=== PATIENT | male | born 1960 | race African-American/Black ===

== ENCOUNTER 2018-08-03 21:09 | Inpatient (IN) | payer MEDICARE ==
--- NOTE | 2018-08-03 22:23 | RAD ---
RIGHT FEMUR TWO VIEWS: 08/03/18 HISTORY: Right leg pain. FINDINGS: Degenerative changes of the hip and knee. Femoral shaft is intact. Right hip not well evaluated, with multiple linear lucencies across the femoral neck on both views. IMPRESSION: Incomplete evaluation of the right hip. If symptoms are referable to the right hip, please consider d edicated hip radiograph exam. No acute osseous abnormalities are apparent. POS: ED
[2018-08-03] MEDS ORDERED: Fentanyl 100 MCG/2 ML VIAL ONE (22:26)
[2018-08-03 22:29] LABS: #Eosinphils 0.1 thou/uL (0.0-0.7); #Lymphocytes 1.5 thou/uL (1.20-3.40); #Neutrophils 8.1 thou/uL (1.40-6.50); %Basophils 0.4 % (0.0-1.0); %Eosinophils 0.7 % (0.0-10.0); %Lymphocytes 14.1 % (21.0-51.0); %Monocytes 9.3 % (0.0-10.0); %Neutrophils 75.4 % (42.0-75.0); Hemoglobin 10.4 g/dL (14.0-18.0); Mean Corpuscular HGB CONC 30.2 g/dL (32.0-36.0); Mean Corpuscular Hemoglobin 25.6 pg (27.0-31.0); Mean Corpuscular Volume 84.8 fL (78.0-98.0); Mean Platelet Volume 7.4 fL (7.4-10.4); Platelet Count 311 thou/uL (130-400); RBC Distribution Width 14.1 % (11.5-14.5); Red Blood Cell (RBC) Count 4.07 mill/uL (4.70-6.10); White Blood Cell (WBC) Count 10.7 thou/uL (4.8-10.8)
--- NOTE | 2018-08-03 22:49 | RAD ---
RIGHT HIP TWO VIEWS: 08/03/18 HISTORY: Right hip injury. FINDINGS: Minimally displaced fracture extends from the greater trochanter to the base of the lesser trochanter . Degenerative changes right hip. Osseous structures are demineralized. IMPRESSION: Intertrochanteric fracture right hip. POS: ED
[2018-08-03 22:52] LABS: ALT (SGPT) 15 U/L (8-55); AST (SGOT) 16 U/L (5-34); Albumin 4.1 g/dL (3.5-5.0); Alkaline Phosphatase 81 U/L (40-150); Anion Gap 15 mmol/L (10-20); BUN (Urea Nitrogen) 21 mg/dL (8.4-25.7); Bilirubin, Total 0.5 mg/dL (0.2-1.2); Calc. Creatinine Clearance 0 mL/min (70-130); Calcium 9.6 mg/dL (7.8-10.44); Carbon Dioxide 29 mmol/L (22-29); Chloride 98 mmol/L (98-107); Estimated GFR-MDRD 13; Globulin 3.7 g/dL (2.4-3.5); Glucose 249 mg/dL (70-105); Potassium 4.5 mmol/L (3.5-5.1); Protein, Total 7.8 g/dL (6.0-8.3); Sodium 137 mmol/L (136-145)
--- NOTE | 2018-08-03 23:23 | RAD ---
CHEST ONE VIEW: 08/03/18 HISTORY: Preop. COMPARISON: 09/29/16. FINDINGS: Cardiac silhouette is magnified by projection. Pulmonary vasculature are unremarkable. Mediastinum is midline. Chronic thickening of the pleura along the right lateral lower chest is stable. No lobar co nsolidation or evidence of pneumothorax. IMPRESSION: No active cardiopulmonary abnormalities are demonstrated. POS: [facility]
[2018-08-03] MEDS ORDERED: Dextrose 5% in Water 1,000 ML IV PRN ×2 (23:35→23:44)
[2018-08-03] MEDS ORDERED: HumaLOG 300 UNITS/3 ML VIAL SC PRN ×2 (23:35→23:44)
[2018-08-03] MEDS ORDERED: Promethazine HCl 25 MG/ML VIAL SLOW IVP PRN (23:35)
[2018-08-03] MEDS ORDERED: Dextrose 50% Abboject 50 ML SYRINGE SLOW IVP PRN ×2 (23:35→23:44)
[2018-08-03] MEDS ORDERED: HYDROcodone/Acetaminophen 10/325 mg Tablet PO PRN (23:35)
[2018-08-03] MEDS ORDERED: traMADol HCl 50 MG TAB PO PRN (23:40)
[2018-08-03] MEDS ORDERED: Acetaminophen 325 MG TAB PO SCH (23:59)
[2018-08-03] MEDS ORDERED: traMADol HCl 50 MG TAB PO SCH (23:59)
[2018-08-04] MEDS ORDERED: Promethazine HCl 25 MG/ML VIAL SLOW IVP PRN ×2 (02:35→16:52)
[2018-08-04] MEDS ORDERED: HYDROcodone/Acetaminophen 10/325 mg Tablet PO PRN (02:35)
[2018-08-04] MEDS ORDERED: Dextrose 5% in Water 1,000 ML IV PRN (02:38)
[2018-08-04] MEDS ORDERED: Dextrose 50% Abboject 50 ML SYRINGE SLOW IVP PRN (02:39)
--- NOTE | 2018-08-04 02:54 | HP ---
DATE OF SERVICE: 08/03/[address] Girish Holbrook from the emergency department. TRAUMA ATTENDING: Dr. Shelton. REASON FOR ADMISSION: Right intertrochanteric hip fracture. HISTORY OF PRESENT ILLNESS: Mr. Thapa is a 58-year-old male with a past medical history of diabetic nephropathy; leading to ERSD on hemodialysis Tuesday, , and Tuesday; CHF; hypertension, who presented to the emergency department today status post mechanical fall landing on his right side. X-rays demonstrate a right intertrochanteric hip fracture. The patient has been given pain control. His vital signs have remained stable. He received his dialysis today. He has no chest pain, no mele rtness of breath, no nausea, no vomiting, and no other distress. Trauma services were contacted for admission to the hospital. Dr. Zacarias with Orthopedics has been consulted and plan for operative repair in the morning. REVIEW OF SYSTEMS: Pertinent positive and negative per the HPI, otherwise regarded as negative. PAST MEDICAL HISTORY: 1. Diabetes. 2. ESRD. 3. Congestive heart failure. 4. Hypertension. PAST SURGICAL HISTORY: Left fistula placement. MEDICATIONS: Tramadol 50 mg 1-2 tabs p.o. 4 times daily as needed, hydralazine 25 mg p.o. 3 times da brandon, simvastatin 40 mg p.o.at night, Renvela 1600 mg p.o. t.i.d., lisinopril 10 mg p.o. daily, Humuli n 70/30, 17 units subcu daily, Lasix 80 mg b.i.d., carvedilol 12.5 mg b.i.d. ALLERGIES: No known drug allergies. FAMILY HISTORY: Mother with coronary artery disease and breast cancer. Father with diabetes. SOCIAL HISTORY: The patient is a former smoker, quitting over 25 years ago; former alcohol abuse, qu itting 2 years ago. Denies any illicit drug use. He currently lives in [place] and he is unable to work. He uses a cane to walk about. He has been . PHYSICAL EXAMINATION: VITAL SIGNS: Blood pressure 139/72, heart rate is 77. He is breathing 14 times a minute, satting 99 % on room air and temperature is 98.2. GENERAL: A 58-year-old male lying in bed, in no acute distress other than some mild pain to the righ t hip. HEENT: Normocephalic, atraumatic. Trachea is midline. Mucous membranes are moist. NECK: No JVD is appreciated. RESPIRATORY: Equal rise and fall. Bilateral breath sounds. Clear to auscultation upper and lower b ilaterally. No rubs or wheezes appreciated. CARDIOVASCULAR: Regular rate and rhythm. No murmurs are appreciated and really no edema in the extr emities with strong pulses. ABDOMEN: Soft and nontender. No grimace, no masses. PELVIS: Stable. MUSCULOSKELETAL: Pain to the right hip on palpation. He does have sensation distal to his right hip fracture. EXTREMITIES: He has got strong pedal pulses bilaterally. No edema. No open wounds and strong pulse s in the upper extremities. He does have a left upper extremity fistula with a good thrill noted. PSYCHIATRIC: Normal mood and affect. NEUROLOGIC: Alert and oriented to person, place, time, and event. DIAGNOSTIC AND LABORATORY DATA: Sodium is 137, potassium 4.5, chloride is 98, CO2 is 29, BUN is 21, creatinine is 5.48, glucose is 249, calcium 9.6, AST and ALT 16 and 15 respectively, alkaline phospha tase is 81. White blood cell of 10.7, platelets of 311, hemoglobin and hematocrit 10.4 and 34.5 resp ectively. He has an EKG that shows a sinus rhythm with rate of 79 with no ectopy. QTC is slightly p rolonged at 460 milliseconds. He has no STEMI, no ischemia is appreciated in all other intervals. T here are within normal axis. Femur x-ray shows a right intertrochanteric hip fracture. A hip x-ray shows a right intertrochanteric hip fracture. ASSESSMENT AND PLAN: 1. Right intertrochanteric hip fracture. 2. Hyperglycemia in the setting of diabetes without evidence of diabetic ketoacidosis. 3. History of end-stage renal disease. 4. Acute traumatic pain. PLAN: 1. Admit the patient to the surgery contre[facility]. 2. Orthopedic Surgery, Dr. Zacarias has been consulted, appreciate recommendations. 3. Pain control as needed tonight. We will try to use oral agents and schedule Tylenol and tramadol , morphine, and [place] as needed. 4. Phenergan for nausea as needed. Hold Zofran secondary to prolonged QTC. 5. Type and screen. 6. Repeat CBC and BMP in the morning to confirm no anemia or active bleeding secondary to his fractu re and stable for surgery. 7. Continue home medications to control blood pressure. 8. Moderate sliding scale insulin q.4 hours. 9. Point of care glucose q.4 hours. 10. N.p.o. now for possible surgery in the morning. We will withhold fluids, given patient has ESRD status, producing some but little urine. Diet will be n.p.o. until after surgery. 11. Activity: Bed rest. 12. FULL CODE. 13. Prophylaxis. We will be renally dosed famotidine, SCDs and withhold chemical deep venous thromb osis prophylaxis until after operative correction. 14. Consults will be PT, OT, and case management. 15. Access: Peripheral IVs. DISPOSITION: Surgery contre[facility]. I have coordinated care with the emergency department physician, the ER staff who has already talked to Dr. Zacarias. I have updated the patient at the bedside and answered all questions.
[2018-08-04 02:56] VITALS: BMI 27.5
[2018-08-04] MEDS: traMADol HCl 50 MG TAB PO SCH ×4 (06:00→23:31)
[2018-08-04] MEDS: Acetaminophen 325 MG TAB PO SCH ×4 (06:00→23:30)
[2018-08-04] MEDS ORDERED: CEFAZOLIN/Water 2 GM/20 ML SYRINGE SLOW IVP SCH (07:30)
[2018-08-04] MEDS: Sevelamer Carbonate 800 MG TAB PO SCH ×3 (07:41→18:14)
[2018-08-04] MEDS: Famotidine 20 MG TAB PO SCH (07:41)
[2018-08-04] MEDS: NIFEdipine XL 30 MG TAB PO SCH ×2 (07:42→08:25)
--- NOTE | 2018-08-04 07:48 | CON ---
DATE OF CONSULTATION: 08/04/2018 CHIEF COMPLAINT: Right hip pain. HISTORY OF PRESENT ILLNESS: Mr. Thapa is a 58-year-old male who was out in front of his house yeste rday. He lost his balance. He fell. He struck his hip on the curb. He was unable to ambulate. He was helped up with his family. He was taken to the emergency department. Of note, he is on dialysi s for end-stage renal disease. He did receive dialysis yesterday morning. His pain is under control . He has been stable overnight. PAST MEDICAL HISTORY: Diabetes, end-stage renal disease, congestive heart failure, and hypertension. PAST SURGICAL HISTORY: Fistula placement left arm. ALLERGIES: No known drug allergies. FAMILY MEDICAL HISTORY: Noncontributory. REVIEW OF SYSTEMS: Positive for right hip pain. SOCIAL HISTORY: The patient denies tobacco, alcohol, or drug use. PHYSICAL EXAMINATION: VITAL SIGNS: Temperature 98.8, pulse is 90, respiratory rate 18, oxygen saturation 97%, blood pressu re 135/78. GENERAL: He is alert and oriented, lying supine in no apparent distress. HEENT: Normocephalic, atraumatic. RESPIRATORY: The patient is breathing comfortably. MUSCULOSKELETAL: The right leg is atraumatic in appearance. There is no ecchymosis, no laceration. He does have some external rotation and slight shortening. He is able flex and extend the foot and ankle distally. Warm and well perfused leg. IMAGES: X-rays of the right hip demonstrate an intertrochanteric femur fracture with mild displaceme nt. IMPRESSION: A 58-year-old male on dialysis with a right intertrochanteric femur fracture. PLAN: At this point, the patient will need to go to surgery. I will plan for a dynamic hip screw fi xation to restore stability to the hip and allow him early mobilization. Goal of surgery is to preve nt complications of prolonged bed rest. Pain will be improved as well. He is aware of. surgical pl an and wants to proceed. He will have ongoing dialysis at his regular schedule an as needed, guided by the Renal Service as well as preoperative and perioperative medical optimization. He will have ap propriate DVT prophylaxis and antibiotic prophylaxis. He should be n.p.o.
[2018-08-04] MEDS ORDERED: Sevelamer Carbonate 800 MG TAB PO SCH (08:00)
[2018-08-04] MEDS: Carvedilol 25 MG TAB PO SCH ×2 (08:27→21:16)
[2018-08-04] MEDS ORDERED: Famotidine 20 MG TAB PO SCH (09:00)
[2018-08-04] MEDS ORDERED: Carvedilol 6.25 MG TAB PO SCH ×2 (09:00)
[2018-08-04] MEDS ORDERED: hydrALAZINE 25 MG TAB PO SCH ×2 (09:00)
--- NOTE | 2018-08-04 11:32 | CON ---
DATE OF CONSULTATION: 08/04/2018 CONSULTING PHYSICIAN: Dr. Vieira REASON FOR CONSULTATION: End-stage renal disease, evaluation and care. REASON FOR ADMISSION: Fall and right hip fracture. HISTORY OF PRESENT ILLNESS: This is a 58-year-old male with history of end-stage renal disease on hemodialysis Tuesday, , and Tuesday, diabetic nephropathy, hypertension, who came to the hospital with a fall and was found to have a fracture and is having surgical evaluation. Nephrology consulted for maintenance hemodialysis. The patient gets dialysis Tuesday, and Tuesday at [facility] and denies any nausea, vomiting, no chest pain, no shortness of breath. Complains of right leg pain. PAST MEDICAL HISTORY: Positive for end-stage renal disease, type 2 diabetes, congestive heart failure, hypertension. PAST SURGICAL HISTORY: Dialysis access placement. HOME MEDICATIONS: Tramadol, hydralazine, simvastatin, Renvela, ____ ____, Lasix , carvedilol, insulin. ALLERGIES: No known drug allergies. SOCIAL HISTORY: No smoking, alcohol or illicit drug abuse. History of smoking in the past. FAMILY HISTORY: Positive for breast cancer, CVA and coronary artery disease. REVIEW OF SYSTEMS: The following complete review of systems was negative, unless otherwise mentioned in the HPI or below: Constitutional: Weight loss or gain, ability to conduct usual activities. Skin: Rash, itching. Eyes: Double vision, pain. ENT/Mouth: Nose bleeding, neck stiffness, pain, tenderness. Cardiovascular: Palpitations, dyspnea on exertion, orthopnea. Respiratory: Shortness of breath, wheezing, cough, hemoptysis, fever or night sweats. Gastrointestinal: Poor appetite, abdominal pain, heartburn, nausea, vomiting, constipation, or diarrhea. Genitourinary: Urgency, frequency, dysuria, nocturia. Musculoskeletal: Pain, swelling. Neurologic/Psychiatric: Anxiety, depression. Allergy/Immunologic: Skin rash, bleeding tendency. PHYSICAL EXAMINATION: GENERAL: This is a well-built male in no apparent distress. VITAL SIGNS: Temperature 98, pulse 89, respiratory rate 18, blood pressure 148/ 83. Musculoskeletal : No tenderness, No edema HEENT: Atraumatic normocephalic Neck: Supple Cardiovascular: S1S2 heard, Rate and rhythm regular Respiratory: Clear to auscultation Gastrointestinal: Abdomen is soft Dermatologic : No skin rash Neurologic: Alert and awake and oriented X3 No focal neurologic deficits. Moving all the extremities. Psychiatric: Mood and affect normal LABS: Hemoglobin 10.4, potassium 4.5, BUN 21, creatinine is 5.4. ASSESSMENT AND PLAN: 1. End-stage renal disease. Continue dialysis Tuesday, and Tuesday. No acute need for dialysis. 2. Edema, controlled. 3. Hypertension, stable. 4. Anemia. Monitor. 5. Right hip fracture. Follow with Orthopedics. Plan is to continue dialysis Tuesday, and Tuesday. The patient is a moderate risk from a kidney standpoint or surgery and okay to have surgery. Continue dialysis Tuesday, and Tuesday. We will follow. Thank you for the consult. KATE
[2018-08-04] MEDS ORDERED: ePHEDrine/0.9% NaCl/PF SYRINGE 50 mg/10 ml ONE (14:21)
[2018-08-04] MEDS ORDERED: Lidocaine 1% PF 5 ML VIAL ONE (14:21)
[2018-08-04] MEDS ORDERED: PHENYLEPHRINE-NS 100 MCG/ML 10 ML SYRINGE ONE (14:21)
[2018-08-04] MEDS ORDERED: PROPOFOL 200 MG/20 ML VIAL ONE (14:21)
[2018-08-04] MEDS ORDERED: Ondansetron PF 4 MG/2 ML Vial ONE (14:21)
[2018-08-04] MEDS ORDERED: CEFAZOLIN/Water 2 GM/20 ML SYRINGE ONE (15:09)
[2018-08-04] MEDS ORDERED: Fentanyl 100 MCG/2 ML VIAL ONE ×2 (15:19→17:19)
--- NOTE | 2018-08-04 16:10 | PRG ---
DATE OF SERVICE: 08/04/2018 SUBJECTIVE: The patient is hospital day #2 status post ground level fall in which he sustained a rig ht hip fracture. The patient is currently on the surgical floor. He has been n.p.o. since midnight. He is scheduled to undergo his orthopedic procedure today. The patient's pain has been controlled overnight and currently has no complaints. The patient is awaiting to be evaluated by Nephrology. Lena danielson is a known patient of Dr. Alonso for his end-stage renal disease. We will let him discuss continuing his scheduled dialysis while he is here inpatient. PHYSICAL EXAMINATION: VITAL SIGNS: Temperature 98.8, heart rate 89, blood pressure 148/83, respirations 18, oxygen saturat ion 96% on room air. GENERAL: The patient is resting comfortably in bed. He is awake, alert, and oriented x3. [place] c kennedy scale 15. HEENT: Unremarkable. LUNGS: Clear to auscultation with good inspiratory and expiratory effort. HEART: Regular rate and rhythm. ABDOMEN: Soft, flat, nontender with hypoactive bowel sounds. Pelvis is stable. The patient is tend er to palpation to right hip consistent with his fracture. NEUROLOGIC: He is neurovascularly intact x4. LABORATORY DATA: There are no labs or radiographs to review this morning. ASSESSMENT AND PLAN: 1. Status post ground level fall. 2. Right hip fracture, awaiting surgical procedure by Orthopedics. 3. Known end-stage renal disease, awaiting evaluation and plans for dialysis. Plan will be to continue supportive care. Postoperatively, the patient will have physical and occupa tional therapy, pain control and we will assess for placement. The evaluation and examination were d iscussed with Dr. Donovan this morning.
[2018-08-04] MEDS ORDERED: Ondansetron HCl/PF 4 MG/2 ML Vial IVP PRN (16:52)
[2018-08-04] MEDS ORDERED: Promethazine HCl 25 MG/ML VIAL IM PRN (16:52)
--- NOTE | 2018-08-04 20:53 | RAD ---
TWO VIEWS RIGHT HIP 08/04/18 INDICATION: Right hip nail. COMPARISON: Prior exam dated 08/03/18. FINDINGS: Since the comparison examination there has been interval placement of the hip screw and side plate tr ansfixing the patient's right hip intertrochanteric fracture. Fracture alignment is near anatomic. Th e instrumentation projects in the expected position. Total fluoroscopic time was 50.7 seconds. Total exposure was 10.19 mGy. IMPRESSION: ORIF right hip. POS: ED
[2018-08-04] MEDS ORDERED: Simvastatin 20 MG TAB PO SCH (21:00)
--- NOTE | 2018-08-04 21:06 | OP ---
DATE OF PROCEDURE: 08/04/2018 PROCEDURE: Reduction and fixation of right intertrochanteric femur fracture using dynamic hip screw. PREOPERATIVE DIAGNOSIS: Right intertrochanteric femur fracture. POSTOPERATIVE DIAGNOSIS: Right intertrochanteric femur fracture. COMPLICATIONS: None. ESTIMATED BLOOD LOSS: 150 mL. SURGEON: Shoaib Zacarias M.D. MAIL AGENT: Douglas Varela. ESTIMATED BLOOD LOSS: 150 mL. IMPLANTS: Synthes dynamic hip screw 100 mm screw with 3-hole side plate. INDICATIONS: Mr. Thapa is a 58-year-old male who fell. He fractured the right proximal femur. He was found to have an intertrochanteric fracture that required surgery. Risks have been reviewed in d etail. He elected to proceed with the operation. DESCRIPTION OF PROCEDURE: Mr. Thapa was identified in the preoperative holding area. He was alena d to the operating room. His correct extremity was marked. He was positioned supine. He was placed in traction on the fracture table. The right lower extremity was prepped and draped in sterile fash ion. At this point, we used intraoperative x-ray to obtain an appropriate start point. We then made an incision along the lateral thigh. We dissected down to the fascia, it was incised. We then spli t the vastus lateralis. This brought us directly down to the femur. At this point, we applied our 1 35-degree angle guide. We inserted a guidewire into the center position of the femoral head. We debi cked this in orthogonal planes. At this point, we overdrilled the guidewire. We then placed our jaz tral screw. Next, we impacted a side plate. A 3-hole plate was used. We placed 3 distal screws thr ough the plate. This fixed the fracture rigidly and all hardware was in an acceptable position. At this point, we thoroughly irrigated and closed the deep fascia as well as superficial tissue layer s appropriately. A sterile dressing was applied. The patient was taken to the recovery room in good condition without complication.
[2018-08-04] MEDS: Simvastatin 20 MG TAB PO SCH (21:15)
[2018-08-04] MEDS: CEFAZOLIN/Water 2 GM/20 ML SYRINGE SLOW IVP SCH (23:34)
[2018-08-05 05:11] LABS: #Eosinphils 0.2 thou/uL (0.0-0.7); #Lymphocytes 1.2 thou/uL (1.20-3.40); #Monocytes 0.8 thou/uL (0.11-0.59); #Neutrophils 6.9 thou/uL (1.40-6.50); %Basophils 0.3 % (0.0-1.0); %Eosinophils 2.6 % (0.0-10.0); %Lymphocytes 12.5 % (21.0-51.0); %Monocytes 9.2 % (0.0-10.0); %Neutrophils 75.4 % (42.0-75.0); Mean Corpuscular HGB CONC 31.5 g/dL (32.0-36.0); Mean Corpuscular Volume 85.6 fL (78.0-98.0); Mean Platelet Volume 7.9 fL (7.4-10.4); Platelet Count 234 thou/uL (130-400); Red Blood Cell (RBC) Count 3.34 mill/uL (4.70-6.10); White Blood Cell (WBC) Count 9.2 thou/uL (4.8-10.8)
[2018-08-05 05:26] LABS: Anion Gap 14 mmol/L (10-20); BUN (Urea Nitrogen) 39 mg/dL (8.4-25.7); Calc. Creatinine Clearance 13 mL/min (70-130); Carbon Dioxide 30 mmol/L (22-29); Chloride 94 mmol/L (98-107); Estimated GFR-MDRD 8; Glucose 164 mg/dL (70-105); Magnesium 2.2 mg/dL (1.6-2.6); Phosphorus 7.6 mg/dL (2.3-4.7); Potassium 4.6 mmol/L (3.5-5.1); Sodium 133 mmol/L (136-145)
[2018-08-05] MEDS: traMADol HCl 50 MG TAB PO SCH ×4 (05:28→23:39)
[2018-08-05] MEDS: Acetaminophen 325 MG TAB PO SCH ×4 (05:28→23:39)
[2018-08-05] MEDS: CEFAZOLIN/Water 2 GM/20 ML SYRINGE SLOW IVP SCH (06:06)
[2018-08-05] MEDS: Sevelamer Carbonate 800 MG TAB PO SCH ×3 (08:09→18:26)
[2018-08-05] MEDS ORDERED: Epoetin (ESRD) 10,000 UNITS/ML VIAL IVP SCH (09:00)
--- NOTE | 2018-08-05 10:21 | PRG ---
DATE OF SERVICE: 08/05/2018 SUBJECTIVE: Patient was seen and examined at bedside and overnight events noted. Patient denies any shortness of breath or chest pain or palpitation. No history of nausea or vomiting or diarrhea or fever or chills or cramps. OBJECTIVE: GENERAL: This is a well-built male in no apparent distress. VITAL SIGNS: Temperature 99.4, pulse 92, respirations 18, blood pressure 108/ 64. HEENT: Atraumatic, normocephalic. Oral mucosa is moist. NECK: Supple. CARDIOVASCULAR: S1, S2 heard. Rate and rhythm regular. RESPIRATORY: Clear to auscultation. GASTROINTESTINAL: Abdomen is soft. MUSCULOSKELETAL: No tenderness. No edema. DERMATOLOGIC: No skin rash. NEUROLOGIC: Alert and awake and oriented x3. No focal neurologic deficits. Moving all the extremities. PSYCHIATRIC: Mood and affect normal. LABORATORY DATA: Potassium is 4.6, BUN 39, creatinine 3.4. ASSESSMENT AND PLAN: 1. End-stage renal disease. We will continue dialysis. 2. Edema, controlled. 3. Hypertension, stable. 4. Anemia, stable. We will add Epogen. Plan is to continue dialysis as tolerated. MTDD
[2018-08-05] MEDS: Famotidine 20 MG TAB PO SCH (14:56)
[2018-08-05] MEDS: NIFEdipine XL 30 MG TAB PO SCH (14:59)
[2018-08-05] MEDS: Carvedilol 25 MG TAB PO SCH ×2 (15:00→20:13)
--- NOTE | 2018-08-05 17:00 | PRG ---
DATE OF SERVICE: 08/05/2018 SUBJECTIVE: The patient is hospital day #3, postop day #1 status post right hip fracture. Yesterday , he underwent reduction and fixation of his right intertrochanteric femur fracture using a dynamic h ip screw by Dr. Zacarias. The patient tolerated this procedure well. He was also evaluated by Neph rology yesterday because he is a patient known to them with end-stage renal disease. The patient is due to have dialysis today. We are hoping that he will be able to participate with physical therapy prior to his dialysis session. Otherwise, the patient had no issues overnight. He is tolerating a d iet this morning and his pain is controlled. PHYSICAL EXAMINATION: VITAL SIGNS: Temperature is 99.4, heart rate 92, blood pressure 108/64, respirations 16, oxygen satu ration 98% on 2 liters via nasal cannula. GENERAL: The patient is resting comfortably in bed. He is awake, alert, oriented, his [place] coma scale is 15. HEENT: Unremarkable. LUNGS: Clear to auscultation with good inspiratory and expiratory effort. HEART: Regular rate and rhythm. ABDOMEN: Soft, flat, nontender with active bowel sounds. EXTREMITIES: Neurovascularly intact x4. Postop dressing is clean, dry, and intact. LABORATORY DATA AND IMAGING DATA: White blood cell count 9.2, hemoglobin 9.0, hematocrit 28.[address] atelets 234. Sodium 133, potassium 4.6, chloride 94, CO2 30, BUN 39, creatinine 8.40, glucose 164, m agnesium 2.2 and phosphorus 7.6. There are no radiographs to review this morning. ASSESSMENT AND PLAN: 1. Status post ground level fall. 2. Status post open reduction and internal fixation of right hip fracture. 3. End-stage renal disease, awaiting dialysis. Plan will be to continue supportive care, physical and occupational therapy, pain control and await f inal placement decision. The patient does have a rehab screen ordered. The evaluation and examinati on were discussed with Dr. Donovan this morning.
[2018-08-05] MEDS: Simvastatin 20 MG TAB PO SCH (20:15)
[2018-08-05] MEDS: HumaLOG 300 UNITS/3 ML VIAL SC PRN (21:51)
[2018-08-06 05:36] LABS: #Eosinphils 0.2 thou/uL (0.0-0.7); #Lymphocytes 1.2 thou/uL (1.20-3.40); #Monocytes 1.2 thou/uL (0.11-0.59); #Neutrophils 5.4 thou/uL (1.40-6.50); %Basophils 0.3 % (0.0-1.0); %Eosinophils 2.1 % (0.0-10.0); %Lymphocytes 14.7 % (21.0-51.0); %Monocytes 14.8 % (0.0-10.0); %Neutrophils 68.2 % (42.0-75.0); Hemoglobin 8.3 g/dL (14.0-18.0); Mean Corpuscular HGB CONC 30.7 g/dL (32.0-36.0); Mean Corpuscular Hemoglobin 26.3 pg (27.0-31.0); Mean Corpuscular Volume 85.5 fL (78.0-98.0); Platelet Count 212 thou/uL (130-400); RBC Distribution Width 13.6 % (11.5-14.5); Red Blood Cell (RBC) Count 3.14 mill/uL (4.70-6.10); White Blood Cell (WBC) Count 7.9 thou/uL (4.8-10.8)
[2018-08-06] MEDS: traMADol HCl 50 MG TAB PO SCH ×4 (05:51→23:14)
[2018-08-06] MEDS: Acetaminophen 325 MG TAB PO SCH ×4 (05:52→23:14)
[2018-08-06 05:58] LABS: Anion Gap 12 mmol/L (10-20); BUN (Urea Nitrogen) 26 mg/dL (8.4-25.7); Calc. Creatinine Clearance 17 mL/min (70-130); Carbon Dioxide 31 mmol/L (22-29); Chloride 95 mmol/L (98-107); Estimated GFR-MDRD 11; Glucose 164 mg/dL (70-105); Potassium 4.3 mmol/L (3.5-5.1); Sodium 134 mmol/L (136-145)
[2018-08-06] MEDS: HumaLOG 300 UNITS/3 ML VIAL SC PRN ×3 (06:30→17:38)
[2018-08-06] MEDS: Sevelamer Carbonate 800 MG TAB PO SCH ×3 (08:21→17:38)
[2018-08-06] MEDS: Carvedilol 25 MG TAB PO SCH ×2 (08:22→20:35)
[2018-08-06] MEDS: NIFEdipine XL 30 MG TAB PO SCH (08:23)
[2018-08-06] MEDS: Famotidine 20 MG TAB PO SCH (08:24)
[2018-08-06] MEDS: traMADol HCl 50 MG TAB PO PRN (09:38)
--- NOTE | 2018-08-06 14:36 | PRG ---
DATE OF SERVICE: 08/06/2018 SUBJECTIVE: Patient was seen and examined at bedside and overnight events noted. Patient denies any shortness of breath or chest pain or palpitation. No history of nausea or vomiting or diarrhea or f ever or chills or cramps. OBJECTIVE: GENERAL: This is a well-built male, in no apparent distress. VITAL SIGNS: Temperature 97.3, pulse 80, respiratory rate 18, blood pressure 120/70. HEENT: Atraumatic, normocephalic. Oral mucosa is moist. NECK: Supple. CARDIOVASCULAR: S1, S2 heard. Rate and rhythm regular. RESPIRATORY: Clear to auscultation. GASTROINTESTINAL: Abdomen is soft. MUSCULOSKELETAL: No tenderness. No edema. DERMATOLOGIC: No skin rash. NEUROLOGIC: Alert and awake and oriented x3. No focal neurologic deficits. Moving all the extremit ies. PSYCHIATRIC: Mood and affect normal. LABORATORY DATA: Potassium is 4.3, BUN is 26, creatinine is 6.3. ASSESSMENT AND PLAN: 1. End-stage renal disease. We will continue on dialysis as tolerated. 2. Hypertension. 3. Edema. 4. Anemia. Monitor hemoglobin. 5. started with dialysis. 6. We will continue on dialysis as tolerated.
--- NOTE | 2018-08-06 14:51 | PRG ---
DATE OF SERVICE: 08/06/2018 SUBJECTIVE: The patient is hospital day #4, postop day #2, status post right hip fracture for which underwent open reduction internal fixation. The patient tolerated the procedure well. Yesterday, he started working with physical therapy. The patient also underwent his scheduled dialysis which murali use of him being fatigued, he was not able to participate as well as possible with physical therapy. Overnight, he had no issues. This morning, he is tolerating his diet and is attempting again to wor k with physical therapy. PHYSICAL EXAMINATION: VITAL SIGNS: Temperature is 98.6, heart rate 96, blood pressure 118/62, respirations 18, oxygen satu ration 92% on 1 liter via nasal cannula. GENERAL: The patient is resting comfortably in bed. He is awake, alert, and oriented x3. [place] c kennedy scale is 15. HEENT: Unremarkable. LUNGS: Clear to auscultation with good inspiratory and expiratory effort. HEART: Regular rhythm. ABDOMEN: Soft, flat, nontender with active bowel sounds. Pelvis is stable. Postop dressing is delisa n, dry, and intact. EXTREMITIES: Neurovascularly intact. LABORATORY DATA: White blood cell count 7.9, hemoglobin 8.3, hematocrit 26.7, platelets 212. Sodium 134, potassium 4.3, chloride 95, CO2 of 31, BUN 26, creatinine is 6.31, glucose 164, magnesium 2.0, phosphorus 6.0. There are no radiographs to review this morning. ASSESSMENT AND PLAN: 1. Status post ground level fall. 2. Status post open reduction internal fixation of right hip fracture. 3. End-stage renal disease. Plan will be to continue supportive care, scheduled dialysis, and await placement decision. The eval uation and examination will be discussed with Dr. Donovan after this dictation.
[2018-08-06] MEDS: Simvastatin 20 MG TAB PO SCH (20:32)
[2018-08-07] MEDS: traMADol HCl 50 MG TAB PO SCH ×2 (05:16→11:15)
[2018-08-07] MEDS: Acetaminophen 325 MG TAB PO SCH ×2 (05:17→11:15)
[2018-08-07 05:49] LABS: Anion Gap 15 mmol/L (10-20); BUN (Urea Nitrogen) 42 mg/dL (8.4-25.7); Calc. Creatinine Clearance 12 mL/min (70-130); Calcium 9.2 mg/dL (7.8-10.44); Carbon Dioxide 28 mmol/L (22-29); Chloride 93 mmol/L (98-107); Estimated GFR-MDRD 8; Glucose 124 mg/dL (70-105); Magnesium 2.4 mg/dL (1.6-2.6); Phosphorus 7.2 mg/dL (2.3-4.7); Potassium 4.4 mmol/L (3.5-5.1); Sodium 132 mmol/L (136-145)
[2018-08-07 06:25] LABS: Band 2 % (5-11); Eosinophils 4 % (0-10); Hemoglobin 8.1 g/dL (14.0-18.0); Hypochromia SLIGHT = 6-15 cells (100X) (0-5/hpf); Lymphocytes 19 % (21-51); MDiff Complete? YES; Mean Corpuscular HGB CONC 30.9 g/dL (32.0-36.0); Mean Corpuscular Hemoglobin 26.4 pg (27.0-31.0); Mean Corpuscular Volume 85.3 fL (78.0-98.0); Mean Platelet Volume 7.8 fL (7.4-10.4); Monocytes 8 % (0-10); Neutrophil 67 % (42-75); PLT Morphology Comment Appears Adequate; Platelet Count 235 thou/uL (130-400); Polychromasia SLIGHT = 2-3 cells (100X) (0-2/hpf); RBC Distribution Width 13.5 % (11.5-14.5); Red Blood Cell (RBC) Count 3.07 mill/uL (4.70-6.10); White Blood Cell (WBC) Count 6.4 thou/uL (4.8-10.8)
[2018-08-07] MEDS: traMADol HCl 50 MG TAB PO PRN (08:55)
[2018-08-07] MEDS: Sevelamer Carbonate 800 MG TAB PO SCH ×2 (08:55→12:55)
[2018-08-07] MEDS: Famotidine 20 MG TAB PO SCH (08:56)
[2018-08-07] MEDS: NIFEdipine XL 30 MG TAB PO SCH (08:56)
[2018-08-07] MEDS: Carvedilol 25 MG TAB PO SCH (08:56)
--- NOTE | 2018-08-07 10:55 | PRG ---
DATE OF SERVICE: 08/07/2018 SUBJECTIVE: This is a 58-year-old gentleman being seen for end-stage renal disease. The patient den ied any nausea, vomiting or chest pain. PHYSICAL EXAMINATION: GENERAL: The patient is awake, alert. VITAL SIGNS: Pulse 75, breathing 16, blood pressure is 104/68. OBJECTIVE: See above. Awake, alert, in no acute distress. GENERAL APPEARANCE AND MENTAL STATUS: Fair. HEAD/NECK: Normocephalic. Atraumatic. EYES: EOMI. No deformity. EARS: Clear. No ulcers. NOSE: Intact. No lesions. MOUTH: Clear. No discharge. THROAT: Clear. No exudate. LUNGS: Clear. No crackles. CARDIAC: S1, S2. No rub. ABDOMEN: Benign. BS+. GENITALIA/RECTUM: Mckenzie absent. BACK/EXTREMITIES: Edema 0+ Ulcer- NEUROLOGICAL: Alert and motor intact. SKIN: Rash- Bruise- LYMPHATICS: Edema- Ulcer- LABORATORY DATA: Show hemoglobin 8.1. ASSESSMENT AND RECOMMENDATIONS: 1. Stage 6 chronic kidney disease, plan hemodialysis. 2. Hypertension, stable. 3. Anemia, stable. 4. Medication based on glomerular filtration rate are appropriate.
[2018-08-07 16:05] VITALS: BP 120/66; TEMP 98.3
--- NOTE | 2018-08-08 02:36 | DIS-2 ---
DATE OF ADMISSION: 08/04/2018 DATE OF DISCHARGE: 08/07/2018 RESIDENT: Monica Dykes MD SUPERVISING ATTENDING: Dr. Donovan. CONSULTS: Case management, Orthopedics, Nephrology, PT, OT. PROCEDURE: On 08/04/2018, reduction and fixation of right intertrochanteric femur fracture using dynamic hip screw. PRIMARY DIAGNOSIS: Right intertrochanteric hip fracture, status post fixation. SECONDARY DIAGNOSES: Diabetes, end-stage renal disease on dialysis, congestive heart failure, hypertension. DISCHARGE MEDICATIONS: 1. Acetaminophen (Tylenol extra strength) 1000 mg oral every 6 hours as needed. 2. Aspirin 81 mg oral twice daily. 3. Ibuprofen 800 mg oral every 8 hours as needed. 4. Tramadol (Ultram) 50 mg oral every 6 hours. 5. Simvastatin 40 mg oral at bedtime. 6. Humulin 70/30 20 units subcutaneously daily. 7. Lisinopril 20 mg oral daily. 8. Sevelamer carbonate (Renvela) 2400 mg oral 3 times daily with meals. 9. Carvedilol 37.5 mg oral twice daily. 10. Nifedipine (Procardia-XL) 30 mg oral daily. DISCONTINUED MEDICATIONS: None. HISTORY OF PRESENT ILLNESS AND HOSPITAL COURSE: This is a 58-year-old male who fell outside his home on 08/03/2018 after losing his balance. The patient has a significant past medical history of end-stage renal disease on dialysis, CHF, and hypertension. The patient was found to have a right intertrochanteric hip fracture. The patient was then admitted to the surgery [facility] and Orthopedic Surgery was consulted for fixation of the fracture. The patient underwent reduction and fixation of the fracture on 08/[address] Zacarias. He tolerated the surgery well and returned to his room in good condition without complication. The patient received physical and occupational therapy after surgery. The patient has remained vitally stable throughout his stay. The patient has been pain controlled with Tylenol and Ultram. Nephrology was also consulted during his stay as the patient is known to them with end-stage renal disease. The patient receives dialysis yesterday and will continue with dialysis as tolerated. The patient has been tolerating his diet well, has passed flatus and had a bowel movement. The patient is being discharged to [facility]. They will provide transportation for patient to attend dialysis Tuesday, , and Tuesday. The patient was seen and examined by Dr. Donovan on the day of discharge who is in agreement with the plan above. The patient's questions were answered and he acknowledged understanding of the plan. Dr. Donovan also called Dr. Bonds to inform him of the plan. DISPOSITION: Stable. DISCHARGE INSTRUCTIONS: 1. Location: [facility]. 2. Diet: Regular. 3. Activity: Weight bearing as tolerated. 4. Followup: Follow up with primary care physician, Dr. Bonds within 7 days. Follow up with Ortho in 7-10 days. MTDD
--- NOTE | 2018-08-12 13:23 | EKG ---
Test Reason : Blood Pressure : / mmHG Vent. Rate : 079 BPM Atrial Rate : 079 BPM P-R Int : 136 ms QRS Dur : 080 ms QT Int : 402 ms P-R-T Axes : 051 013 044 degrees QTc Int : 460 ms Normal sinus rhythm Nonspecific T wave abnormality Prolonged QT Abnormal ECG Confirmed by STEPH LOPEZ ([id number]), scientific editor WAGNER HEARD ([id number]) on 08/12/2018 1:22:55 PM Referred By: Confirmed By:STEPH LOPEZ
== END 2018-08-07 16:50 | DRG 480 ==
LOC: ERS 21:09 → SURG A 08-04 02:21
PROVIDERS: ADMIT Specialist; ATTEND Specialist
PROC: 0QS604Z Reposition Right Upper Femur with Internal Fixation Device, Open Approach (ICD-10-PCS; principal; 2018-08-04)
PROC: 5A1D70Z Performance of Urinary Filtration, Intermittent, Less than 6 Hours Per Day (ICD-10-PCS; 2018-08-05)
DX: S72.141A Displaced intertrochanteric fracture of right femur, initial encounter for closed fracture (principal); N18.6 End stage renal disease; I13.2 Hypertensive heart and chronic kidney disease with heart failure and with stage 5 chronic kidney disease, or end stage renal disease; W18.30XA Fall on same level, unspecified, initial encounter; E11.21 Type 2 diabetes mellitus with diabetic nephropathy; E11.22 Type 2 diabetes mellitus with diabetic chronic kidney disease; I50.9 Heart failure, unspecified; Z99.2 Dependence on renal dialysis; Z87.891 Personal history of nicotine dependence; E11.65 Type 2 diabetes mellitus with hyperglycemia; D64.9 Anemia, unspecified
CPT/HCPCS: 36415; 36416; 71045; 76001; 80048; 80053; 83735; 84100; 85025; 86850; 86900; 86901; 90935; 93005; 94760; 96374; C1713; C1769; G0257; G0390; G8978-GP-CM; G8979-GP-CK; G8987-GO-CM; G8988-GO-CK; J2001; J2270; J2405; J2704; J3010; Q4081

== ENCOUNTER 2020-04-08 18:40 | Inpatient (IN) | payer MEDICARE ==
[2020-04-08] MEDS ORDERED: Dextrose 5% in Water 1,000 ML IV PRN (21:10)
[2020-04-08] MEDS ORDERED: Ondansetron ODT 4 MG TAB PO PRN (21:10)
[2020-04-08] MEDS ORDERED: HumaLOG 300 UNITS/3 ML VIAL SC PRN (21:10)
[2020-04-08] MEDS ORDERED: Ondansetron PF 4 MG/2 ML Vial IVP PRN (21:10)
[2020-04-08] MEDS ORDERED: Dextrose 50% Abboject 50 ML SYRINGE SLOW IVP PRN (21:10)
[2020-04-08] MEDS ORDERED: Bisacodyl 5 MG TAB PO PRN (21:33)
--- NOTE | 2020-04-08 21:40 | PDOC.FPRHP ---
- History of Present Illness Chief Complaint: syncope, shortness of breath History of Present Illness: 59yo AAM with h/o ESRD on HD, CHF, IDDMII, HTN, legally blind, and CVA with residual L-sided deficits who presented via direct admit from [facility] ED for syncopal episodes and acute hypoxic respiratory failure 2/2 R pleural effusion. Patient himself poor historian, history obtained from patient , , and ED documentation. Patient was at routine HD today, was then notified that patient had syncopal episode and low blood pressure. He was given IVF and returned to baseline and was transported home. At home, patient had orthostatic syncopal episode while transferring off bus. EMS was then called and patient was transported to ED. states he had 1 additional syncopal episode, lasting a few seconds, on Tuesday but otherwise these are new events. No recent illness, no fevers, chills, n/v, constipation. Few loose stools. Patient unsure of any blood in stools 2/2 legal blindness. He also endorses intermittent, cramping, abdominal pain, unassociated with food, presents for at least 1 month. also states he has become progressively short of breath over past month, no acute events. Patient denies any SOB himself as well as no CP, SANTIZO, and does not endorse syncopal episodes. Further history obtained from , patient was admitted to [facility] in [place] for SOB and found to have "fluid on lungs" that required thoracentesis. This was about 6 months ago. unsure of any results and have not had follow up regarding this. ED Course: Given 500cc NS bolus. - Allergies/Adverse Reactions Allergies Allergy/AdvReac Type Severity Reaction Status Date / Time No Known Allergies Allergy Verified 01/05/20 08:28 - Home Medications Medication Instructions Recorded Confirmed Type Carvedilol 37.5 mg PO BID 08/04/18 04/08/20 History prednisoLONE Acetate [Prednisolone 1 drop EA EYE DAILY 08/13/18 04/08/20 History Acetate] Bisacodyl [Dulcolax] 10 mg PO DAILYPRN PRN tab 09/05/18 04/08/20 Rx Loperamide HCl [Imodium] 2 mg PO PRN PRN cap 09/05/18 04/08/20 Rx Simvastatin [Zocor] 40 mg PO HS tab 09/05/18 04/08/20 Rx Calcium Acetate [Phoslo] 1,334 mg PO ASDIR 04/08/20 04/08/20 History Calcium Acetate [Phoslo] 2,668 mg PO TID-WM 04/08/20 04/08/20 History Losartan [Cozaar] 50 mg PO DAILY 04/08/20 04/08/20 History NIFEdipine [Procardia XL] 60 mg PO DAILY 04/08/20 04/08/20 History HumuLIN 70/30 [HumuLIN 70/30 Vial] 20 units SC DAILY 04/09/20 04/09/20 History - History PMHx: CVA x2, most recent in 2018 with L-sided deficits CHF HTN IDDMII ESRD on HD T,,Sat Legally Blind PSHx: L AV graft for HD access FHx: Mom and aunt with unknown cancers Social: , lives in [place] with . 25+py smoking history, quit in 1994. No EtOH or illicit drug use. - Review of Systems General: reports: fatigue. denies: fever/chills, weight/appetite/sleep changes , night sweats Eyes: reports: vision changes (chronic legally blind) ENT: denies: nasal congestion, rhinorrhea Respiratory: reports: shortness of breath. denies: cough, congestion Cardiovascular: reports: paroxysmal nocturnal dyspnea, orthopnea (2 pillow). denies: chest pain, palpitation, edema Gastrointestinal: reports: diarrhea (x1 daily), abdominal pain. denies: nausea , vomiting, constipation Skin: denies: rashes Musculoskeletal: denies: pain Neurological: reports: syncope - Vital signs 83kg Selected Entries 04/08/20 20:09 Temperature 98.5 F Pulse Rate 76 Blood Pressure 124/74 [Semi-Fowlers] Respiratory 22 H Rate O2 Sat by Pulse 93 L Oximetry Oxygen Flow 2 Rate Oxygen Delivery Nasal Cannula Method - Physical Exam Constitutional: NAD, awake, alert and oriented, well developed HEENT: conjunctiva clear, no scleral icterus, other (completely blind, hard of hearing) Neck: supple, trachea midline, no JVD Heart: RRR, normal S1/S2, no murmurs/rubs/gallops, pulses present, no edema Lungs: no respiratory distress, no wheezing, no retractions, other (No breath sounds on R as compared to L. Decreased tactile fremitus on R. Asymmetric egophany. Dullness to percussion on entire R side of lung. Belly breathing.) Abdomen: soft, non-tender, bowel sounds present Musculoskeletal: normal structure, normal tone Neurological: other (generalized weakness) Skin: no rash/lesions, other Heme/Lymphatic: no unusual bruising or bleeding, no purpura, no petechia Psychiatric: normal mood and affect, good judgment and insight, intact recent and remote memory FMR H&P: Results - Labs Lab results: Hb 7.0. Plt 448. Wbc 4.5 - Radiology Interpretation Chest x-ray Status: image reviewed by me (R hemithorax opacification with L midline shift), report reviewed by me CT scan - head Status: report reviewed by me (no acute process) CT scan - chest Status: image reviewed by me (Complete opacification of R pleural cavity with L midline shift), report reviewed by me FMR H&P: A/P - Problem List (1) Pleural effusion Current Visit: Yes Status: Acute Code(s): J90 - PLEURAL EFFUSION, NOT ELSEWHERE CLASSIFIED (2) Acute respiratory failure with hypoxia Current Visit: Yes Status: Acute Code(s): J96.01 - ACUTE RESPIRATORY FAILURE WITH HYPOXIA (3) ESRD (end stage renal disease) on dialysis Current Visit: Yes Status: Chronic Code(s): N18.6 - END STAGE RENAL DISEASE ; Z99.2 - DEPENDENCE ON RENAL DIALYSIS (4) Hypertension Current Visit: Yes Status: Chronic Code(s): I10 - ESSENTIAL (PRIMARY) HYPERTENSION - Plan 59yo AAM with h/o ESRD on HD, CHF, IDDMII, HTN, legally blind, and CVA with residual L-sided deficits who presented via direct admit from [facility] ED for syncopal episodes and acute hypoxic respiratory failure 2/2 R pleural effusion. #Acute hypoxic respiratory failure 2/2 R pleural effusion - CXR and CTA with R massive pleural effusion with complete R lung collapse and L midline shift - Pulm, Dr. Ramirez, made aware of patient in case of decompensation - Will plan for diagnostic and therapeutic thoracentesis in AM, R/B/A discussed with patient and consent obtained - Will need LDH, protein, cytology, Gram stain and culture of thoracentesis fluid - Suspected malignant with h/o tob abuse vs CHF vs ESRD cause - will obtain records from [facility] as has had [place] approx 6 months ago #Syncope - suspect orthostatic hypotension vs sxs anemia - CT head with acute findings - will obtain 12-lead EKG and monitor on tele - Echo ordered #Symptomatic anemia - Hb 7.0 - Syncopal episode - type and cross with transfusion of 1u pRBC - no s/s of acute blood loss at this time, will monitor. Will obtain stool guiac #Elevated D-dimer - CTA negative for PE - likely from underlying condition conditions, including ESRD #ESRD on HD - T//Tue Dialysis - Will consult nephro in AM, known to Dr. Alonso #IDDMII - Hyperglycemic protocol, ACHS - Unsure of home insulin dose, will clarify with in AM and restart home insulin - Mild SS #HTN - orthostatic syncope at presentation - will hold home BP meds and monitor - orthostatic vitals #Possible history of CHF - documented history but patient unaware - possibly contributing to pleural effusion - BNP mildly elevated at 134 - Will obtain Echo, Strict I's and O's, cont to monitor PCP: [facility] [place] Code: Full Diet: Renal, NPO at [place] IVF: SL VTE: SCDs Disposition/LOS: Admit to tele inpt for acute hypoxic respiratory 2/2 pleural effusion and symptomatic anemia. Plan for thoracentesis in AM. Anticipapte LOS >48rs. FMR H&P: Upper Level - Plan Date/Time: 04/08/202137 ISarwat PGY2, have evaluated this patient and agree with findings/plan as outlined by internet network specialist resident. Pertinent changes/additions are listed here. 59yo M presenting after syncopal episodes. Exam and imaging concerning for significant pleural effusion. Admitted for hypoxic respiratory failure 2/2 this pleural effusion of which multiple etiologies are possible considering hx of ESRD, CHF, and smoking. Suspect malignancy. Pt is stable hemodynamically and can wait at this time for diagnostic and therapeutic thoracentesis. This will be accomplished in the AM or sooner if pt decompensates. Other medical problems will have plan as outlined by internet network specialist note. Addendum - Attending - Attending Attestation Date/Time: 04/08/202145 I personally evaluated the patient and discussed the management with Dr. Dennis and Dr. Fenton I agree with the History, Examination, Assessment and Plan documented above with any addition or exceptions noted below. 59 yo male with hx of ESRD on HD, CHF, IDDM, and cardiovascular dz with hx of CVA x2 presents for transfer of care from outside facility due to syncopal episodes and acute respiratory failure 2/2 right plueral effusion. Patient poor historian and denied any complaints other than a positive ROS of loose stools. Patient denied any recent syncopal episodes. contacted for HPI. noted several episodes of syncopal events recently with 2 occurring today. Initial event was after the complition of HD. Thought to be due to hypovolemia/ orthostasis. IVFs given and improved. Sent home with precautions. Upon arriving home, second syncopal event. EMS called. Transported to [facility]. Upon evaluation, patient noted to have mild hypoxia with room air sat of 92%. CXR with right-sided effusion. H&H noted to be below baseline. ED MD called for transfer for pulm evaluation and throcentesis. BP and other vitals stable and grossly normal range. Required 2 L O2 via NC. CT head and chest performed. reported a previous complication of pleural effusion requiring throcentesis. VS and labs reviewed. Awaiting imaging report. - syncope: Likely related to orthostasis and hypovolemia 2/2 HD and [address] spacing[address] on tele to monitor cardiac rhythm. Consult cards as indicated. Trend labs. Adjust medications as indicated. - acute hypoxic respiratory failure: Improved on 2 L O2 via NC. Patient denies symptoms. No acute distress on exam. reports recently MD trying to get home O2 approved. - right pleural effusion: Imaging pending. Previous need for tap. Pulm notified. [facility] med faculty to assist in tap in AM. Send for studies. Contact [facility] for records. - ESRD on HD: Consult nephro in AM. Correct electrolytes as needed. Trend. Blood as needed. HD per nephro. - Continue home meds and adjust as needed per other chronic conditions. Request medical records. - ppx: GI as needed. Hep if continues hospitalization after tap. SCDs at this time for VTE. Myles
[2020-04-08] MEDS ORDERED: Calcium Acetate 667 MG CAP PO SCH (21:45)
[2020-04-09 04:41] LABS: INR-International Normal Ratio 1.4; PTT 40.4 sec (22.9-36.1); Prothrombin Time 17.1 sec (12.0-14.7)
[2020-04-09 04:54] LABS: ALT (SGPT) 14 U/L (8-55); AST (SGOT) 16 U/L (5-34); Albumin 3.2 g/dL (3.5-5.0); Alkaline Phosphatase 142 U/L (40-110); Anion Gap 14 mmol/L (10-20); BUN (Urea Nitrogen) 29 mg/dL (8.4-25.7); Bilirubin, Total 0.4 mg/dL (0.2-1.2); Calc. Creatinine Clearance 16 mL/min (70-130); Calcium 8.9 mg/dL (7.8-10.44); Carbon Dioxide 33 mmol/L (22-29); Chloride 98 mmol/L (98-107); Estimated GFR-MDRD 12; Globulin 4.2 g/dL (2.4-3.5); Glucose 149 mg/dL (70-105); Potassium 3.9 mmol/L (3.5-5.1); Protein, Total 7.4 g/dL (6.0-8.3); Sodium 141 mmol/L (136-145)
[2020-04-09 06:03] LABS: Anisocytosis SLIGHT = 6-15 cells (100X) (0-5/hpf); Band 6 % (5-11); Hemoglobin 7.3 g/dL (14.0-18.0); Lymphocytes 21 % (21-51); MDiff Complete? YES; Mean Corpuscular HGB CONC 29.6 g/dL (32.0-36.0); Mean Corpuscular Hemoglobin 24.2 pg (27.0-31.0); Mean Corpuscular Volume 81.9 fL (78.0-98.0); Mean Platelet Volume 7.6 fL (7.4-10.4); Monocytes 7 % (0-10); Neutrophil 65 % (42-75); Ovalocytes SLIGHT = 2-5 cells (100X) (0-1/hpf); Platelet Count 413 thou/uL (130-400); RBC Distribution Width 14.6 % (11.5-14.5); Red Blood Cell (RBC) Count 3.01 mill/uL (4.70-6.10); White Blood Cell (WBC) Count 7.9 thou/uL (4.8-10.8)
--- NOTE | 2020-04-09 06:37 | PDOC.FM ---
- Subjective Subjective: Resting after procedure this morning. States he has no complaints and is not tired or short of breath, although he is visibly short of breath. When asked why he came to the hospital he was unsure and stated he did not know. - Objective MAR Reviewed: Yes Vital Signs & Weight: Vital Signs (12 hours) Temp Pulse Resp BP Pulse Ox 04/09/20 03:18 99.3 F 78 17 146/71 H 93 L 04/08/20 23:43 99.5 F 74 18 134/62 97 04/08/20 21:40 94 L 04/08/20 21:10 93 L 04/08/20 20:09 98.5 F 76 22 H 124/74 93 L Weight Weight 84.368 kg I&O: 04/07/20 04/08/20 04/09/20 06:59 06:59 06:59 Intake Total 250 Output Total 0 Balance 250 Result Diagrams: 04/09/20 04:09 04/09/20 04:09 Phys Exam - Physical Examination Constitutional: NAD Ill appearing HEENT: moist MMs Neck: supple, full ROM Respiratory: no wheezing, no rales CTA on L, no breath sounds audible on right. Cardiovascular: RRR, no significant murmur Gastrointestinal: soft, no distention Musculoskeletal: no edema Neurological: non-focal, moves all 4 limbs Psychiatric: A&O x 3 Skin: no rash Dx/Plan (1) Type II diabetes mellitus Status: Acute (2) Acute respiratory failure with hypoxia Code(s): J96.01 - ACUTE RESPIRATORY FAILURE WITH HYPOXIA Status: Acute (3) Pleural effusion Code(s): J90 - PLEURAL EFFUSION, NOT ELSEWHERE CLASSIFIED Status: Acute (4) ESRD (end stage renal disease) on dialysis Code(s): N18.6 - END STAGE RENAL DISEASE; Z99.2 - DEPENDENCE ON RENAL DIALYSIS Status: Chronic (5) Hypertension Code(s): I10 - ESSENTIAL (PRIMARY) HYPERTENSION Status: Chronic - Plan Plan: Acute hypoxic respiratory failure 2/2 R pleural effusion - CXR and CTA with R massive pleural effusion with complete R lung collapse and L midline shift - Diagnostic and therapeutic thoracentesis performed this morning. LDH, protein , cytology, Gram stain and culture of thoracentesis fluid - Dark, old bloody fluid was obtained and was difficult to aspirate. Patient may need chest tube. Will consult CV Surg. - will obtain records from [facility]. Patient states he does not know what the result of his last thoracentesis was. Syncope - suspect orthostatic hypotension vs symptomatic anemia - CT head negative - Echo ordered - Will monitor on telemetry Symptomatic anemia - type and cross with transfusion of 1u pRBC this morning. Elevated D-dimer - CTA negative for PE - likely from underlying condition conditions, including ESRD ESRD on HD - T//Tue Dialysis - Will consult nephro in AM, known to Dr. Gavin BLANCASDMII - Hyperglycemic protocol, ACHS - Unsure of home insulin dose, will clarify with and restart home insulin - Mild SS HTN - orthostatic syncope at presentation - will hold home BP meds and monitor - orthostatic vitals Possible history of CHF - documented history but patient unaware - possibly contributing to pleural effusion - BNP mildly elevated at 134 - Will obtain Echo, Strict I's and O's, cont to monitor PCP: [facility] [place] Code: Full Diet: Renal, NPO at [place] IVF: SL VTE: SCDs Disposition/LOS: Admit to tele inpt, anticipapte LOS >48rs. Addendum - Attending - Attending Attestation Date/Time: 04/09/20 1016 I personally evaluated the patient and discussed the management with Dr. Calderon. I agree with the History, Examination, Assessment and Plan documented above with any addition or exceptions noted below. Patient stable, still having some increased respiratory effort. Suspect that due to midline shift and the presence of such a large volume of pleural fluid that he will need tube thoracostomy with CV surgery and possible further procedures/exploration. Will consult them this morning. Transfusing 1 unit PRBC this morning for his anemia. Awaiting records from [facility] regarding previous fluid evaluation.
--- NOTE | 2020-04-09 07:51 | PDOC.BPN ---
- Brief Progress Note Brief thoracentesis note. I was called d/t massive effusion a/w syncope. Pulmonology recommended thoracentesis but were unable to proceed until . Upon review no evidence of overt coagulopathy and the patient was obviously mildly dyspneic and fatigued on exam. Decision was made to perform diag/ther thora. Consent obtained. Timeout performed. With usual sono-guided technique only 250 cc of dark, old thick appearing blood was noted. Despite repositioning of the catheter unable to withdraw additional fluid. On ultrasound there were thin septae and it appeared echogenic. Formal procedure note to follow. Would recommend repeat with IR after discussion with pulmonology. He may require tube thoracostomy. Fluid studies sent.
--- NOTE | 2020-04-09 07:59 | PDOC.THORA ---
Thoracentesis Procedure Note - Procedure Date: 04/09/20 Time: 07:40 - PreProcedure Diagnosis: Acute hypoxic respiratory failure 2/2 massive R-sided pleural effusion with Left midline shift. - PostProcedure Diagnosis: Same as above - Anesthesia Anesthesia: 1% Lidocaine without epinephrine (with epinephrine) - Description Patient tolerated procedure: no complications Procedure in Details: Diagnostic and Therapeutic Thoracentesis Procedure Note INDICATION: Acute hypoxic respiratory failure 2/2 massive Right-sided pleural effusion RESIDENT: Baljit/Eliceo/Rk ATTENDING PHYSICIAN: Dr. Agustin, present throughout entirety of procedure CONSENT: Consent was obtained from patient prior to the procedure. Indications, risks, and benefits were explained at length. PROCEDURE SUMMARY: A time out was performed and the chest x-ray and CTA chest were reviewed, the appropriate side was confirmed and marked. Hands were washed immediately prior to the procedure. Surgical cap, mask and sterile gloves were worn throughout the procedure. The patient was prepped and draped in a sterile manner using chlorhexidine scrub after the appropriate level was percussed and confirmed by ultrasound. Ultrasound revealed multiple areas of loculated fluid throughout the right hemithorax. 1% lidocaine with epinephrine was used to anesthesize the skin, subcutaneous tissue, superior aspect of the rib periosteum and parietal pleura. A finder needle was then introduced over the superior aspect of the rib to locate the pleural fluid; dark, red-colored fluid was aspirated at a depth of approximately 4 cm. A 11-blade scalpel was used to maryjo the skin at the insertion site. The [id number] needle was then introduced through the skin incision into the pleural space using negative aspiration pressure and the red colometric indicator to confirm appropriate positioning of the needle. The thoracentesis catheter was then threaded without difficulty. Approximately 250 ml of dark, red-colored, old blood appearing fluid was removed without difficulty using vacuum canister. No further fluid was removed with catheter repositioning. The catheter was then removed. No immediate complications were noted during the procedure. The fluid will be sent for studies. Estimated blood loss was minimal. Pending studies, patient may benefit from surgical intervention with chest tube vs IR repeat thoracentesis for further therapeutic benefit. Addendum - Attending - Attending Attestation Date/Time: 04/11/20 1432 I was present for the entire procedure.
[2020-04-09] MEDS: prednisoLONE 1% Ophth Susp 5 ml Bottle EA EYE SCH (08:35)
[2020-04-09] MEDS: Calcium Acetate 667 MG CAP PO SCH ×3 (08:37→18:42)
[2020-04-09] MEDS ORDERED: Prevnar 13-Val Conj/PF 0.5 ML SYRINGE IM ONE (09:00)
[2020-04-09 11:05] LABS: RBC Count-Automated (BF) 96833 /cu.mm; WBC/Nucleated-Auto (BF) 5922 uL
[2020-04-09 11:06] LABS: Body Fluid Source Pleural Fluid; Clarity Cloudy/Turbid (Clear); Tube # 3
[2020-04-09 11:07] LABS: BF Color Red
[2020-04-09 11:12] LABS: BF Segmented Neutrophils 94 %; Cell Count Non Hematic 5 %; Lymphocytes 1 %
--- NOTE | 2020-04-09 14:05 | RAD ---
EXAM: Single view of the chest HISTORY: Status post thoracocentesis COMPARISON: 04/08/2020 FINDINGS: Single view of the chest shows a normal sized cardiomediastinal silhouette. No pleural effu ling is seen on the left. There is still complete opacification of the right thorax. No pneumothorax is seen. The bones are unremarkable. IMPRESSION: Continued opacification of the right thorax.
[2020-04-09] MEDS ORDERED: Lidocaine 1% (PF) 30 ML VIAL ONE (17:37)
--- NOTE | 2020-04-09 18:39 | CON ---
DATE OF CONSULTATION: 04/09/2020 CONSULTING PHYSICIAN: Dr. Dennis. REASON FOR CONSULTATION: End-stage renal disease evaluation. REASON FOR ADMISSION: Syncope. HISTORY OF PRESENT ILLNESS: This is a 59-year-old male with history of end-stage renal disease, type 2 diabetes, CHF, hypertension, came to the hospital with syncopal episode and was found to have pleural effusion and status post tap. He gets dialysis on Tuesday, , and Tuesday. Nephrology consulted for arranging maintenance hemodialysis. No fever or chills. PAST MEDICAL HISTORY: Positive for CVA, CHF, hypertension, type 2 diabetes, end-stage renal disease. PAST SURGICAL HISTORY: AV graft placement. HOME MEDICATIONS: Reviewed. ALLERGIES: NO KNOWN DRUG ALLERGIES. SOCIAL HISTORY: No smoking, alcohol, or drugs. FAMILY HISTORY: No history of kidney disease. REVIEW OF SYSTEMS: The following complete review of systems was negative, unless otherwise mentioned in the HPI or below: Constitutional: Weight loss or gain, ability to conduct usual activities. Skin: Rash, itching. Eyes: Double vision, pain. ENT/Mouth: Nose bleeding, neck stiffness, pain, tenderness. Cardiovascular: Palpitations, dyspnea on exertion, orthopnea. Respiratory: Shortness of breath, wheezing, cough, hemoptysis, fever or night sweats. Gastrointestinal: Poor appetite, abdominal pain, heartburn, nausea, vomiting, constipation, or diarrhea. Genitourinary: Urgency, frequency, dysuria, nocturia. Musculoskeletal: Pain, swelling. Neurologic/Psychiatric: Anxiety, depression. Allergy/Immunologic: Skin rash, bleeding tendency. PHYSICAL EXAMINATION: GENERAL: This is a well-built male, in no apparent distress. VITAL SIGNS: Temperature 99.3, pulse 74, respiratory rate 20, blood pressure 142/79. HEENT: Atraumatic and normocephalic. Oral mucosa is moist. NECK: Supple. CV: S1 and S2 heard. Rate and rhythm regular. RESPIRATORY: Clear. GI: Abdomen is soft. MUSCULOSKELETAL: No tenderness Dermatologic: No skin rash. NEUROLOGIC: Alert and awake. PSYCHIATRIC: Normal mood and affect. LABORATORY DATA: Hemoglobin 7.3, potassium 3.9, BUN is 29, creatinine 6.08. ASSESSMENT AND PLAN: 1. End-stage renal disease, continue on hemodialysis as tolerated. 2. . 3. Hypertension. 4. Anemia of chronic disease. 5. Hypoalbuminemia. 6. Plan to continue dialysis TTS as tolerated. Dialysis nurses are aware and were notified. We will follow. Thank you for the consult. Job ID: [id number]
--- NOTE | 2020-04-09 18:56 | RAD ---
PORTABLE CHEST: 04/09/20 HISTORY: Chest tube insertion. COMPARISON: Earlier exam the same day. A right sided chest tube has been placed. The right lung still remains opa cified. The left lung is clear. IMPRESSION: Interval placement of right sided chest tube. POS: RENATE
[2020-04-09 19:00] LABS: RBC Count-Automated (BF) 150085 /cu.mm; WBC/Nucleated-Auto (BF) 9176 uL
[2020-04-09 19:17] LABS: BF Color Brown; Body Fluid Source Pleural Fluid; Clarity Cloudy/Turbid (Clear); Tube # EDTA
[2020-04-09 19:19] LABS: BF Segmented Neutrophils 75 %; Cell Count Non Hematic 22 %; Lymphocytes 3 %
[2020-04-09] MEDS: Simvastatin 40 MG TAB PO SCH (21:41)
--- NOTE | 2020-04-09 21:46 | OP ---
DATE OF PROCEDURE: 04/09/2020 PROCEDURE PERFORMED: 20-Tamazight right tube thoracostomy. PREOPERATIVE DIAGNOSIS: Right pleural effusion. POSTOPERATIVE DIAGNOSIS: Right pleural effusion. ANESTHESIA: 1% lidocaine, local anesthesia. INDICATIONS: The patient is a chronically ill 59-year-old man with months' worth of progressive shortness of breath. When he presented with syncopal episodes after dialysis, he was found to have an opacified right hemithorax with poor aeration of the atelectatic right lung. A chest tube is now being placed to facilitate drainage of the chest to allow for imaging that will be easier to interpret and perhaps re-expansion of the lung. FINDINGS: About 2-1/2 L of bloody fluid evacuated over the course of about an hour with scant change in the appearance of his hemithorax other than more typical configuration of the trachea and its bifurcation compared to preprocedure. NARRATIVE REPORT: After informed consent was obtained and the patient's x-rays were reviewed and chest was percussed, his right chest was prepped and draped in sterile fashion. 1% lidocaine was used to infiltrate the skin and subcutaneous tissues at the level of the xiphoid a little lateral to the nipple line. When adequate level of anesthesia had been achieved, a skin maryjo was made with a knife blade in the Thal-Quick kit. Bleeding was controlled with direct pressure, and then additional lidocaine was infiltrated along the superior rib margin, angled slightly posteriorly from the skin incision. The needle was advanced until pleural fluid was aspirated. It was then withdrawn slightly, and a bolus of lidocaine was infiltrated into the intercostal space. A large-bore needle was then used through that same incision to aspirate pleural fluid, and then by the Seldinger technique, a guidewire was placed through the needle. The needle was removed, tract serially dilated, and then a 20-Tamazight thoracostomy catheter was placed. The wire was removed, and connectors were affixed. About 100 mL or so of pleural fluid was collected in 3 sterile collection cups to be sent for laboratory, microbiologic, and cytologic studies. The tube was then connected to close suction drainage, secured to the skin with suture and dressed. The patient initially had about 1200 mL of bloody drainage, and then over the course of an hour, similar amount was drained. Postprocedure film done after about 2-1/2 L of fluid drain, showed a little bit of shift in the mediastinum with the right mainstem taking a more typical rightward but still no air seen in the bronchial tree beyond the mainstem, and the hemithorax was still significantly opacified, although the chest tube could be identified. Job ID: [id number]
--- NOTE | 2020-04-09 22:42 | CON ---
DATE OF CONSULTATION: HISTORY OF PRESENT ILLNESS: Sarthak Thapa is a 59-year-old gentleman, who is apparently legally . Apparently, he is a dialysis patient and presented to the hospital with a syncopal episode. X-ray shows massive pleural effusion. There is no fever or chills. Difficult to get additional information on the history, but past medical history includes previous CVA, left-sided weakness, CHF, thyroid mass, hypertension, diabetes, and dialysis. Previous surgeries, access AV graft. SOCIAL HISTORY: Smoking, quit 10 years ago, pack a day. Alcohol, none. CURRENT MEDICATIONS: From home; 1. Zocor 40. 2. Procardia 60. 3. Cozaar 50. 4. Insulin. 5. Coreg 37.5. ALLERGIES: NONE. REVIEW OF SYSTEMS: Ten-point negative. PHYSICAL EXAMINATION: VITAL SIGNS: Temperature 97, pulse 76, respirations 20, saturation 100% on 2 L, and blood pressure 158/69. CHEST: Revealed decreased breath sounds right lung. CARDIAC: Normal S1 and S2. No gallops. ABDOMEN: No masses. LABORATORY DATA: White count 7000, H and H 7 and 24, and platelet count 413. Lytes are normal. Creatinine 6 and BUN 28. X-ray shows massive pleural effusion post attempted thoracentesis on the right side. Thoracentesis was attempted. Apparently, he sounds like it was bloody. Protein was 6.7 is an exudate. IMPRESSION AND PLAN: Right bloody pleural effusion post thoracentesis by primary care physician. Still has significant pleural effusion, chronic renal failure encephalopathy, diabetes, and legally blind. He has a chest tube inserted. He still got a large amount of fluid. It is unclear why they are unable to get additional procedure or additional fluid. I discussed with CV Surgery regarding the need to put a chest tube, if the lung does not expand. This concern about an endobronchial disease at that time. We will consider doing a diagnostic bronchoscopy. Pulmonary will follow. Consultation note, 70 minutes, 50% direct patient care. Job ID: [id number]
[2020-04-09] MEDS ORDERED: Senokot S 8.6-50 MG TAB PO PRN (23:15)
[2020-04-09] MEDS ORDERED: traMADol HCl 50 MG TAB PO SCH (23:30)
--- NOTE | 2020-04-10 00:28 | CON ---
DATE OF CONSULTATION: 04/09/2020 REQUESTING PHYSICIAN: Dr. Calderon. CHIEF COMPLAINT: Syncope. HISTORY OF PRESENT ILLNESS: The patient is a 59-year-old man with diabetes and end-stage renal disease, who is legally blind and has some residual left-sided motor deficits from previous strokes. The patient apparently had syncope associated with hypotension while at dialysis. He was given IV fluid, and his blood pressures returned to baseline, and he was sent home. However, he had orthostatic symptoms and another syncopal episode while getting off the bus, and he was transported by EMS to the [place] and from there to here. Apparently, he had a similar brief episode a few days ago, but otherwise has not had any recent changes in his baseline chronic poor health. PAST MEDICAL HISTORY: As above. MEDICATIONS: 1. Aspirin. 2. Insulin. 3. Cozaar. 4. Coreg. 5. Procardia XL. 6. Zocor. 7. PhosLo. 8. P.r.n. Imodium. ALLERGIES: DENIES ANY MEDICAL ALLERGIES. SOCIAL HISTORY: The patient quit smoking about 25 years ago. REVIEW OF SYSTEMS: Positive for about a month's worth of progressive shortness of breath. PHYSICAL EXAMINATION: GENERAL: He is a chronically ill appearing black man. VITAL SIGNS: In the emergency room in [place], heart rate was 77, blood pressure 123/69, temperature 97.7, room air O2 saturations were 99%. Currently, his heart rate 76, blood pressure 158/69, temperature is 97.8. LUNGS: He has fairly clear breath sounds on the left. Absent breath sounds on the right. He has normal tympany to percussion on the left. He is dull to percussion throughout the chest on the right side. ABDOMEN: Moderately obese, soft, and nontender. DIAGNOSTIC AND LABORATORY DATA: His chest x-ray shows complete opacification of the right chest with a small amount of rightward shift of the mediastinum. The right mainstem bronchus is angling almost straight cannot see an aeration in the bronchi beyond the mainstem bronchus on the right side. RECOMMENDATIONS: I find this series of x-rays very worrisome for resorptive atelectasis with an effusion that has since developed. The large amount of fluid and the atelectatic lung on CT scan make it fairly difficult to appreciate the soft-tissue anatomy. Discussed with Dr. Torres that drainage of fluid from the chest may facilitate imaging that is easier to interpret to guide the next steps rather than going straight to bronchoscopy. I will place a chest tube at the bedside. Job ID: [id number]
--- NOTE | 2020-04-10 06:32 | PDOC.FM ---
- Subjective Subjective: Doing well this morning. Denies pain this morning. Had large bowel movement last night that required nursing assistance for disimpaction and is now having diarrhea. - Objective MAR Reviewed: Yes Vital Signs & Weight: Vital Signs (12 hours) Temp Pulse Resp BP Pulse Ox 04/10/20 03:33 97.5 F L 75 15 172/76 H 98 04/10/20 00:40 100 04/09/20 23:50 98.4 F 87 15 188/84 H 98 04/09/20 20:02 98.0 F 81 18 149/72 H 100 Weight Weight 84.368 kg I&O: 04/08/20 04/09/20 04/10/20 06:59 06:59 06:59 Intake Total 250 360 Output Total 0 200 Balance 250 160 Result Diagrams: 04/10/20 06:55 04/09/20 04:09 Phys Exam - Physical Examination Constitutional: NAD HEENT: moist MMs Neck: supple, full ROM Respiratory: no wheezing, no rales, no rhonchi Diminished breath sounds on the right. Cardiovascular: RRR, no significant murmur, no rub Gastrointestinal: soft, non-tender Musculoskeletal: no edema, pulses present Neurological: non-focal, moves all 4 limbs Psychiatric: normal affect Skin: no rash, normal turgor Dx/Plan (1) Type II diabetes mellitus Status: Acute (2) Acute respiratory failure with hypoxia Code(s): J96.01 - ACUTE RESPIRATORY FAILURE WITH HYPOXIA Status: Acute (3) Pleural effusion Code(s): J90 - PLEURAL EFFUSION, NOT ELSEWHERE CLASSIFIED Status: Acute (4) ESRD (end stage renal disease) on dialysis Code(s): N18.6 - END STAGE RENAL DISEASE; Z99.2 - DEPENDENCE ON RENAL DIALYSIS Status: Chronic (5) Hypertension Code(s): I10 - ESSENTIAL (PRIMARY) HYPERTENSION Status: Chronic - Plan Plan: Acute hypoxic respiratory failure 2/2 R pleural effusion - CXR and CTA with R massive pleural effusion with complete R lung collapse and L midline shift - s/p tube thoracostomy 04/09. -2.5L dark fluid without significant expansion of R lung. - Pulm consulted, appreciate recs. May undergo bronchoscopy. Symptomatic anemia - type and cross with transfusion of 1u pRBC 04/09 - H/H pending this morning. ESRD on HD - T//Sat Dialysis - Nephro consulted, appreciate recs. IDDMII - Hyperglycemic protocol, ACHS - Restarted home meds. HTN - initially orthostatic, however is now hypertensive. Will resume home medications. Possible history of CHF - Strict I's and O's, cont to monitor - ECHO showed EF 55-60% Syncope, resolved Elevated D-dimer - CTA negative for PE. likely from underlying condition conditions, including ESRD PCP: GIULIANA [place] Code: Full Diet: Renal, NPO at [place] IVF: SL VTE: SCDs Disposition/LOS: Admit to tele inpt, anticipapte LOS >48rs. Addendum - Attending - Attending Attestation Date/Time: 04/10/20 8582 I personally evaluated the patient and discussed the management with Dr. Calderon. I agree with the History, Examination, Assessment and Plan documented above with any addition or exceptions noted below. Patient continues to drain exudative material despite chest tube placement. CV surgery and Pulm on board. Awaiting their recs. Patient overall stable at current time from a respiratory standpoint.
[2020-04-10 07:37] LABS: #Eosinphils 0.2 thou/uL (0.0-0.7); #Lymphocytes 1.3 thou/uL (1.20-3.40); #Monocytes 1.2 thou/uL (0.11-0.59); #Neutrophils 6.9 thou/uL (1.40-6.50); %Basophils 0.1 % (0.0-1.0); %Eosinophils 1.9 % (0.0-10.0); %Lymphocytes 13.6 % (21.0-51.0); %Monocytes 12.5 % (0.0-10.0); Hemoglobin 8.5 g/dL (14.0-18.0); Mean Corpuscular HGB CONC 30.4 g/dL (32.0-36.0); Mean Corpuscular Hemoglobin 24.9 pg (27.0-31.0); Platelet Count 428 thou/uL (130-400); Red Blood Cell (RBC) Count 3.41 mill/uL (4.70-6.10); White Blood Cell (WBC) Count 9.5 thou/uL (4.8-10.8)
--- NOTE | 2020-04-10 07:43 | RAD ---
EXAM: Single view of the chest HISTORY: Right pleural effusion status post chest tube placement COMPARISON: 04/09/2020 FINDINGS: Single view of the chest shows a normal sized cardiomediastinal silhouette. There is near complete opacification of the right thorax. There is a right-sided chest tube. Minimal aeration of the right lung is seen along the hilar region. No left pleural effusion is seen. The bones are unrem arkable. IMPRESSION: Large right pleural effusion
[2020-04-10] MEDS: Calcium Acetate 667 MG CAP PO SCH ×3 (08:09→17:02)
[2020-04-10] MEDS: NIFEdipine XL 60 MG TAB PO SCH (08:09)
[2020-04-10] MEDS: Carvedilol 25 MG TAB PO SCH ×2 (08:09→20:29)
[2020-04-10] MEDS: HumuLIN 70/30 (300 UNITS/3 ML VIAL) SC SCH (08:10)
[2020-04-10] MEDS: Losartan 25 MG TAB PO SCH (08:10)
[2020-04-10] MEDS: prednisoLONE 1% Ophth Susp 5 ml Bottle EA EYE SCH (08:14)
[2020-04-10 08:52] LABS: Hypochromia MODERATE=16-30 cells (100X) (0-5/hpf); MDiff Complete? YES; Ovalocytes MODERATE= 6-15 cells (100X) (0-1/hpf); Platelet Morphology Comment Appears Increased; Polychromasia SLIGHT = 2-3 cells (100X) (0-2/hpf)
--- NOTE | 2020-04-10 10:13 | CT ---
CHEST CT WITH CONTRAST: HISTORY: Large right-sided pleural effusion noticed on previous CT. Interval placement of a large bore chest t ube. COMPARISON: 04/08/2020. FINDINGS: Mediastinum: No mass, lymphadenopathy or hematoma. Heart: Normal heart size. No significant pericardial fluid. Aorta: Atherosclerosis. No aneurysm, dissection or periaortic fat stranding. Trachea and central bronchi: Patent. Right hemithorax: Interval placement of a large bore right-sided chest tube. There is evidence of per ipherally enhancing fluid with probable areas of loculation. There appears to be air attenuation within the pleural space. The right lung appears to be severely atelectatic and predominantly noted i n the central portion of the right hemithorax. There appear to be nonspecific areas of linear density within the pleural space which may represent septae in the pleural effusion. Pleural effusion has an attenuation coefficient of 40 Hounsfield units suggesting complex fluid. Left hemithorax: Minimal atelectatic changes. No suspicious masses or consolidation. Pneumothorax: No left-sided pneumothorax. Air in the right pleural space is presumed to be iatrogenic . Incidentals: Small air-fluid level thoracic esophagus. Upper abdominal structures do not demonstrate any acute abnormality. Previous vertebroplasty change at the T12 level. IMPRESSION: 1. Interval placement of a large bore right-sided chest tube. There is persistent complex fluid in th e right pleural space. There is peripheral enhancement of the pleural margin. Complex nature of the fluid does raise the possibility of an infected pleural effusion/empyema. 2. Marked atelectasis of the right lung with medial collapse of the right upper lobe, middle lobe and right lower lobe. Transcribed Date/Time: 04/10/2020 1:10 PM
--- NOTE | 2020-04-10 10:24 | PRG ---
DATE OF SERVICE: 04/10/2020 SUBJECTIVE: Sarthak Thapa is status post chest tube insertion. 2.5 L of bloody effusion was removed as noted. OBJECTIVE: VITAL SIGNS: His temperature 98, pulse 79, saturations are 98% on 3 L, respirations 18, and blood pressure . CHEST: Decreased breath sounds, right lung. CARDIAC: Normal S1, S2. No gallops. ABDOMEN: No masses. IMAGING: His x-ray still shows a very impressive effusion, some of it appears maybe loculated. LABORATORY DATA: White count 9000, H and H are 8 and 25. ASSESSMENT: Bloody effusion, etiology unclear, status post chest tube insertion what appears to be a loculated effusion. PLAN: The patient is going to require thoracoscopy and appropriate intervention. Meantime, I have started neb treatments and empiric antibiotics. Pulmonary will follow. Job ID: [id number]
[2020-04-10] MEDS ORDERED: cefTRIAXone\\ROCEPHIN 1 GM in Sodium Chloride 0.9% 100 ML IVPB SCH (11:00)
--- NOTE | 2020-04-10 12:33 | PRG ---
DATE OF SERVICE: 04/10/2020 SUBJECTIVE: Patient was seen and examined at bedside and overnight events noted. Patient denies any shortness of breath or chest pain or palpitation. No history of nausea or vomiting or diarrhea or fever or chills or cramps. OBJECTIVE: GENERAL: This is well-built male, in no apparent distress. VITAL SIGNS: Temperature 98.1, heart rate 70, respiratory rate 18, and blood pressure 153/74. HEENT: Atraumatic, normocephalic. Oral mucosa is moist. NECK: Supple. CARDIOVASCULAR: S1, S2 heard. Rate and rhythm regular. RESPIRATORY: Clear to auscultation. GASTROINTESTINAL: Abdomen is soft. MUSCULOSKELETAL: No tenderness. No edema. DERMATOLOGIC: No skin rash. NEUROLOGIC: Alert and awake and oriented x3. No focal neurologic deficits. Moving all the extremities. PSYCHIATRIC: Mood and affect normal. LABORATORY DATA: Not done today. ASSESSMENT AND PLAN: 1. End-stage renal disease, continue dialysis TTS, seen during dialysis. 2. Hypertension. 3. Anemia. 4. Hypoalbuminemia. 5. Continue dialysis as tolerated, Tuesday, , and Tuesday. Job ID: [id number]
[2020-04-10] MEDS ORDERED: Iopamidol-370 76% 500 ML 1 ML ONE (14:23)
[2020-04-10] MEDS: cefTRIAXone\\ROCEPHIN 1 GM in Sodium Chloride 0.9% 100 ML IVPB SCH (17:02)
[2020-04-10] MEDS: Simvastatin 40 MG TAB PO SCH (20:29)
[2020-04-11] MEDS: Carvedilol 25 MG TAB PO SCH ×2 (05:40→21:05)
[2020-04-11] MEDS ORDERED: Fentanyl 250 MCG/5 ML VIAL ONE (06:31)
[2020-04-11] MEDS ORDERED: Phenylephrine 10 MG/ML VIAL ONE (06:32)
--- NOTE | 2020-04-11 07:11 | PDOC.FM ---
- Subjective Subjective: Post-procedure. Intubated and sedated. - Objective MAR Reviewed: Yes Vital Signs & Weight: Vital Signs (12 hours) Temp Pulse Resp BP Pulse Ox 04/11/20 04:00 98.7 F 83 20 152/75 H 96 04/11/20 00:19 85 16 99 04/11/20 00:16 98 04/10/20 19:50 98 F 95 16 131/60 93 L Weight Weight 84.368 kg I&O: 04/10/20 04/11/20 04/12/20 06:59 06:59 06:59 Intake Total 360 Output Total 200 100 Balance 160 -100 Result Diagrams: 04/10/20 06:55 04/09/20 04:09 Phys Exam - Physical Examination Constitutional: NAD HEENT: moist MMs Neck: supple, full ROM Respiratory: no wheezing, no rales, no rhonchi Diminished breath sounds on right Cardiovascular: RRR, no significant murmur Gastrointestinal: soft Musculoskeletal: no edema, pulses present Neurological: non-focal Deviation from normal: Intubated and sedated Skin: no rash Dx/Plan (1) Type II diabetes mellitus Status: Acute (2) Acute respiratory failure with hypoxia Code(s): J96.01 - ACUTE RESPIRATORY FAILURE WITH HYPOXIA Status: Acute (3) Pleural effusion Code(s): J90 - PLEURAL EFFUSION, NOT ELSEWHERE CLASSIFIED Status: Acute (4) ESRD (end stage renal disease) on dialysis Code(s): N18.6 - END STAGE RENAL DISEASE; Z99.2 - DEPENDENCE ON RENAL DIALYSIS Status: Chronic (5) Hypertension Code(s): I10 - ESSENTIAL (PRIMARY) HYPERTENSION Status: Chronic - Plan Plan: Acute hypoxic respiratory failure 2/2 R pleural effusion - CXR and CTA with R massive pleural effusion with complete R lung collapse and L midline shift - s/p tube thoracostomy 04/09. -2.5L dark fluid - Pulm consulted, appreciate recs. Bronch performed 04/11/20. - During bronchoscopy patient had complications and required intubation (04/11) and he was transferred to the CCU. Will await Dr. Torres's recommendations. Symptomatic anemia - type and cross with transfusion of 1u pRBC 24 - H/H improved. ESRD on HD - T//Tue Dialysis - Nephro consulted, appreciate recs. IDDMII - Hyperglycemic protocol, ACHS - Restarted home meds. HTN - Resume home medications. Possible history of CHF - Strict I's and O's, cont to monitor - ECHO showed EF 55-60% Syncope, resolved Elevated D-dimer - CTA negative for PE. likely from underlying condition conditions, including ESRD PCP: GIULIANA [place] Code: Full Diet: Renal, NPO at [place] IVF: SL VTE: SCDs Intubated 04/11/20 Chest tube placement 04/09 Arterial line to right wrist 04/11 Disposition/LOS: Inpatient, critical care. Addendum - Attending - Attending Attestation Date/Time: 04/11/20 1016 I personally evaluated the patient and discussed the management with Dr. Calderon. I agree with the History, Examination, Assessment and Plan documented above with any addition or exceptions noted below.
--- NOTE | 2020-04-11 07:47 | RAD ---
EXAM: Single view of the chest HISTORY: Chest tube placement for pleural effusion COMPARISON: 04/10/2020 FINDINGS: Single view of the chest shows an enlarged but stable cardiomediastinal silhouette. Near c omplete opacification of the right thorax is again seen. A right-sided chest tube is again seen. There is air in the right thorax but this appears air within the pleural space rather than expanded l nisa. The bones are unremarkable. IMPRESSION: Large right pleural effusion.
[2020-04-11] MEDS ORDERED: Lidocaine 2% Jelly 5 ML TUBE ONE (07:50)
[2020-04-11] MEDS ORDERED: Bacitracin Zinc Ointment 30 gm TUBE ONE (07:52)
[2020-04-11] MEDS ORDERED: Albuterol Sulfate HFA (OR ONLY) ONE (08:28)
[2020-04-11] MEDS ORDERED: Promethazine HCl 25 MG/ML VIAL IM PRN (08:57)
[2020-04-11] MEDS ORDERED: HYDROcodone/Acetaminophen 5/325 mg Tablet PO PRN ×2 (08:57)
--- NOTE | 2020-04-11 09:37 | RAD ---
Exam: Chest one view HISTORY:Status post thoracotomy Comparison: 04/11/2020 FINDINGS: Lines and tubes: Stable endotracheal tube and right-sided chest tube. Cardiac silhouette:Stable enlarged cardiac silhouette. Aorta: Unremarkable Pulmonary vessels: Normal Costophrenic angles: Stable loculated fluid in the right hemithorax. LUNGS: Stable lucencies in the right lung compatible with cavitary lesions/air in the pleural space. Stable parenchymal consolidation. Pneumothorax: Stable right-sided pneumothorax. Osseous abnormalities: None IMPRESSION: No significant interval change.
[2020-04-11 09:40] LABS: CO2 Tension 53.9 mmHg (35.0-45.0); Calcium, Ionized (arterial) 1.11 mmol/L (1.12-1.30); Carboxyhemoglobin (COHb) 0.6 gm% (0.0-3.0); Hemoglobin (Hb) 8.6 g/dL (14.0-18.0); O2 Tension (PaO2), arterial 75.2 mmHg (80.0-100.0); Potassium - ABG Lab 4.76 mmol/L (3.70-5.30); pH, Arterial 7.36 (7.35-7.45)
[2020-04-11 09:44] LABS: ALV-art Gradient 142.625 (0-20); Puncture Site ALINE
[2020-04-11] MEDS ORDERED: Propofol 1,000 MG/100 ML VIAL IV ONE (09:56)
[2020-04-11] MEDS: methylPREDNISolone Sod Succ 40 MG VIAL IVP SCH ×2 (10:06→21:06)
[2020-04-11] MEDS ORDERED: fentaNYL Citrate/PF 2,000 MCG in Sodium Chloride 0.9% 60 ML IV SCH (10:11)
[2020-04-11] MEDS ORDERED: Propofol BOLUS 1,000 MG/100 ML VIAL IV PRN (10:11)
[2020-04-11] MEDS ORDERED: Lorazepam 2 MG/ML VIAL SLOW IVP PRN (10:11)
[2020-04-11] MEDS ORDERED: DISCONTINUE PREVIOUS NARCOTIC PAIN MEDICATIONS AND BENZODIAZEPINES FS SCH (10:11)
[2020-04-11] MEDS ORDERED: Fentanyl BOLUS 250 ML IVPB PRN (10:11)
[2020-04-11] MEDS ORDERED: Rocuronium Bromide 10 MG/ML (10ML VIAL) ONE (10:32)
[2020-04-11] MEDS ORDERED: Lidocaine 1% PF 5 ML VIAL ONE (10:32)
[2020-04-11] MEDS ORDERED: Glycopyrrolate 0.2 MG/ML 5 ML SYRINGE ONE (10:32)
[2020-04-11] MEDS ORDERED: EPINEPHrine 1 MG/10 ML Abboject SYRINGE ONE (10:32)
[2020-04-11] MEDS ORDERED: PROPOFOL 200 MG/20 ML VIAL ONE (10:32)
[2020-04-11] MEDS ORDERED: Dexamethasone 20 MG/5 ML VIAL ONE (10:32)
[2020-04-11] MEDS: NIFEdipine XL 60 MG TAB PO SCH (10:50)
[2020-04-11] MEDS: Losartan 25 MG TAB PO SCH (10:50)
[2020-04-11] MEDS: Calcium Acetate 667 MG CAP PO SCH ×3 (10:50→17:34)
[2020-04-11] MEDS: HumuLIN 70/30 (300 UNITS/3 ML VIAL) SC SCH (10:50)
--- NOTE | 2020-04-11 11:00 | RAD ---
PORTABLE CHEST: DATE: 04/11/2020. PROVIDED CLINICAL HISTORY: Pneumothorax. FINDINGS: Comparison is made with the study dated 04/11/2020, time 4:50 a.m. Endotracheal tube is now present, the tip of which projects in the region of the thoracic inlet. There is a persistent right-sided debi st tube and opacification of the majority of the right hemithorax with associated central lucency, pr esumably parenchymal, though not further localized. There is new left infrahilar airspace disease. The supine nature of the examination is not sensitive for detection of pneumothorax or pleural fluid, without evidence for such on the left. IMPRESSION: 1. Interval placement of endotracheal tube. 2. Similar appearance of the right hemithorax. 3. New left infrahilar airspace disease, aspiration, or pneumonia suspected. Followup is recommende d. POS: AMALIA
--- NOTE | 2020-04-11 11:55 | PRG ---
DATE OF SERVICE: 04/11/2020 SUBJECTIVE: The patient is seen and examined in ICU, remains intubated. OBJECTIVE: VITAL SIGNS: Temperature 98.7, pulse 68, respiratory rate 22, blood pressure 120/58. HEENT: Intubated. CV: S1 and S2 heard. RESPIRATORY: Clear. GI: Abdomen is soft. MUSCULOSKELETAL: 1+ edema. NEUROLOGIC: Intubated. LABORATORY DATA: Not done today. ASSESSMENT AND PLAN: 1. End-stage renal disease. Continue dialysis Tuesday, , and Tuesday as tolerated. 2. Hypertension. 3. Anemia. 4. Hypoalbuminemia. 5. Acute hypoxic respiratory failure. 6. Pleural effusion. Continue dialysis as tolerated Tuesday, , and Tuesday. Job ID: [id number]
[2020-04-11] MEDS: prednisoLONE 1% Ophth Susp 5 ml Bottle EA EYE SCH (13:18)
[2020-04-11] MEDS: Morphine 2 MG/ML SYRINGE SLOW IVP PRN (13:45)
[2020-04-11] MEDS: Propofol 1,000 MG/100 ML VIAL IV PRN ×2 (13:48→21:05)
--- NOTE | 2020-04-11 14:16 | PRG ---
DATE OF SERVICE: 04/11/2020 SUBJECTIVE: Sarthak Thapa is legally blind. Events as outlined. He went to the operating room today to have a thoracoscopy and associated procedure when apparently he had an episode of what sounds like hypertension, though I was told that he did not actually have asystole, but CPR was performed. His thoracoscopy was withheld. Dr. Meza did a bronchoscopy. Please read his note. He found there was some evidence of extensive compression. There was some concern about a mid lobe lesion, which he did some brushings and biopsy. He is now back in the ICU on the vent without any sedation, appears to be encephalopathic. PHYSICAL EXAMINATION: GENERAL: His sats are 98%, his pulse rate 80, respiratory rate 18. NEUROLOGIC: He is moving bilaterally all 4 extremities. CHEST: Bilateral rhonchi and crackles. CARDIAC: Sinus tach. ABDOMEN: Distended, soft. DIAGNOSTIC STUDIES: X-ray shows right chest tube in place, extensive pleural disease on the right side, left unremarkable. Blood sugar is 113. His blood gas, PO2 of 75, pCO2 of 53, pH 7.36. ASSESSMENT: 1. Status post intraoperative cardiac event hypertension, possibly asystolic. Cardiopulmonary resuscitation performed. 2. Chronic renal failure, on dialysis. 3. Legally blind. PLAN: I am concerned in my system anoxic injury. We will await biopsy of his bronchoscopy as well as pleural fluid cytology. He is not weanable at this stage. Continue supportive care. Dialysis per Nephrology. Neb treatments. Brief course of steroids. Prognosis is guarded. CRITICAL CARE TIME: One-half hour. Job ID: [id number]
--- NOTE | 2020-04-11 16:32 | OP ---
DATE OF PROCEDURE: 04/11/2020 PROCEDURES PERFORMED: Fiberoptic bronchoscopy with right middle lobe biopsy and right middle and upper lobe brushings; right femoral central line placement. PREOPERATIVE DIAGNOSIS: Opacified right hemithorax. POSTOPERATIVE DIAGNOSIS: Opacified right hemithorax. ANESTHESIA: General endotracheal anesthesia. INDICATION FOR PROCEDURE: The patient is a 59-year-old dialysis patient, who apparently about 6 months ago had a pleural effusion tapped. After a syncopal episode recently, he was noted to have an opacified right hemithorax with an inability to follow the air column much beyond the right mainstem bronchus. Placement of chest tube resulted in minimal changes in the chest x-ray appearance and no re-expansion of the lung and more clearly defined cutoff of air in the airway. He is now taken to the operating room for invasive evaluation. FINDINGS: Unable to intubate any of the segmental bronchi, the upper lobe with bulging consistent with extrinsic compression in the bronchus intermedius and beyond, there was cobblestoning of the bronchi, there was an area of prominence that cobblestoning in the middle lobe bronchus that was biopsied, and it is not feasible to pass the scope much beyond that level, although the orifices of the medial and lateral segments could be seen. They appeared to be obstructed. Similarly, it was not possible to pass the scope beyond the origin of the superior segment in the lower lobe. COMPLICATIONS: During the exchange of the single-lumen tube for double-lumen tube, the patient went intense bronchospasm that was difficult to break. It was associated with profound hypoxia and bradycardia, although successfully resuscitated. The planned thoracoscopy was abandoned. NARRATIVE REPORT: After informed consent was obtained, the patient was taken to the operating room, placed in supine position on the operating table. After the induction of general anesthesia, a fiberoptic bronchoscope was lubricated and inserted through a swivel device on #8 single-lumen endotracheal tube. There was anthracotic staining of the mucosa in the major airways, but no endobronchial masses seen at the level of the trachea or the main jonas. There was no obvious splaying of the main jonas. The right mainstem bronchus was intubated that staining and bit of friability were encountered, and upon intubation of the upper lobe, it was immediately obvious that there was extrinsic compression obscuring the segmental bronchi. With some manipulation, it was possible to see the opening of the anterior segment, but the apical and posterior segments were slit-like openings. Upon intubation of a bronchus intermedius, the friability became more apparent and there was cobblestoning of the mucosa. There was 1 excrescence protruding into the lumen of the middle lobe bronchus that almost resembled mucus adherent to the mucosa. Biopsy forceps ultimately were used to biopsy that, followed by cytology, brushings in the middle lobe and then with a separate brush, the upper lobe. While those brushes were brought to the room, the left-sided endobronchial tree was examined to at least the segmental bronchial level and there were no obvious endobronchial abnormalities on the left side. When the biopsies and brushings on the right side had been completed, the scope was withdrawn and his single-lumen endotracheal tube was removed and exchanged for a double-lumen tube. There was only a minimal amount of difficulty in that exchange, but when the tube within position, it was extremely difficult to bag the patient and his O2 sats began to drop. The tube was removed. He was difficult to bag. A #7.5 single-lumen tube was used to reintubate the patient using a GlideScope. Pharmacologic manipulations to break bronchospasm were used down the endotracheal tube, and he required pharmacologic support as he became hypotensive as well as profoundly hypoxic, although he never became bradycardic or lost rhythm. CPR was performed to help circulate the drugs, and in light of his marginal IV access, it was opted to place a femoral venous line. His right groin was prepped and draped in sterile fashion. With circulation of pressor agents, he had much more readily palpable femoral pulse. Just medial to that, the femoral vein was easily cannulated by the Seldinger technique. Line was placed. All 3 ports aspirated and flushed and the line was secured and dressed. Even after the initial breaking of his bronchospasm, he had recurrence of it associated with hypoxia, although his blood pressure remained much more stable, that was broken and when he stabilized, he was transported to the intensive care unit, intubated in stable but guarded condition. Job ID: [id number]
[2020-04-11] MEDS: cefTRIAXone\\ROCEPHIN 1 GM in Sodium Chloride 0.9% 100 ML IVPB SCH (17:54)
[2020-04-11] MEDS: Atorvastatin Calcium 20 MG TAB PO SCH (21:05)
[2020-04-12] MEDS: Propofol 1,000 MG/100 ML VIAL IV PRN ×4 (02:16→22:29)
[2020-04-12 04:42] LABS: #Monocytes 0.4 thou/uL (0.11-0.59); %Basophils 0.3 % (0.0-1.0); %Eosinophils 0.2 % (0.0-10.0); %Lymphocytes 9.8 % (21.0-51.0); %Monocytes 3.8 % (0.0-10.0); %Neutrophils 85.9 % (42.0-75.0); Hemoglobin 8.7 g/dL (14.0-18.0); Mean Corpuscular HGB CONC 30.4 g/dL (32.0-36.0); Mean Corpuscular Hemoglobin 24.4 pg (27.0-31.0); Mean Corpuscular Volume 80.1 fL (78.0-98.0); Mean Platelet Volume 7.9 fL (7.4-10.4); Platelet Count 425 thou/uL (130-400); RBC Distribution Width 15.6 % (11.5-14.5); Red Blood Cell (RBC) Count 3.56 mill/uL (4.70-6.10); White Blood Cell (WBC) Count 10.5 thou/uL (4.8-10.8)
[2020-04-12 05:05] LABS: Anion Gap 14 mmol/L (10-20); BUN (Urea Nitrogen) 34 mg/dL (8.4-25.7); Calc. Creatinine Clearance 15 mL/min (70-130); Calcium 8.8 mg/dL (7.8-10.44); Carbon Dioxide 26 mmol/L (22-29); Chloride 101 mmol/L (98-107); Estimated GFR-MDRD 11; Glucose 137 mg/dL (70-105); Potassium 6.2 mmol/L (3.5-5.1); Sodium 135 mmol/L (136-145)
[2020-04-12 05:45] LABS: Actual Bicarbonate (HCO3a) 26.9 mEq/L (22-28); Base Excess (BEa) 3.4 mEq/L (-2.0 to +3.0); CO2 Tension 36.3 mmHg (35.0-45.0); Calcium, Ionized (arterial) 1.08 mmol/L (1.12-1.30); Carboxyhemoglobin (COHb) 0.8 gm% (0.0-3.0); Hemoglobin (Hb) 9.5 g/dL (14.0-18.0); Potassium - ABG Lab 6.13 mmol/L (3.70-5.30); pH, Arterial 7.49 (7.35-7.45)
[2020-04-12 05:46] LABS: ALV-art Gradient 138.825 (0-20); Puncture Site RRA
--- NOTE | 2020-04-12 06:37 | PDOC.FM ---
- Subjective Subjective: Intubated and sedated. No overnight events reported by RN. - Objective MAR Reviewed: Yes Vital Signs & Weight: Vital Signs (12 hours) Temp Pulse Resp Pulse Ox 04/12/20 06:00 12 04/12/20 04:00 97.2 F L 12 04/12/20 02:54 56 L 04/12/20 02:00 12 04/12/20 01:32 56 L 12 100 04/12/20 01:30 56 L 04/12/20 00:00 96.8 F L 12 04/11/20 22:00 12 04/11/20 21:38 61 04/11/20 20:00 99.0 F 18 04/11/20 18:48 63 12 98 04/11/20 18:46 63 Weight Admit Weight 83.461 kg Weight 83.4 kg Most Recent Monitor Data Heart Rate from ECG 54 NIBP 171/85 NIBP BP-Mean 113 Respiration from ECG 12 SpO2 100 I&O: 04/10/20 04/11/20 04/12/20 06:59 06:59 06:59 Intake Total 360 1092 Output Total 200 250 250 Balance 160 -250 842 Result Diagrams: 04/12/20 04:25 04/12/20 04:25 Phys Exam - Physical Examination Constitutional: NAD HEENT: moist MMs Neck: no JVD, supple Respiratory: no wheezing, no rales, no rhonchi Reduced breath sounds on the R Cardiovascular: RRR, no significant murmur Gastrointestinal: soft, non-tender Musculoskeletal: no edema, pulses present Skin: no rash Dx/Plan (1) Type II diabetes mellitus Status: Acute (2) Acute respiratory failure with hypoxia Code(s): J96.01 - ACUTE RESPIRATORY FAILURE WITH HYPOXIA Status: Acute (3) Pleural effusion Code(s): J90 - PLEURAL EFFUSION, NOT ELSEWHERE CLASSIFIED Status: Acute (4) ESRD (end stage renal disease) on dialysis Code(s): N18.6 - END STAGE RENAL DISEASE; Z99.2 - DEPENDENCE ON RENAL DIALYSIS Status: Chronic (5) Hypertension Code(s): I10 - ESSENTIAL (PRIMARY) HYPERTENSION Status: Chronic - Plan Plan: Acute hypoxic respiratory failure 2/2 R pleural effusion - CXR and CTA with R massive pleural effusion with complete R lung collapse and L midline shift - s/p tube thoracostomy 04/09. -2.5L dark fluid - Pulm and CV surg consulted, appreciate recs. Bronch performed 04/11/20. - During bronchoscopy patient experienced significant bronchospasm with subsequent hypoxia and bradycardia and required intubation (04/11). - Biopsies and brushings were taken from R lung mass. - Will await pathology and CCU recs for extubation. Hyperkalemia - K of 6.2 this morning. - Due for dialysis today. ESRD on HD - T//Tue Dialysis - Nephro consulted, appreciate recs. IDDMII - Hyperglycemic protocol, ACHS - Restarted home meds. HTN - Resumed home medications. Possible history of CHF - Strict I's and O's, cont to monitor - ECHO showed EF 55-60% Syncope, resolved Elevated D-dimer - CTA negative for PE. likely from underlying condition conditions, including ESRD Symptomatic anemia - H/H improved. PCP: GIULIANA [place] Code: Full Diet: Renal, NPO at [place] IVF: SL VTE: SCDs Lines/Tubes: Intubated 04/11/20 Chest tube placement 04/09 Arterial line to right wrist 04/11 Central line R femoral 04/11 Disposition/LOS: Inpatient, critical care.
[2020-04-12] MEDS: Morphine 2 MG/ML SYRINGE SLOW IVP PRN ×2 (06:46→22:11)
[2020-04-12] MEDS: Losartan 25 MG TAB PO SCH (08:03)
[2020-04-12] MEDS: NIFEdipine XL 60 MG TAB PO SCH (08:03)
[2020-04-12] MEDS: Carvedilol 25 MG TAB PO SCH ×2 (08:04→20:12)
[2020-04-12] MEDS: Calcium Acetate 667 MG CAP PO SCH ×3 (08:05→16:34)
--- NOTE | 2020-04-12 08:30 | RAD ---
PORTABLE CHEST: INDICATION: Ventilator and CCU followup. COMPARISON: 04/11/2020. FINDINGS: Opacification of the right chest with a small amount of aerated lung centrally indicating a large rig ht effusion, some of which may be loculated, unchanged. The right chest tube is unchanged. Left remberto g is aerated. There is a new hazy infiltrate in the left lower lung field today. IMPRESSION: The right lung opacification is unchanged. Question new hazy infiltrate in the left lower lung today . POS: AGW
[2020-04-12] MEDS: HumuLIN 70/30 (300 UNITS/3 ML VIAL) SC SCH (09:07)
[2020-04-12] MEDS: prednisoLONE 1% Ophth Susp 5 ml Bottle EA EYE SCH (09:08)
[2020-04-12] MEDS: methylPREDNISolone Sod Succ 40 MG VIAL IVP SCH ×2 (09:31→21:04)
[2020-04-12] MEDS: HumaLOG 300 UNITS/3 ML VIAL SC PRN (10:45)
--- NOTE | 2020-04-12 13:04 | PRG ---
DATE OF SERVICE: 04/12/2020 SUBJECTIVE: The patient remains intubated. OBJECTIVE: VITAL SIGNS: Temperature 98.4, pulse 51, respiratory rate 20, and blood pressure 126/71. HEENT: Intubated. CARDIOVASCULAR: S1 and S2 heard. RESPIRATORY: Clear. GASTROINTESTINAL: Abdomen is soft. NEUROLOGICAL: Intubated. LABORATORY DATA: Potassium 6.2, BUN is 34, and creatinine is 6.3. ASSESSMENT AND PLAN: 1. End-stage renal disease. Dialysis today and then TTS as tolerated. 2. Hyperkalemia. Advised nurse to have dialysis today. 3. Hyponatremia. 4. Anemia of chronic disease. 5. Hypertension. 6. Acute hypoxic respiratory failure. 7. Pleural effusion. Continue dialysis as tolerated. Job ID: [id number]
--- NOTE | 2020-04-12 14:04 | PRG ---
DATE OF SERVICE: Please see the note from Dr. Barbara Calderon, for which, I agree. The patient was seen, evaluated, discussed, and examined with the residents by bedside. He is an unfortunate hemodialysis patient ended up having a huge right-sided pleural effusion that is bloody in nature and when getting bronchoscopied and ended up having to get intubated because of bronchospasm, is now in the ICU, intubated, although, stable currently. Has chest tube in, trying to figure out what is causing this if it is infectious in nature or possibly necrosis. He is getting dialysis today and otherwise, he is trying to supportive care otherwise. Job ID: [id number]
--- NOTE | 2020-04-12 14:52 | PRG ---
DATE OF SERVICE: 04/12/2020 SUBJECTIVE: The events leading to this point have been reviewed. The patient has end-stage renal disease and presented for thoracentesis several days ago. Unfortunately, fluid could not be aspirated, and chest tube was placed, again with incomplete evacuation. The patient was taken to the operating room yesterday and at bronchoscopy, was found to have extensive narrowing compression and obliteration of the airways throughout the right endobronchial tree. The underlying airways are described as "cobblestone." Biopsies, brushings, and washings were obtained. While converting from single-lumen to double-lumen tube, the patient became hypotensive and was described as extremely hard to ventilate. It sounds as though brief CPR was given, although there is no report that he was ever pulseless. The anticipated thoracoscopy and decortication were canceled, and the patient has been transferred to the intensive care unit. Overnight, the patient has been stable. With any reduction in sedation, the patient is extremely awake and sitting up in bed and trying to self extubate. Oxygen saturation has been adequate. There is a total of about a liter of old bloody fluid in the chest tube. The patient follows commands at this time. PHYSICAL EXAMINATION: VITAL SIGNS: Blood pressure 137/72, heart rate 54, and saturations 100%. GENERAL: He is intubated and has good spontaneous efforts. He will be placed onto dialysis at this time. He has no adenopathy. LUNGS: Showed decreased breath sounds in the right hemithorax. The chest tube has no leak. The chest tube output totals about a liter of dark bloody fluid. EXTREMITIES: He does not have significant edema. LABORATORY DATA: Chest x-ray shows endotracheal tube in good position. Chest tube is into the apex. There is central clearing suggesting that the patient has advanced volume loss in the airways with dense peripheral pleural rind and hydrofibrothorax. IMPRESSION: 1. Abnormal chest x-ray. The patient has a pleural effusion, which is bloody and loculated. With aspiration and chest tube drainage, the right lung remains densely atelectatic. At the time of bronchoscopy, there is airway obliteration and description of underlying cobblestoning. This would be quite suggestive of adenopathy due to sarcoidosis. I do not see that diagnosis has ever been made previously and biopsies are pending. I am not sure that even with aggressive decortication, we would ever get his right lung to be functional. He is ventilating adequately and ideally, I would pursue extubation; however, the patient is starting his dialysis treatment and we will observe overnight due to his tenuous nature. 2. End-stage renal disease, on maintenance hemodialysis. Etiology of his renal failure is not described. PLAN: We will continue him on his current ventilatory support including BiPAP trials and hopefully extubate tomorrow. I await his fluid cytology and biopsies. I am going to order serum angiotensin-converting enzyme level. As noted above, I do not think that even with aggressive decortication, we will ever be able to get his lung to fully expand, especially if there is evidence of mediastinal adenopathy and associated airway compression centrally. Critical care time, 35 minutes. Job ID: [id number]
[2020-04-12] MEDS: cefTRIAXone\\ROCEPHIN 1 GM in Sodium Chloride 0.9% 100 ML IVPB SCH (16:34)
[2020-04-12 18:57] LABS: HBSAg Index 0.17 S/CO (0-0.99); Hep B Surf Ag Non-Reactive S/CO (NonReactive)
[2020-04-12] MEDS: Atorvastatin Calcium 20 MG TAB PO SCH (20:11)
[2020-04-13] MEDS: hydrALAZINE 20 MG/ML VIAL SLOW IVP PRN (00:12)
[2020-04-13] MEDS: Propofol 1,000 MG/100 ML VIAL IV PRN ×2 (02:38→06:14)
[2020-04-13 05:14] LABS: Actual Bicarbonate (HCO3a) 31.5 mEq/L (22-28); Base Excess (BEa) 8.4 mEq/L (-2.0 to +3.0); CO2 Tension 37.7 mmHg (35.0-45.0); Calcium, Ionized (arterial) 1.09 mmol/L (1.12-1.30); Carboxyhemoglobin (COHb) 0.6 gm% (0.0-3.0); Hemoglobin (Hb) 10.7 g/dL (14.0-18.0); O2 Tension (PaO2), arterial 81.3 mmHg (80.0-100.0); Potassium - ABG Lab 4.68 mmol/L (3.70-5.30); pH, Arterial 7.54 (7.35-7.45)
--- NOTE | 2020-04-13 05:14 | PDOC.FM ---
- Subjective Subjective: Intubated and sedated. - Objective MAR Reviewed: Yes Vital Signs & Weight: Vital Signs (12 hours) Temp Pulse Resp BP Pulse Ox 04/13/20 04:00 14 04/13/20 03:00 98.4 F 04/13/20 02:49 66 04/13/20 02:00 12 04/13/20 00:31 63 12 100 04/13/20 00:28 64 04/13/20 00:12 64 162/88 H 04/13/20 00:00 12 04/12/20 23:00 98.9 F 04/12/20 22:00 12 04/12/20 21:53 68 04/12/20 20:00 19 04/12/20 19:26 99 04/12/20 19:00 98.1 F 04/12/20 18:54 68 12 100 04/12/20 18:52 68 04/12/20 18:00 12 Weight Admit Weight 83.461 kg Weight 80.2 kg Most Recent Monitor Data Heart Rate from ECG 68 NIBP 160/86 NIBP BP-Mean 110 Respiration from ECG 19 SpO2 100 I&O: 04/11/20 04/12/20 04/13/20 06:59 06:59 06:59 Intake Total 1092 702 Output Total 250 250 50 Balance -250 842 652 Result Diagrams: 04/13/20 05:19 04/13/20 05:19 Phys Exam - Physical Examination Constitutional: NAD HEENT: PERRLA, moist MMs Neck: supple, full ROM Respiratory: no wheezing, no rales, no rhonchi diminished breath sounds on the right Cardiovascular: RRR, no significant murmur Gastrointestinal: soft, no distention Musculoskeletal: no edema, pulses present Neurological: non-focal Skin: no rash, normal turgor Dx/Plan (1) Type II diabetes mellitus Status: Acute (2) Acute respiratory failure with hypoxia Code(s): J96.01 - ACUTE RESPIRATORY FAILURE WITH HYPOXIA Status: Acute (3) Pleural effusion Code(s): J90 - PLEURAL EFFUSION, NOT ELSEWHERE CLASSIFIED Status: Acute (4) ESRD (end stage renal disease) on dialysis Code(s): N18.6 - END STAGE RENAL DISEASE; Z99.2 - DEPENDENCE ON RENAL DIALYSIS Status: Chronic (5) Hypertension Code(s): I10 - ESSENTIAL (PRIMARY) HYPERTENSION Status: Chronic - Plan Plan: Acute hypoxic respiratory failure 2/2 R pleural effusion - CXR and CTA with R massive pleural effusion with complete R lung collapse and L midline shift - s/p tube thoracostomy 04/09. -2.5L dark fluid - Pulm and CV surg consulted, appreciate recs. Bronch performed 04/11/20. - During bronchoscopy patient experienced significant bronchospasm with subsequent hypoxia and bradycardia and required intubation (04/11). - Biopsies and brushings were taken from R lung mass. - Per pulm recs, will try to wean vent today for possible extubation. Hyperkalemia, resolved s/p HD - 6.2 > 4.8 ESRD on HD - T//Tue Dialysis - Nephro consulted, appreciate recs. IDDMII - Hyperglycemic protocol, ACHS - Restarted home meds. HTN - Resumed home medications. Possible history of CHF - Strict I's and O's, cont to monitor - ECHO showed EF 55-60% Syncope, resolved Elevated D-dimer - CTA negative for PE. likely from underlying condition conditions, including ESRD Symptomatic anemia - H/H improved. PCP: GIULIANA [place] Code: Full Diet: Renal IVF: SL VTE: SCDs Lines/Tubes: Intubated 04/11/20 Chest tube placement 04/09 Arterial line to right wrist 04/11 Central line R femoral 04/11 Disposition/LOS: Inpatient, critical care.
[2020-04-13 05:37] LABS: ALV-art Gradient 56.955 (0-20); Puncture Site LINE
[2020-04-13 05:40] LABS: #Monocytes 0.7 thou/uL (0.11-0.59); #Neutrophils 9.8 thou/uL (1.40-6.50); %Basophils 0.1 % (0.0-1.0); %Eosinophils 0.1 % (0.0-10.0); %Lymphocytes 8.6 % (21.0-51.0); %Monocytes 6.2 % (0.0-10.0); %Neutrophils 84.9 % (42.0-75.0); Hemoglobin 10.2 g/dL (14.0-18.0); Mean Corpuscular Hemoglobin 25.4 pg (27.0-31.0); Mean Corpuscular Volume 79.3 fL (78.0-98.0); Mean Platelet Volume 8.1 fL (7.4-10.4); Platelet Count 468 thou/uL (130-400); Red Blood Cell (RBC) Count 4.02 mill/uL (4.70-6.10); White Blood Cell (WBC) Count 11.6 thou/uL (4.8-10.8)
[2020-04-13 06:04] LABS: Anion Gap 16 mmol/L (10-20); BUN (Urea Nitrogen) 24 mg/dL (8.4-25.7); Calc. Creatinine Clearance 21 mL/min (70-130); Carbon Dioxide 29 mmol/L (22-29); Chloride 97 mmol/L (98-107); Estimated GFR-MDRD 17; Glucose 141 mg/dL (70-105); Magnesium 2.1 mg/dL (1.6-2.6); Phosphorus 5.2 mg/dL (2.3-4.7); Potassium 4.8 mmol/L (3.5-5.1); Sodium 137 mmol/L (136-145)
[2020-04-13] MEDS: Losartan 25 MG TAB PO SCH (07:43)
[2020-04-13] MEDS: Calcium Acetate 667 MG CAP PO SCH ×3 (07:43→16:32)
[2020-04-13] MEDS: NIFEdipine XL 60 MG TAB PO SCH (07:44)
[2020-04-13] MEDS: Carvedilol 25 MG TAB PO SCH ×2 (07:44→20:17)
[2020-04-13] MEDS: prednisoLONE 1% Ophth Susp 5 ml Bottle EA EYE SCH (08:22)
[2020-04-13] MEDS: HumuLIN 70/30 (300 UNITS/3 ML VIAL) SC SCH (08:22)
--- NOTE | 2020-04-13 08:25 | RAD ---
PORTABLE CHEST: HISTORY: Ventilator followup in ICU. COMPARISON: 04/12/20 FINDINGS: ET tube and NG tube remain in place. Opacification of the right hemithorax with a small focus of aera mayur lung in the mid right chest again noted, unchanged. Left lung remains aerated and clear. IMPRESSION: No interval change. POS: AGW
[2020-04-13] MEDS: Ondansetron PF 4 MG/2 ML Vial IVP PRN (09:44)
[2020-04-13] MEDS: methylPREDNISolone Sod Succ 40 MG VIAL IVP SCH ×2 (09:45→20:30)
--- NOTE | 2020-04-13 10:53 | PRG ---
DATE OF SERVICE: 04/13/2020 SUBJECTIVE: Mr. Thapa seems to be doing a little better. He is awake and making motions that he wants the endotracheal tube out. He has not had any complex problems in the past 24 hours and only minimal drainage from his chest tube. PHYSICAL EXAMINATION: VITAL SIGNS: Blood pressure 162/95, heart rate is 70, pulse ox 100%, respiratory rate is 24 with good spontaneous volumes of 400 to 500 mL. NECK: He has no JVD. LUNGS: Decreased breath sounds with rhonchi on the right. Chest tube shows no leak. There has been no significant chest tube drainage in the past 24 hours. HEART: Regular rate and rhythm with systolic murmur. ABDOMEN: Soft, distended, but bowel sounds are present. EXTREMITIES: He has 1+ edema. LABORATORY DATA: White count 11,600, hemoglobin is 10.2, platelet count 468, 000. Blood gas includes pH 7.54, pCO2 of 38, pO2 of 81, bicarbonate 31. This was obtained at a rate of 12, but good spontaneous efforts. Electrolytes include sodium 137, potassium 4.8, chloride 97, CO2 is 29, BUN 24, and creatinine 4.4. Chest x-ray shows no significant change with what appears to be a loculated fibrohydropneumothorax adequately drained with chest tube, but without lung expansion. Pathology is pending. IMPRESSION: 1. Right lung atelectasis with bronchoscopic evidence of cobblestone airways and central extrinsic compression of all airways. This would suggest underlying adenopathy as a cause and I suspect sarcoid may be the underlying pathologic diagnosis. I do not think that the lung is going to expand even with aggressive drainage and decortication. At this point, I think we should try to get him extubated, then reassess. 2. End-stage renal disease, on hemodialysis. PLAN: We will extubate him today. Pathology is still pending. Chest tube could be converted to water-seal drainage. Further evaluation will certainly be determined by his pathology reports. TIME SPENT: Critical care time, 30 minutes. Job ID: [id number] MTDD
--- NOTE | 2020-04-13 15:37 | PRG ---
DATE OF SERVICE: 04/13/2020 SUBJECTIVE: Patient was seen and examined at bedside and overnight events noted. Patient denies any shortness of breath or chest pain or palpitation. No history of nausea or vomiting or diarrhea or fever or chills or cramps. OBJECTIVE: General: This is well-built male, in no apparent distress. Vital Signs: Temperature 98. Heart Rate . Respiratory rate . Blood pressure 143/73. HEENT: Atraumatic, normocephalic. Oral mucosa is moist. Neck: Supple. Cardiovascular: S1, S2 heard. Rate and rhythm regular. Respiratory: Clear to auscultation. Gastrointestinal: Abdomen is soft. Musculoskeletal: No tenderness. No edema. Dermatologic: No skin rash. Neurologic: Alert and awake and oriented x3. No focal neurologic deficits. Moving all the extremities. Psychiatric: Mood and affect normal. LABORATORY DATA: Potassium 4.8, BUN is 24, creatinine is 4.3. ASSESSMENT AND PLAN: 1. End-stage renal disease. Continue hemodialysis on Tuesday, , and Tuesday. 2. Hyperkalemia, better. 3. Hyponatremia, limit fluid intake. 4. Hypertension. 5. Anemia of chronic disease. 6. Acute hypoxic respiratory failure. 7. Pleural effusion. 8. Continue dialysis as tolerated. Job ID: [id number]
--- NOTE | 2020-04-13 15:51 | PRG ---
DATE OF SERVICE: 04/13/2020 Please see the note from Dr. Barbara Calderon for which I agree. The patient was seen, evaluated, discussed, and examined with the residents at bedside. No major changes as he continues to be intubated and with the right-sided chest tube still putting out quite a bit of bloody dark fluid. Respiratory cotter, he is stable and oxygenating well on the ventilator. So at this point in time, I think, we just stay in the course until we get pathology and some of those results back. As of right now, we do not have those yet. It sounds like he also got dialysis yesterday which helped get some of the fluids off him. Job ID: [id number]
[2020-04-13] MEDS: cefTRIAXone\\ROCEPHIN 1 GM in Sodium Chloride 0.9% 100 ML IVPB SCH (16:32)
[2020-04-13] MEDS: Atorvastatin Calcium 20 MG TAB PO SCH (20:17)
--- NOTE | 2020-04-14 05:54 | PDOC.FM ---
- Subjective Subjective: Patient doing well this morning. Denies any complaints including chest pain, SOB , cough, congestion. Does state he has had some difficulty moving his hip, did have a hip replacement surgery at the site and has had difficulty since. Says he is hungry this morning and requesting a diet. - Objective MAR Reviewed: Yes Vital Signs & Weight: Vital Signs (12 hours) Temp Pulse Resp Pulse Ox 04/14/20 04:00 98.3 F 04/14/20 00:12 76 18 93 L 04/14/20 00:00 98.6 F 04/13/20 20:00 97.7 F 98 Weight Admit Weight 83.461 kg Weight 80.2 kg Most Recent Monitor Data Heart Rate from ECG 75 NIBP 153/80 NIBP BP-Mean 104 Respiration from ECG 20 SpO2 94 I&O: 04/12/20 04/13/20 04/14/20 06:59 06:59 06:59 Intake Total 1092 702 540 Output Total 250 70 230 Balance 842 632 310 Result Diagrams: 04/13/20 05:19 04/14/20 06:06 Phys Exam - Physical Examination Constitutional: NAD HEENT: moist MMs, sclera anicteric Neck: no JVD, supple, full ROM Respiratory: no wheezing, no rhonchi diminished breath sounds globally on right, clear on left Cardiovascular: RRR, no significant murmur Gastrointestinal: soft, positive bowel sounds Musculoskeletal: no edema, pulses present Neurological: normal sensation, moves all 4 limbs Psychiatric: normal affect, A&O x 3 Skin: no rash, normal turgor Dx/Plan (1) Acute respiratory failure with hypoxia Code(s): J96.01 - ACUTE RESPIRATORY FAILURE WITH HYPOXIA Status: Acute (2) Pleural effusion Code(s): J90 - PLEURAL EFFUSION, NOT ELSEWHERE CLASSIFIED Status: Acute (3) Type II diabetes mellitus Status: Acute Qualifiers: Diabetes mellitus jail insulin use: with jail use Diabetes mellitus complication status: with kidney complications Diabetes mellitus complication detail: with chronic kidney disease Chronic kidney disease stage : on chronic dialysis Qualified Code(s): E11.22 - Type 2 diabetes mellitus with diabetic chronic kidney disease; N18.6 - End stage renal disease; Z79.4 - terminal press operator (current) use of insulin; Z99.2 - Dependence on renal dialysis (4) ESRD (end stage renal disease) on dialysis Code(s): N18.6 - END STAGE RENAL DISEASE; Z99.2 - DEPENDENCE ON RENAL DIALYSIS Status: Chronic (5) Hypertension Code(s): I10 - ESSENTIAL (PRIMARY) HYPERTENSION Status: Chronic Qualifiers: Hypertension type: secondary to other renal disorders Qualified Code(s): I15.1 - Hypertension secondary to other renal disorders; N28.89 - Other specified disorders of kidney and ureter - Plan Plan: Patient is a 59 yo male who presents with SOB and syncopal episode is found to have a massive right pleural effusion and right lung collapse: #Acute hypoxic respiratory failure 2/2 R pleural effusion - CXR and CTA with R massive pleural effusion with complete R lung collapse and L midline shift - s/p tube thoracostomy 04/09. -2.5L dark fluid - Pulm and CV surg consulted, appreciate recs - Bronch performed 04/11/20. - During bronchoscopy patient experienced significant bronchospasm with subsequent hypoxia and bradycardia and required intubation (04/11). - Extubation performed at 11:00 on 04/13. Patient currently stable on room air with O2 sats in 90s - Biopsies and brushings were taken from R lung mass, results pending #Hyperkalemia, resolved s/p HD - 6.2 > 4.8 #ESRD on HD - T//Tue Dialysis - Nephro consulted, appreciate recs. #IDDMII - Hyperglycemic protocol, ACHS - Restarted home meds. #HTN - Resumed home medications. #Possible history of CHF - Strict I's and O's, cont to monitor - ECHO showed EF 55-60% #Syncope, resolved #Elevated D-dimer - CTA negative for PE. likely from underlying condition conditions, including ESRD #Symptomatic anemia - H/H improved. PCP: GIULIANA Creswell Code: Full Diet: Clear Liquid, adv ad tolerated IVF: SL VTE: SCDs Lines/Tubes: Intubated 04/11/20, Extubated 04/13 Chest tube placement 04/09 Arterial line to right wrist 04/11 Central line R femoral 04/11 Disposition/LOS: Stable, admitted to Inpatient in CCU. Continue to monitor respiratory status. Await results of lung biopsies. Continue to encourage working with PT/OT. Anticipate discharge in >48 hours. Addendum - Attending - Attending Attestation Date/Time: 04/14/202211 I personally evaluated the patient and discussed the management with Dr. Dupont I agree with the History, Examination, Assessment and Plan documented above with any addition or exceptions noted below - Patient without complaints. Denies SOB. Tolerating clears. Afebrile VSS. A/P: 1) Acute hypoxic resp failure - resolved. 2) Right lung atelectasis- awaiting pathology; continue chest tube. Plans as per pulmonary and CV surgery. 3) ESRD- continue HD. 4) DM - stable; continue to monitor accuchecks.
[2020-04-14 06:40] LABS: ALT (SGPT) 15 U/L (8-55); AST (SGOT) 15 U/L (5-34); Albumin 2.9 g/dL (3.5-5.0); Alkaline Phosphatase 115 U/L (40-110); Anion Gap 16 mmol/L (10-20); BUN (Urea Nitrogen) 47 mg/dL (8.4-25.7); Bilirubin, Total 0.3 mg/dL (0.2-1.2); Calc. Creatinine Clearance 15 mL/min (70-130); Calcium 8.8 mg/dL (7.8-10.44); Carbon Dioxide 28 mmol/L (22-29); Chloride 96 mmol/L (98-107); Estimated GFR-MDRD 11; Globulin 4.1 g/dL (2.4-3.5); Glucose 137 mg/dL (70-105); Potassium 5.3 mmol/L (3.5-5.1); Sodium 135 mmol/L (136-145)
--- NOTE | 2020-04-14 07:57 | RAD ---
EXAM: Single view of the chest HISTORY: Status post thoracotomy COMPARISON: 04/13/2020 FINDINGS: Single view of the chest shows an enlarged but stable cardiomediastinal silhouette. The en dotracheal tube and NG tube have been removed. The right chest tube is still present. There is stable minimal aeration of the right thorax. The bones are unremarkable. IMPRESSION: Stable exam status post extubation
[2020-04-14] MEDS: Carvedilol 25 MG TAB PO SCH ×2 (08:12→21:11)
[2020-04-14] MEDS: Calcium Acetate 667 MG CAP PO SCH ×3 (08:12→18:14)
[2020-04-14] MEDS: HumuLIN 70/30 (300 UNITS/3 ML VIAL) SC SCH (08:13)
[2020-04-14] MEDS: Losartan 25 MG TAB PO SCH (08:13)
[2020-04-14] MEDS: NIFEdipine XL 60 MG TAB PO SCH (08:13)
[2020-04-14] MEDS: prednisoLONE 1% Ophth Susp 5 ml Bottle EA EYE SCH (08:45)
[2020-04-14] MEDS: methylPREDNISolone Sod Succ 40 MG VIAL IVP SCH ×2 (10:16→21:12)
--- NOTE | 2020-04-14 10:17 | PRG ---
DATE OF SERVICE: 04/14/2020 SUBJECTIVE: Sarthak Thapa was extubated yesterday. He is doing well post-extubation. OBJECTIVE: VITAL SIGNS: Pulse 72, saturations blood pressure 163/84, respiratory rate 18. Afebrile. GENERAL: The patient is awake, alert, responsive. CHEST: Decreased breath sounds. No wheezing. CARDIAC: Normal S1, S2. No gallops. ABDOMEN: No masses. LABORATORY DATA: X-ray shows haziness in the left chest, pleural thickening. Pleural fluid cytology negative. IMPRESSION: 1. Right lung atelectasis, abnormal airway, extrinsic compression. 2. Renal failure. PLAN: Await results of the bronchoscopy. More than likely, if this is negative, I expect he is probably going to need decortication. Continue neb treatments, steroids, supportive care, empiric antibiotics. We will follow. Job ID: [id number]
[2020-04-14] MEDS: hydrALAZINE 20 MG/ML VIAL SLOW IVP PRN (13:51)
--- NOTE | 2020-04-14 14:15 | PRG ---
DATE OF SERVICE: 04/14/2020 SUBJECTIVE: A 59-year-old gentleman being seen for end-stage renal disease. The patient denied nausea, vomiting or chest pain. PHYSICAL EXAMINATION: GENERAL: The patient is awake and alert. VITAL SIGNS: Afebrile, pulse 75, breathing at 16, blood pressure 187/89. HEENT: Head normocephalic and atraumatic. Eyes intact, no ulcers. Nose intact, no ulcers. Ears intact, no ulcers. NECK: Supple. No JVD. CHEST: Symmetrical and clear. CARDIOVASCULAR: Shows S1 and S2, no rub, no murmur. GASTROINTESTINAL: Abdomen is soft, bowel sounds positive. EXTREMITIES: Show no edema or ulcers. SKIN: Shows no rash or petechiae. MUSCULOSKELETAL: Shows no joint swelling or stiffness. GENITOURINARY: Shows no Mckenzie or CVA tenderness. NEUROLOGIC: Motor intact. Cranial nerves intact. LABORATORY DATA: Reviewed. ASSESSMENT: 1. Stage 3 chronic renal disease, plan dialysis. 2. Hypertension, stable. 3. Anemia, stable. Medications based on GFR appropriate. Job ID: [id number]
[2020-04-14] MEDS: cefTRIAXone\\ROCEPHIN 1 GM in Sodium Chloride 0.9% 100 ML IVPB SCH (18:18)
[2020-04-14] MEDS: Atorvastatin Calcium 20 MG TAB PO SCH (21:12)
[2020-04-15] MEDS: Ondansetron PF 4 MG/2 ML Vial IVP PRN (04:46)
--- NOTE | 2020-04-15 05:51 | PDOC.FM ---
Addendum entered and electronically signed by Roxann Hayward MD 04/15/20 08: 15: Pt is scheduled to receive dialysis today but had not yet received it when I saw him this morning. Original Note: - Subjective Subjective: Pt says he is not feeling well this morning because of a burning sensation in his substernal area. This is not normal for him and he had just finished eating so I suspect it is reflux. He states he has been breathing fine and denies CP, denies significant cough. He is concerned about where to get dialysis because he used to go to [facility] but "they made my mad so I think she doesn't want me to go back there". He was wondering if we could help get him set up with dialysis somewhere else after discharge. Chest tube drained 240 mL on 04/14 and had drained 60mL by this morning (04/15). It is dark brown fluid, consistent with the description of the fluid sample sent to pathology. Lung biopsy results are negative for malignancy and fungal microorganisms (04/14) [place] sample resulted negative for malignancy (04/14) Fluid cultures resulted neg x5d (04/14) - Objective Vital Signs & Weight: Vital Signs (12 hours) Temp Pulse Resp BP BP Pulse Ox 04/15/20 04:32 98.2 F 78 20 156/81 H 95 04/15/20 01:09 138/70 04/15/20 00:31 93 L 04/15/20 00:28 81 16 93 L 04/15/20 00:00 98.1 F 81 20 93 L 04/14/20 20:29 97.6 F 74 20 168/80 H 94 L Weight Admit Weight 83.461 kg Weight 81 kg Most Recent Monitor Data Heart Rate from ECG 80 NIBP 148/83 NIBP BP-Mean 104 Respiration from ECG 27 SpO2 98 I&O: 04/13/20 04/14/20 04/15/20 06:59 06:59 06:59 Intake Total 702 650 737 Output Total 70 240 60 Balance 632 103 360 Result Diagrams: 04/15/20 10:09 04/15/20 10:09 Phys Exam - Physical Examination Constitutional: NAD Had blankets wrapped around him; had finished eating Strabismus Neck: supple Looks a little stiff Respiratory: no wheezing, no rales L clear to auscultation; absent sounds on R consistent with lung collapse Cardiovascular: RRR, no significant murmur Gastrointestinal: soft Musculoskeletal: no edema Neurological: moves all 4 limbs Psychiatric: normal affect, A&O x 3 Deviation from normal: Slow speech; appears slightly cognitively limited Skin: no rash Dx/Plan - Plan Plan: Dx/Plan (1) Acute respiratory failure with hypoxia Code(s): J96.01 - ACUTE RESPIRATORY FAILURE WITH HYPOXIA Status: Acute (2) Pleural effusion Code(s): J90 - PLEURAL EFFUSION, NOT ELSEWHERE CLASSIFIED Status: Acute (3) Type II diabetes mellitus Status: Acute Qualifiers: Diabetes mellitus care home insulin use: with care home use Diabetes mellitus complication status: with kidney complications Diabetes mellitus complication detail: with chronic kidney disease Chronic kidney disease stage : on chronic dialysis Qualified Code(s): E11.22 - Type 2 diabetes mellitus with diabetic chronic kidney disease; N18.6 - End stage renal disease; Z79.4 - half-way (current) use of insulin; Z99.2 - Dependence on renal dialysis (4) ESRD (end stage renal disease) on dialysis Code(s): N18.6 - END STAGE RENAL DISEASE; Z99.2 - DEPENDENCE ON RENAL DIALYSIS Status: Chronic (5) Hypertension Code(s): I10 - ESSENTIAL (PRIMARY) HYPERTENSION Status: Chronic Qualifiers: Hypertension type: secondary to other renal disorders Qualified Code(s): I15.1 - Hypertension secondary to other renal disorders; N28.89 - Other specified disorders of kidney and ureter - Plan Plan: Patient is a 59 yo male who presents with SOB and syncopal episode is found to have a massive right pleural effusion and right lung collapse: #Acute hypoxic respiratory failure 2/2 R pleural effusion - CXR and CTA with R massive pleural effusion with complete R lung collapse and L midline shift - s/p tube thoracostomy 04/09. - 2.5L dark fluid drained - Pulm consulted - suspect lung collapse may not improve and may require decortication. Suspect Sarcoid process - CV surg consulted, appreciate recs - Bronch performed 04/11/20. - During bronchoscopy patient experienced significant bronchospasm with subsequent hypoxia and bradycardia and required intubation (04/11). - Extubation performed at 11:00 on 04/13. Patient currently stable on room air with O2 sats in 90s - Effusion Cxs negative x5 days (04/14) - Biopsies and brushings were taken from R lung mass - both negative for malignancy and biopsy negative for fungal organisms as well (04/14) #Hyperkalemia, resolved s/p HD - 6.2 > 4.8 #ESRD on HD - T//Sat Dialysis - Nephro consulted and rec dialysis #IDDMII - Hyperglycemic protocol, ACHS - Restarted home meds. #HTN - Resumed home medications. #Possible history of CHF - Strict I's and O's, cont to monitor - ECHO showed EF 55-60% #Syncope, resolved #Elevated D-dimer - CTA negative for PE. likely from underlying condition conditions, including ESRD #Symptomatic anemia - H/H improved. PCP: GIULIANA Glens[place] Code: Full Diet: Clear Liquid, adv ad tolerated IVF: SL VTE: SCDs Lines/Tubes: Intubated 04/11/20, Extubated 04/13 Chest tube placement 04/09 Arterial line to right wrist 04/11 Central line R femoral 04/11 Disposition/LOS: Stable, admitted to Inpatient in CCU. Continue to monitor respiratory status. Await results of lung biopsies. Continue to encourage working with PT/OT. Anticipate discharge in >48 hours. Addendum - Attending - Attending Attestation Date/Time: 04/15/20 180 I personally evaluated the patient and discussed the management with Dr. Chery Dawson I agree with the History, Examination, Assessment and Plan documented above with any addition or exceptions noted below - Patient without complaints. Denies SOB. Afebrile VSS. A/P: 1) Acute hypoxic resp failure secondary to right lung collapse- chest tubes in place; cultures and pathology negative to date. Await further recommendations from CV surgery and pulmonary. 2) ESRD on HD- continue HD, 3) DM- stable.
--- NOTE | 2020-04-15 08:00 | RAD ---
EXAM: CHEST ONE VIEW HISTORY: Post right thoracotomy. COMPARISON: 04/14/2020 FINDINGS: Cardiac silhouette remains enlarged. Opacification of the majority of the right hemithorax is present again with loculated area of gas present in the right hemithorax similar to prior study probably secondary to postoperative change. Right thoracostomy tube remains in place. Shift of mediastinal str uctures to the right is again noted. The left lung remains clear. No other interval change. IMPRESSION: Stable chest.
[2020-04-15] MEDS: Calcium Acetate 667 MG CAP PO SCH ×3 (08:10→16:52)
[2020-04-15] MEDS: Losartan 25 MG TAB PO SCH (08:10)
[2020-04-15] MEDS: HumuLIN 70/30 (300 UNITS/3 ML VIAL) SC SCH (08:11)
[2020-04-15] MEDS: Carvedilol 25 MG TAB PO SCH ×2 (08:11→20:16)
[2020-04-15] MEDS: NIFEdipine XL 60 MG TAB PO SCH (08:11)
[2020-04-15] MEDS: prednisoLONE 1% Ophth Susp 5 ml Bottle EA EYE SCH (08:12)
[2020-04-15] MEDS ORDERED: Calcium Carbonate 500 MG ChewTAB PO PRN (10:27)
[2020-04-15] MEDS ORDERED: Senokot 8.6 MG TAB PO PRN (10:30)
[2020-04-15 10:32] LABS: #Lymphocytes 1.1 thou/uL (1.20-3.40); #Monocytes 1.2 thou/uL (0.11-0.59); #Neutrophils 9.1 thou/uL (1.40-6.50); %Eosinophils 0.3 % (0.0-10.0); %Lymphocytes 9.9 % (21.0-51.0); %Monocytes 10.4 % (0.0-10.0); %Neutrophils 79.4 % (42.0-75.0); Hemoglobin 9.4 g/dL (14.0-18.0); Mean Corpuscular HGB CONC 30.9 g/dL (32.0-36.0); Mean Corpuscular Hemoglobin 24.7 pg (27.0-31.0); Mean Corpuscular Volume 80.2 fL (78.0-98.0); Mean Platelet Volume 8.2 fL (7.4-10.4); Platelet Count 384 thou/uL (130-400); RBC Distribution Width 16.1 % (11.5-14.5); Red Blood Cell (RBC) Count 3.78 mill/uL (4.70-6.10); White Blood Cell (WBC) Count 11.5 thou/uL (4.8-10.8)
[2020-04-15 10:47] LABS: Anion Gap 17 mmol/L (10-20); BUN (Urea Nitrogen) 77 mg/dL (8.4-25.7); Calc. Creatinine Clearance 12 mL/min (70-130); Calcium 8.7 mg/dL (7.8-10.44); Carbon Dioxide 28 mmol/L (22-29); Chloride 96 mmol/L (98-107); Estimated GFR-MDRD 9; Glucose 164 mg/dL (70-105); Magnesium 2.5 mg/dL (1.6-2.6); Potassium 5.3 mmol/L (3.5-5.1); Sodium 136 mmol/L (136-145)
[2020-04-15] MEDS: methylPREDNISolone Sod Succ 40 MG VIAL IVP SCH (11:18)
--- NOTE | 2020-04-15 11:45 | PRG ---
DATE OF SERVICE: 04/15/2020 SUBJECTIVE: Sarthak Thapa is a 59-year-old gentleman, being dialyzed. OBJECTIVE: VITAL SIGNS: Pulse 70, saturations 97% on room air, blood pressure 130/84, respirations 18. GENERAL: Denies any difficulty breathing. CHEST: Decreased breath sounds of right lung. CARDIAC: Normal S1 and S2. No gallops. ABDOMEN: No masses. IMPRESSION: 1. Right hemothorax, etiology unclear. 2. Bronchoscopy and pleural fluid are negative for cytology. PLAN: He probably needs a decortication of his right chest whenever Plastic Surgery has time to do that. Otherwise, I agree. We will discontinue all antibiotics and steroids. Job ID: [id number]
--- NOTE | 2020-04-15 15:03 | PRG ---
DATE OF SERVICE: 04/15/2020 SUBJECTIVE: This is a 59-year-old gentleman being seen for end-stage renal disease. The patient denied nausea, vomiting, or chest pain. OBJECTIVE: GENERAL: On exam, the patient is awake and alert. VITAL SIGNS: Afebrile, pulse 75, breathing at 16, and blood pressure 133/84. HEENT: Head normocephalic and atraumatic. Eyes intact, no ulcers. Nose intact, no ulcers. Ears intact, no ulcers. NECK: Supple. No JVD. CHEST: Symmetrical and clear. CARDIOVASCULAR: Shows S1 and S2, no rub, no murmur. GASTROINTESTINAL: Abdomen is soft, bowel sounds positive. EXTREMITIES: Show no edema or ulcers. SKIN: Shows no rash or petechiae. MUSCULOSKELETAL: Shows no joint swelling or stiffness. GENITOURINARY: Shows no Mckenzie or CVA tenderness. NEUROLOGIC: Motor intact. Cranial nerves intact. LABORATORY DATA: Hemoglobin 8.4. Potassium 5.3. ASSESSMENT AND PLAN: 1. Stage 6 chronic kidney disease. Plan dialysis today. 2. Hypertension, stable. 3. Anemia, stable. 4. Medications based on GFR are appropriate. Job ID: [id number]
[2020-04-15] MEDS: Atorvastatin Calcium 20 MG TAB PO SCH (20:15)
[2020-04-16] MEDS: Carvedilol 25 MG TAB PO SCH ×2 (05:32→21:09)
--- NOTE | 2020-04-16 06:17 | PDOC.FM ---
- Subjective Subjective: Pt was taken for R lung thorocoscopy with Dr. Lopez so I was unable to see him until after his surgery. Pt was still drowsy but was responsive. He said he was feeling good, mentioned mild pain in his R side, and stated he was hungry. He had no other complaints. John ended up performing a R VAT, muscle-sparing thoracotomy, total lung decortication, and FOB. Mr. Thapa now has a BLAYNE drain and an additional 2 chest tubes. I could not visualize the area 2/2 extensive dressings. There was already fluid being collected and it appeared serosanguinous in nature. - Objective Vital Signs & Weight: Vital Signs (12 hours) Temp Pulse Resp BP Pulse Ox 04/16/20 05:11 98.0 F 73 16 147/71 H 94 L 04/16/20 00:34 74 14 100 04/16/20 00:32 98.8 F 77 16 128/72 100 04/15/20 20:00 95 04/15/20 19:44 97.2 F L 77 16 139/76 95 04/15/20 19:00 72 18 94 L Weight Admit Weight 83.461 kg Weight 79.3 kg Most Recent Monitor Data Heart Rate from ECG 80 NIBP 148/83 NIBP BP-Mean 104 Respiration from ECG 27 SpO2 98 I&O: 04/14/20 04/15/20 04/16/20 06:59 06:59 06:59 Intake Total 650 977 340 Output Total 240 60 60 Balance 410 917 280 Result Diagrams: 04/16/20 16:28 04/16/20 16:28 Phys Exam - Physical Examination Constitutional: NAD Neck: supple Cardiovascular: RRR, no significant murmur Gastrointestinal: soft Musculoskeletal: no edema Neurological: moves all 4 limbs Psychiatric: normal affect, A&O x 3 Skin: no rash Dx/Plan (1) Acute respiratory failure with hypoxia Code(s): J96.01 - ACUTE RESPIRATORY FAILURE WITH HYPOXIA Status: Acute (2) Pleural effusion Code(s): J90 - PLEURAL EFFUSION, NOT ELSEWHERE CLASSIFIED Status: Acute (3) Type II diabetes mellitus Status: Chronic Qualifiers: Diabetes mellitus intermediate insulin use: with intermediate use Diabetes mellitus complication status: with kidney complications Diabetes mellitus complication detail: with chronic kidney disease Chronic kidney disease stage : on chronic dialysis Qualified Code(s): E11.22 - Type 2 diabetes mellitus with diabetic chronic kidney disease; N18.6 - End stage renal disease; Z79.4 - USP (current) use of insulin; Z99.2 - Dependence on renal dialysis (4) ESRD (end stage renal disease) on dialysis Code(s): N18.6 - END STAGE RENAL DISEASE; Z99.2 - DEPENDENCE ON RENAL DIALYSIS Status: Chronic (5) Hypertension Code(s): I10 - ESSENTIAL (PRIMARY) HYPERTENSION Status: Chronic Qualifiers: Hypertension type: secondary to other renal disorders Qualified Code(s): I15.1 - Hypertension secondary to other renal disorders; N28.89 - Other specified disorders of kidney and ureter (6) Diabetes 1.5, managed as type 1 Code(s): E10.9 - TYPE 1 DIABETES MELLITUS WITHOUT COMPLICATIONS Status: Acute - Plan Plan: Patient is a 59 yo male who presents with SOB and syncopal episode is found to have a massive right pleural effusion and right lung collapse: #Acute hypoxic respiratory failure 2/2 R pleural effusion - CXR and CTA with R massive pleural effusion with complete R lung collapse and L midline shift - s/p tube thoracostomy 04/09. - 2.5L dark fluid drained - Pulm consulted - suspect lung collapse may not improve and may require decortication. Suspect Sarcoid process - CV surg consulted, appreciate recs - Bronch performed 04/11/20. - During bronchoscopy patient experienced significant bronchospasm with subsequent hypoxia and bradycardia and required intubation (04/11). - Extubation performed at 11:00 on 04/13. Patient currently stable on room air with O2 sats in 90s - Effusion Cxs negative x5 days (04/14) - Biopsies and brushings were taken during bronchoscopy - both negative for malignancy, and biopsy negative for fungal organisms as well (04/14) - Sigtenhorst performed R VAT, muscle-sparing thoracotomy, total lung decortication, FOB. 2 additional chest tubes were placed so he has a total of 3 and a BLAYNE drain was placed. (04/16) #Hyperkalemia, resolved s/p HD - 6.2 > 4.8 > 5.3 (04/16) #ESRD on HD - T//Sat Dialysis - Nephro consulted and rec dialysis #IDDMII - Hyperglycemic protocol, ACHS - Restarted home meds. #HTN - Resumed home medications. #Possible history of CHF - Strict I's and O's, cont to monitor - ECHO showed EF 55-60% #Syncope, resolved #Elevated D-dimer - CTA negative for PE. likely from underlying condition conditions, including ESRD #Symptomatic anemia - H/H improved. PCP: GIULIANA Purdin Code: Full Diet: Clear Liquid, adv ad tolerated IVF: SL VTE: SCDs Lines/Tubes: Intubated 04/11/20, Extubated 04/13 Chest tube placement 04/09 Arterial line to right wrist 04/11 Central line R femoral 04/11 Disposition/LOS: Stable s/p R VAT and total lung decortication, transferred to ICU. Continue to monitor respiratory status. Continue to encourage working with PT/OT. Anticipate discharge in >48 hours. Addendum - Attending - Attending Attestation Date/Time: 04/16/20 2553 I personally evaluated the patient and discussed the management with Dr. Chery Dawson I agree with the History, Examination, Assessment and Plan documented above with any addition or exceptions noted below - Patient denies any complaints. Pain well controlled. Afebrile VSS. A/P: 1) Right lung atelectasis/collapse- s/ p thoracostomy and decortication - continue chest tubes and plans as per CV surgery. Path from pleura pending. NEERAJ level pending. 2) ESRD- continue HD, 3) DM- stable
[2020-04-16] MEDS ORDERED: EPINEPHrine 1 MG/ML AMP ONE (06:37)
[2020-04-16] MEDS ORDERED: Bupivacaine PF 0.5% 30 ML VIAL ONE (06:37)
[2020-04-16] MEDS: Losartan 25 MG TAB PO SCH (07:39)
[2020-04-16] MEDS: HumuLIN 70/30 (300 UNITS/3 ML VIAL) SC SCH (07:39)
[2020-04-16] MEDS: Calcium Acetate 667 MG CAP PO SCH ×3 (07:39→17:23)
[2020-04-16] MEDS: NIFEdipine XL 60 MG TAB PO SCH (07:39)
[2020-04-16] MEDS: Polyethylene Glycol 3350 17 GM Packet PO SCH (07:40)
[2020-04-16] MEDS: prednisoLONE 1% Ophth Susp 5 ml Bottle EA EYE SCH (07:40)
[2020-04-16] MEDS ORDERED: Albuterol Sulfate 1.25 MG/3 ML NEB ONE ×2 (08:17→08:19)
[2020-04-16] MEDS ORDERED: Phenylephrine 10 MG/ML VIAL ONE (08:25)
[2020-04-16] MEDS ORDERED: Fentanyl 100 MCG/2 ML VIAL ONE ×2 (08:25→13:43)
[2020-04-16] MEDS ORDERED: Ketamine 50 MG/ML (10ML VIAL) ONE (08:25)
[2020-04-16] MEDS ORDERED: EPHEDRINE 25 MG/5 ML SYRINGE ONE (09:19)
[2020-04-16] MEDS ORDERED: Rocuronium Bromide 10 MG/ML (10ML VIAL) ONE (09:19)
[2020-04-16] MEDS ORDERED: PROPOFOL 200 MG/20 ML VIAL ONE (09:19)
[2020-04-16] MEDS ORDERED: Ondansetron PF 4 MG/2 ML Vial ONE (09:19)
[2020-04-16] MEDS ORDERED: Glycopyrrolate 0.2 MG/ML 5 ML SYRINGE ONE (09:19)
[2020-04-16] MEDS ORDERED: Lidocaine 1% PF 5 ML VIAL ONE (09:19)
[2020-04-16] MEDS ORDERED: Ropivacaine 0.2% HCl/PF 20 ML ONE (10:16)
[2020-04-16] MEDS ORDERED: Ropivacaine 0.5% HCl/PF (150 MG/30 ML VIAL) ONE (10:16)
[2020-04-16] MEDS ORDERED: ROPIVACAINE 0.2% NERVE BLCK SCH (10:30)
--- NOTE | 2020-04-16 10:35 | PRG ---
DATE OF SERVICE: 04/16/2020 SUBJECTIVE: A 59-year-old gentleman being seen for end-stage renal disease. The patient denied nausea, vomiting, or chest pain. OBJECTIVE: GENERAL: On exam, the patient is awake and alert. VITAL SIGNS: Afebrile, pulse 75, breathing at 16, and blood pressure 147/71. HEENT: Head normocephalic and atraumatic. Eyes intact, no ulcers. Nose intact, no ulcers. Ears intact, no ulcers. NECK: Supple. No JVD. CHEST: Symmetrical and clear. CARDIOVASCULAR: Shows S1 and S2, no rub, no murmur. GASTROINTESTINAL: Abdomen is soft, bowel sounds positive. EXTREMITIES: Show no edema or ulcers. SKIN: Shows no rash or petechiae. MUSCULOSKELETAL: Shows no joint swelling or stiffness. GENITOURINARY: Shows no Mckenzie or CVA tenderness. NEUROLOGIC: Motor intact. Cranial nerves intact. LABORATORY DATA: Reviewed. ASSESSMENT AND PLAN: 1. Stage 6 chronic kidney disease, stable. 2. Hypertension, stable. 3. Anemia, stable. 4. Medications based on GFR are appropriate. Job ID: [id number]
[2020-04-16] MEDS ORDERED: Bacitracin Zinc Ointment 30 gm TUBE ONE (12:30)
[2020-04-16] MEDS ORDERED: SUGAMMADEX SODIUM 500 MG/5 ML VIAL ONE (13:00)
[2020-04-16] MEDS ORDERED: HYDROmorphone 2 MG/ML VIAL SLOW IVP PRN (13:14)
[2020-04-16] MEDS ORDERED: PACU-Morphine 4MG/ML VIAL SLOW IVP PRN (13:14)
[2020-04-16] MEDS ORDERED: Promethazine HCl 25 MG/ML VIAL SLOW IVP PRN (13:14)
[2020-04-16] MEDS ORDERED: Promethazine HCl 25 MG/ML VIAL IM PRN (13:14)
[2020-04-16] MEDS ORDERED: Ondansetron HCl/PF 4 MG/2 ML Vial IVP PRN (13:14)
--- NOTE | 2020-04-16 13:50 | RAD ---
PORTABLE CHEST: 04/16/20 INDICATIONS: Post thoracotomy. COMPARISON: 04/15/20. FINDINGS/IMPRESSION: There are three right chest tubes in place. Increased aeration of the right chest. There continues to be right pleural thickening and/or loculated fluid. Left lung is well aerated. Streaky atelectasis or infiltrate in the left mid lung is noted. POS: AH
[2020-04-16 16:44] LABS: Mean Corpuscular Hemoglobin 24.5 pg (27.0-31.0); Mean Corpuscular Volume 81.8 fL (78.0-98.0); Mean Platelet Volume 8.5 fL (7.4-10.4); Platelet Count 381 thou/uL (130-400); RBC Distribution Width 16.5 % (11.5-14.5); Red Blood Cell (RBC) Count 4.08 mill/uL (4.70-6.10); White Blood Cell (WBC) Count 17.4 thou/uL (4.8-10.8)
[2020-04-16 16:56] LABS: Anion Gap 17 mmol/L (10-20); BUN (Urea Nitrogen) 57 mg/dL (8.4-25.7); Calc. Creatinine Clearance 15 mL/min (70-130); Calcium 8.2 mg/dL (7.8-10.44); Carbon Dioxide 23 mmol/L (22-29); Chloride 100 mmol/L (98-107); Estimated GFR-MDRD 11; Glucose 102 mg/dL (70-105); Potassium 6.4 mmol/L (3.5-5.1); Sodium 134 mmol/L (136-145)
[2020-04-16 16:57] LABS: Anisocytosis SLIGHT = 6-15 cells (100X) (0-5/hpf); Band 9 % (5-11); Hypochromia SLIGHT = 6-15 cells (100X) (0-5/hpf); Lymphocytes 7 % (21-51); MDiff Complete? YES; Monocytes 8 % (0-10); Neutrophil 76 % (42-75); Nucleated RBC 1 % (0); Ovalocytes SLIGHT = 2-5 cells (100X) (0-1/hpf); Platelet Morphology Comment Appears Adequate; Poikilocytosis SLIGHT = 6-15 cells (100X) (0-5/hpf); Polychromasia SLIGHT = 2-3 cells (100X) (0-2/hpf); Schistocytes SLIGHT = 2-5 cells (100X) (0-1/hpf); Target Cells SLIGHT = 2-5 cells (100X) (0-1/hpf); Tear Drops SLIGHT = 2-5 cells (100X) (0-1/hpf)
[2020-04-16 17:01] LABS: Actual Bicarbonate (HCO3a) 24.9 mEq/L (22-28); Base Excess (BEa) -0.8 mEq/L (-2.0 to +3.0); CO2 Tension 46.1 mmHg (35.0-45.0); Calcium, Ionized (arterial) 1.09 mmol/L (1.12-1.30); Carboxyhemoglobin (COHb) 0.8 gm% (0.0-3.0); Hemoglobin (Hb) 10.4 g/dL (14.0-18.0); O2 Tension (PaO2), arterial 127.3 mmHg (80.0-100.0); Potassium - ABG Lab 5.93 mmol/L (3.70-5.30); pH, Arterial 7.35 (7.35-7.45)
[2020-04-16 17:03] LABS: ALV-art Gradient 43.235 (0-20); Puncture Site LINE
[2020-04-16] MEDS ORDERED: Morphine 4 MG/ML VIAL SLOW IVP PRN (17:04)
[2020-04-16] MEDS ORDERED: Morphine Sulfate 100 MG in Dextrose 5% in Water 98 ML IV SCH (17:05)
[2020-04-16] MEDS ORDERED: Ropivacaine 0.2% 550 ML 550 ML NERVE BLCK SCH (17:06)
[2020-04-16] MEDS ORDERED: Ketorolac Tromethamine 30 MG/ML VIAL IVP SCH (18:00)
--- NOTE | 2020-04-16 18:03 | PRG ---
DATE OF SERVICE: 04/16/2020 SUBJECTIVE: Sarthak Thapa postop decortication for loculated hemothorax. He is doing well. OBJECTIVE: VITAL SIGNS: His sats are 95%, pulse 80, blood pressure and respirations 18. CHEST: Decreased breath sounds in right lung. Left, unremarkable. CARDIAC: Normal S1 and S2. No gallops. ABDOMEN: No masses. IMPRESSION: Right lung hemothorax decortication, renal failure, and legally blind. PLAN: He is going to the ICU. We will continue aggressive PT, neb treatments, supportive care, and empiric antibiotics. Job ID: [id number]
--- NOTE | 2020-04-16 19:30 | OP ---
DATE OF PROCEDURE: 04/16/2020 PROCEDURES PERFORMED: Right thoracoscopy converted to muscle sparing right thoracotomy with total lung decortication, On-Q PainBuster subpleural catheter placement x2, and fiberoptic bronchoscopy for pulmonary toilet. PREOPERATIVE DIAGNOSIS: Trapped right lung. 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 ANESTHESIA: General endotracheal anesthesia. INDICATIONS FOR PROCEDURE: The patient is a 59-year-old dialysis patient, who after several syncopal episodes during the course of a day, starting with immediately following dialysis was found to have an opacified right hemithorax on chest x-ray. Attempts at draining the chest with thoracentesis and chest tube placement were unsuccessful, and there was an abruptly obstructed air column in the right tracheobronchial tree. Fiberoptic bronchoscopy showed obstruction of the right lung as the mainstem bronchus arborized. Biopsies and brushings were negative for malignancy. The patient is now taken to the operating room with the plan to do a thoracoscopy for diagnostic purposes and if feasible for decortication. FINDINGS: Extensive coagulum consistent with old clot mixed with old bloody fluid with an underlying trapped lung that expanded well upon decortication. Post decortication, bronchoscopy showed the right-sided endobronchial tree to be open to at least the segmental bronchial level with thick mucus aspirated from the middle lobe and the medial basilar segment of the lower lobe with no obvious spillage into the left-sided bronchial tree. DESCRIPTION OF PROCEDURE: After informed consent was obtained, the patient was taken to the operating room and placed in the supine position on the operating table. General anesthesia was induced and an attempt was made to place a conventional double-lumen endotracheal tube, but it was quite difficult to advance the bronchial portion of the tube into the left mainstem bronchus. During his previous procedure, the exchange of the single-lumen tube that was used for his bronchoscopy and the double-lumen tube that was to be used for his thoracoscopy was associated with the development of intense bronchospasm with profound hypoxia and hypotension. A brief attempt was made to intubate with a double-lumen tube, but when it became clear that it was going to be a bit difficult, that attempt was abandoned. He was preoxygenated and then intubation was performed with a single-lumen tube. Under bronchoscopic guidance, it was attempted to advance the tube into the left mainstem bronchus, but that was also met with difficulty and was abandoned. The tube was withdrawn up into the trachea and secured. He was then turned into the left lateral decubitus position. His existing right-sided chest tube was removed and his right chest was prepped and draped in sterile fashion. An incision was made about a handbreadth above the costal margin just anterior to the midaxillary line. It was carried through the subcutaneous tissue and anticipating that thoracoscopy was only going to be diagnostic and not therapeutic, that port site was tunneled by retracting the skin incision posteriorly and superiorly and bluntly dissecting through the chest wall musculature and pleura. A Yankauer sucker was used to aspirate a modest amount of bloody fluid. A large clamp was placed through the incision to make sure that the lung itself was free from the chest wall, and then a thoracoscope port and scope were inserted. Under thoracoscopic guidance, a 2nd incision was made in a similar fashion low in the chest anteriorly and through that incision, long ring clamps were used to break up and extract a large amount of coagulum that had the appearance consistent with old blood. This was a somewhat drawn-out and tedious process that was alternated with aspirating the chest off fluid. When enough of the debris had been cleared away, the trapped lung was visible. Some contours of the lung could be recognized as trapped lung and on close thoracoscopic inspection, there was an area where visceral pleura seem to be visible through a very thin area of that rind. Aspirating the free space of the chest and giving a large breath through the endotracheal tube resulted in loss of visualization indicating that at least the mediastinum was not fixed and there was some suggestion that with the use of positive-pressure ventilation or aspiration of the free space in the chest that the lung could be freed. It was clear, however, that decortication of the lung could not be accomplished thoracoscopically, but it did appear feasible to safely do it through an open approach. The thoracoscope was removed and a slightly obliquely oriented incision was made transversely just below the tip of the scapula. The latissimus and serratus were mobilized, and the fifth intercostal space was entered. Using my hands, remaining coagulum primarily along the diaphragmatic surface and in the posterior costophrenic sulcus was evacuated, and then forceps and scissors were used to develop a plane between the visceral pleura and rind, starting on what proved to be the lower lobe where visceral pleura could be identified through a thin area of that rind. The rind was ranged from a millimeter or so thick to 4, 5 or perhaps even 6 mm thick and was fairly densely adherent to the pleura, but it was feasible to bluntly free most of the lung from the rind and it sharply excised that rind to free the lung. This process was started on the lower lobe and then taken onto the middle and finally the upper lobes. Because of exposure, a considerable amount of the decortication of the upper lobe required finger-fracture technique to free the lung from the rind and then the rind was excised with a combination of scissors and cautery. With the lung fairly mobile, the decortication was tailored to lyse restrictive bands. Once the decortication had been completed, the chest was drained, placing 36-Ukrainian chest tubes anteriorly and posteriorly at the apex through the 2 incisions used for the thoracoscopic portion of the procedure and a right angle basilar tube positioned with the tip in the costophrenic sulcus posteromedially through a separately made incision. On-Q PainBuster catheters were then introduced into the chest and tunneled deep to the pleura superiorly and inferiorly at the posteromedial apex of the intercostal incision. 5 mL of 0.2% ropivacaine was bolused into each catheter. The catheters were secured to the skin with suture. The ribs were then reapproximated with [id number] #1 Vicryl suture. The muscle layers were tacked back in their anatomic position with running #1 Vicryl. A 19-Ukrainian bulb suction drain was placed into the developed subcutaneous space just superficial to the latissimus and then the subcu was closed with 2-0 Vicryl. The skin was closed with 4-0 Vicryl subcuticular suture. The chest tubes were connected to close suction drainage. Dermabond and dressings were applied to the wound, and On-Q PainBuster reservoir was attached to the catheters. The patient was then turned supine and a fiberoptic bronchoscope was lubricated and inserted through a swivel device on the endotracheal tube in contradistinction to the bronchoscopy done a few days ago. There was no obvious distortion or extrinsic compression of the right-sided endobronchial tree and the upper, middle and lower lobes could each be examined to at least the segmental bronchial level. A large amount of thick mucus was aspirated from the middle lobe bronchus. Once that was cleared, no additional mucus was aspirated from the segmental bronchi. Large amount of mucus was aspirated from the medial basilar segment of the lower lobe. The remainder of the right lung appeared clear and upon examining the left-sided endobronchial tree, there was no evidence of spillage. The scope was withdrawn. The patient was allowed to awaken and was extubated in the operating room and taken to the recovery area in stable condition. Job ID: [id number]
[2020-04-16] MEDS: Atorvastatin Calcium 20 MG TAB PO SCH (21:09)
--- NOTE | 2020-04-16 23:46 | PDOC.FM ---
- Subjective Subjective: Nurse called to report that patient's blood pressure had dropped after he was given his Coreg. 130/60 down to 87/51. When examined, he was sleeping, easy to awaken and answer questions. Aysymptomatic: No CP, SOB, or pain. Pleuravacs were functioning. - Objective Vital Signs & Weight: Vital Signs (12 hours) Temp Pulse Resp Pulse Ox 04/16/20 20:00 98.0 F 04/16/20 17:06 65 16 100 04/16/20 16:17 97.7 F 04/16/20 16:10 100 Weight Admit Weight 83.461 kg Weight 79.3 kg Most Recent Monitor Data Heart Rate from ECG 61 NIBP 83/55 NIBP BP-Mean 64 Respiration from ECG 16 SpO2 99 I&O: 04/15/20 04/16/20 04/17/20 06:59 06:59 06:59 Intake Total 977 340 240 Output Total 60 60 540 Balance 917 280 -300 Result Diagrams: 04/16/20 16:28 04/16/20 16:28 Phys Exam - Physical Examination Respiratory: clear to auscultation bilateral Cardiovascular: RRR, no significant murmur Musculoskeletal: no edema, pulses present Dx/Plan - Plan Plan: Had nurse wake him up and take BP. It was 98/58, MAP 71. Will continue to monitor
[2020-04-17 04:47] LABS: Anion Gap 15 mmol/L (10-20); BUN (Urea Nitrogen) 69 mg/dL (8.4-25.7); Calc. Creatinine Clearance 13 mL/min (70-130); Calcium 7.8 mg/dL (7.8-10.44); Carbon Dioxide 26 mmol/L (22-29); Chloride 98 mmol/L (98-107); Estimated GFR-MDRD 10; Glucose 109 mg/dL (70-105); Potassium 6.2 mmol/L (3.5-5.1); Sodium 133 mmol/L (136-145)
[2020-04-17 05:05] LABS: Band 8 % (5-11); Eosinophils 3 % (0-10); Hemoglobin 8.8 g/dL (14.0-18.0); Lymphocytes 15 % (21-51); MDiff Complete? YES; Mean Corpuscular Hemoglobin 25.2 pg (27.0-31.0); Mean Corpuscular Volume 81.2 fL (78.0-98.0); Mean Platelet Volume 8.6 fL (7.4-10.4); Metamyelocyte 1 % (0-0); Monocytes 11 % (0-10); Neutrophil 62 % (42-75); Platelet Count 308 thou/uL (130-400); Platelet Morphology Comment Appears Adequate; RBC Distribution Width 16.4 % (11.5-14.5); Red Blood Cell (RBC) Count 3.48 mill/uL (4.70-6.10); White Blood Cell (WBC) Count 11.3 thou/uL (4.8-10.8)
--- NOTE | 2020-04-17 06:56 | PDOC.FM ---
- Subjective Subjective: Pt states he is doing well post-op. He denies CP/dyspnea/palpitations/cough/ edema. He staci numbness/tingling, SANTIZO, N/V, dysuria. He states he has not had a BM since admission, so Miralax will be added to his regimen. He is hungry. Pneumovac A has drained 350mL, B has done 130mL, BLAYNE drain 85mL. All are serosanguinous fluids. Dr. Ceja stated he is stable and can be sent back to floor. Pt's electrolytes and kidney function have been rising. He is due for dialysis for today - I will confirm he is scheduled for it. - Objective Vital Signs & Weight: Vital Signs (12 hours) Temp Pulse Resp Pulse Ox 04/17/20 04:00 97.7 F 04/17/20 00:07 62 16 100 04/17/20 00:00 97.9 F 04/16/20 20:00 98.0 F 97 Weight Admit Weight 83.461 kg Weight 81.9 kg Most Recent Monitor Data Heart Rate from ECG 64 NIBP 116/68 NIBP BP-Mean 84 Respiration from ECG 15 SpO2 98 I&O: 04/15/20 04/16/20 04/17/20 06:59 06:59 06:59 Intake Total 977 340 720 Output Total 60 60 630 Balance 917 280 90 Result Diagrams: 04/17/20 04:10 04/17/20 04:10 Phys Exam - Physical Examination Constitutional: NAD HEENT: moist MMs Neck: supple Respiratory: no wheezing, no rales, no rhonchi Absence of breath sounds on the R Cardiovascular: RRR, no significant murmur Gastrointestinal: soft Musculoskeletal: no edema Neurological: normal sensation, moves all 4 limbs Psychiatric: normal affect, A&O x 3 Skin: no rash Dx/Plan (1) Acute respiratory failure with hypoxia Code(s): J96.01 - ACUTE RESPIRATORY FAILURE WITH HYPOXIA Status: Acute (2) Pleural effusion Code(s): J90 - PLEURAL EFFUSION, NOT ELSEWHERE CLASSIFIED Status: Acute (3) Type II diabetes mellitus Status: Chronic Qualifiers: Diabetes mellitus fci insulin use: with fci use Diabetes mellitus complication status: with kidney complications Diabetes mellitus complication detail: with chronic kidney disease Chronic kidney disease stage : on chronic dialysis Qualified Code(s): E11.22 - Type 2 diabetes mellitus with diabetic chronic kidney disease; N18.6 - End stage renal disease; 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 of insulin; Z99.2 - Dependence on renal dialysis (4) ESRD (end stage renal disease) on dialysis Code(s): N18.6 - END STAGE RENAL DISEASE; Z99.2 - DEPENDENCE ON RENAL DIALYSIS Status: Chronic (5) Hypertension Code(s): I10 - ESSENTIAL (PRIMARY) HYPERTENSION Status: Chronic Qualifiers: Hypertension type: secondary to other renal disorders Qualified Code(s): I15.1 - Hypertension secondary to other renal disorders; N28.89 - Other specified disorders of kidney and ureter (6) Diabetes 1.5, managed as type 1 Code(s): E10.9 - TYPE 1 DIABETES MELLITUS WITHOUT COMPLICATIONS Status: Acute - Plan Plan: Plan: Patient is a 59 yo male who presents with SOB and syncopal episode is found to have a massive right pleural effusion and right lung collapse: Acute hypoxic respiratory failure 2/2 R pleural effusion - CXR and CTA with R massive pleural effusion with complete R lung collapse and L midline shift - s/p tube thoracostomy 04/09. - 2.5L dark fluid drained - Pulm consulted - suspect lung collapse may not improve and may require decortication. Suspect Sarcoid process - CV surg consulted, appreciate recs - Bronch performed 04/11/20. - During bronchoscopy patient experienced significant bronchospasm with subsequent hypoxia and bradycardia and required intubation (04/11). - Extubation performed at 11:00 on 04/13. Patient currently stable on room air with O2 sats in 90s - Effusion Cxs negative x5 days (04/14) - Biopsies and brushings were taken during bronchoscopy - both negative for malignancy, and biopsy negative for fungal organisms as well (04/14) - Sigtenhorst performed thoracoscopy that was converted to R VAT, muscle- sparing thoracotomy, total lung decortication with successful re-expansion, fiberoptic bronchoscopy (04/16) - Prior chest tube removed - 3 chest tubes placed - Pneumovac A drained 350mL, B drained 130mL (04/16) - BLAYNE drain was placed - drained 60mL (04/16) Hyperkalemia, resolved s/p HD - 6.2 > 4.8 > 5.3 (04/16) ESRD on HD - T/Th/Sat Dialysis - Nephro consulted and rec dialysis - Monitor electrolytes, BUN, Cr, fluid status, BPs IDDMII - Hyperglycemic protocol, ACHS - Restarted home meds. HTN - Resumed home medications. Possible history of CHF - Strict I's and O's, cont to monitor - ECHO showed EF 55-60% Syncope, resolved Elevated D-dimer - CTA negative for PE. likely from underlying condition conditions, including ESRD Symptomatic anemia - H/H improved. PCP: GIULIANA [place] Code: Full Diet: Full IVF: SL VTE: SCDs Lines/Tubes: Intubated 04/11/20, Extubated 04/13 Chest tube placement 04/09, removed 04/16 3 new chest tubes placed during surgery 04/16 Arterial line to right wrist 04/11 Central line R femoral 04/11 BLAYNE drain 04/16 Disposition/LOS: Stable s/p R VAT and total lung decortication, transferred to ICU. Continue to monitor respiratory status and kidney function. Continue to encourage working with PT/OT. Anticipate discharge in >48 hours. Addendum - Attending - Attending Attestation Date/Time: 04/17/202229 I personally evaluated the patient and discussed the management with Dr. Chery Dawson I agree with the History, Examination, Assessment and Plan documented above with any addition or exceptions noted below- Patient without complaints. Pain well controlled. Afebrile VSS. A/P: 1) Right lung collapse/atelectasis- s/p thoractomy and decortication- continue care as per CV surgery. Stable to trasnfer to floor. 2) ESRD- continue HD, 3) DM- BG stable; continue current meds.
--- NOTE | 2020-04-17 08:02 | RAD ---
Chest one view HISTORY: Dyspnea. Chest surgery. Follow-up. COMPARISON: 04/16/2020. FINDINGS: Cardiac silhouette is magnified and upper normal in size. Pulmonary vasculature are unremar kable. Mediastinum is midline. Right thoracostomy tubes appear unchanged in position. Postoperative changes of the right chest again demonstrated. Pleural fluid/thickening and a small amount of chest wall gas are unchanged. Left lung remains well-inflated. No evidence of pneumothorax. IMPRESSION : Stable postoperative appearance of the chest.
[2020-04-17] MEDS: Losartan 25 MG TAB PO SCH (08:53)
[2020-04-17] MEDS: Calcium Acetate 667 MG CAP PO SCH ×3 (08:53→18:30)
[2020-04-17] MEDS: NIFEdipine XL 60 MG TAB PO SCH (08:54)
[2020-04-17] MEDS: Carvedilol 25 MG TAB PO SCH (08:54)
[2020-04-17] MEDS: Polyethylene Glycol 3350 17 GM Packet PO SCH (09:01)
[2020-04-17] MEDS: prednisoLONE 1% Ophth Susp 5 ml Bottle EA EYE SCH (09:02)
--- NOTE | 2020-04-17 09:38 | PRG ---
DATE OF SERVICE: 04/17/2020 SUBJECTIVE: Sarthak Thapa is this morning awake, alert, responsive, minimal pain, no shortness of breath. OBJECTIVE: VITAL SIGNS: Pulse 67, blood pressure 120/78, saturation are 98% on room air, and respirations 15. CHEST: Decreased breath sounds at right lung. Left lung, unremarkable. CARDIAC: Normal S1 and S2. No gallops. ABDOMEN: No masses. LABORATORY DATA: White count 11,000. Creatinine is 6, BUN is 69, potassium is 6.2. ASSESSMENT: Chronic renal failure, on dialysis, decortication for hemothorax. No evidence of any malignancy. PT, supportive care. Can probably be transferred out of the ICU any time. Job ID: [id number]
[2020-04-17] MEDS: HumuLIN 70/30 (300 UNITS/3 ML VIAL) SC SCH (10:02)
[2020-04-17] MEDS ORDERED: EPOETIN ALFA-EPBX (ESRD) 10,000 UNIT/ML VIAL SC SCH (11:00)
--- NOTE | 2020-04-17 11:25 | PRG ---
DATE OF SERVICE: 04/17/2020 SUBJECTIVE: A 59-year-old gentleman being seen for end-stage renal disease. The patient denied nausea, vomiting or chest pain. OBJECTIVE: GENERAL: Patient is awake and alert. VITAL SIGNS: Pulse 69, breathing 16, blood pressure 116/79 HEENT: Head normocephalic and atraumatic. Eyes intact, no ulcers. Nose intact, no ulcers. Ears intact, no ulcers. NECK: Supple. No JVD. CHEST: Symmetrical and clear. CARDIOVASCULAR: Shows S1 and S2, no rub, no murmur. GASTROINTESTINAL: Abdomen is soft, bowel sounds positive. EXTREMITIES: Show no edema or ulcers. SKIN: Shows no rash or petechiae. MUSCULOSKELETAL: Shows no joint swelling or stiffness. GENITOURINARY: Shows no Mckenzie or CVA tenderness. NEUROLOGIC: Motor intact. Cranial nerves intact. LABORATORY DATA: Reviewed. ASSESSMENT AND PLAN: 1. Stage 3 chronic kidney disease, plan dialysis. 2. . 3. Anemia, stable. 4. Medication based on GFR appropriate. Job ID: [id number]
[2020-04-17] MEDS: Ketorolac Tromethamine 30 MG/ML VIAL IVP SCH (17:06)
[2020-04-17] MEDS: Atorvastatin Calcium 20 MG TAB PO SCH (19:46)
[2020-04-17] MEDS: Acetaminophen 325 MG TAB PO PRN (23:51)
[2020-04-18 05:45] LABS: Anion Gap 13 mmol/L (10-20); BUN (Urea Nitrogen) 41 mg/dL (8.4-25.7); Calc. Creatinine Clearance 19 mL/min (70-130); Calcium 8.4 mg/dL (7.8-10.44); Carbon Dioxide 29 mmol/L (22-29); Chloride 100 mmol/L (98-107); Estimated GFR-MDRD 15; Glucose 100 mg/dL (70-105); Potassium 4.7 mmol/L (3.5-5.1); Sodium 137 mmol/L (136-145)
--- NOTE | 2020-04-18 05:46 | PDOC.FM ---
- Subjective Subjective: Patient is doing well this morning with no acute concerns. He denies CP, SOB and is requesting to call his . - Objective MAR Reviewed: Yes Vital Signs & Weight: Vital Signs (12 hours) Temp Pulse Resp BP Pulse Ox 04/18/20 03:41 100.1 F H 83 16 141/75 H 93 L 04/18/20 00:00 94 L 04/17/20 23:43 99.2 F 81 16 133/75 94 L 04/17/20 20:00 95 04/17/20 19:51 98.5 F 72 18 119/72 95 04/17/20 19:11 76 12 93 L Weight Admit Weight 83.461 kg Weight 81.193 kg Most Recent Monitor Data Heart Rate from ECG 68 NIBP 96/59 NIBP BP-Mean 71 Respiration from ECG 23 SpO2 94 I&O: 04/16/20 04/17/20 04/18/20 06:59 06:59 06:59 Intake Total 263 202 3673 Output Total 60 630 210 Balance 280 90 810 Result Diagrams: 04/18/20 04:53 04/18/20 04:53 Radiology Reviewed by me: Yes Phys Exam - Physical Examination Constitutional: NAD HEENT: PERRLA, sclera anicteric Neck: no JVD Respiratory: no wheezing, no rales, no rhonchi Breath sounds quieter on L side vs right. 2 chest tubes on R side Cardiovascular: RRR, no significant murmur, no rub Gastrointestinal: soft, non-tender, no distention Musculoskeletal: no edema, pulses present Neurological: moves all 4 limbs Psychiatric: normal affect Skin: no rash, normal turgor Dx/Plan - Plan Plan: Patient is a 59 yo male who presents with SOB and syncopal episode is found to have a massive right pleural effusion and right lung collapse: Acute hypoxic respiratory failure 2/2 R pleural effusion - CXR and CTA with R massive pleural effusion with complete R lung collapse and L midline shift - s/p tube thoracostomy 04/09. - 2.5L dark fluid drained - Pulm consulted - suspect lung collapse may not improve and may require decortication. Suspect Sarcoid process - CV surg consulted, appreciate recs - Bronch performed 04/11/20. - During bronchoscopy patient experienced significant bronchospasm with subsequent hypoxia and bradycardia and required intubation (04/11). - Extubation performed at 11:00 on 04/13. Patient currently stable on room air with O2 sats in 90s - Effusion Cxs negative x5 days (04/14) - Biopsies and brushings were taken during bronchoscopy - both negative for malignancy, and biopsy negative for fungal organisms as well (04/14) - Sigtenhorst performed thoracoscopy that was converted to R VAT, muscle- sparing thoracotomy, total lung decortication with successful re-expansion, fiberoptic bronchoscopy (04/16) - Prior chest tube removed - 3 chest tubes placed - Pneumovac A drained 420mL (04/17), B removed (04/18) - BLAYNE drain was placed ESRD on HD - T//Tue Dialysis - Nephro consulted and rec dialysis - Monitor electrolytes, BUN, Cr, fluid status, BPs IDDMII - Hyperglycemic protocol, ACHS - Restarted home meds. HTN - Resumed home medications. Possible history of CHF - Strict I's and O's, cont to monitor - ECHO showed EF 55-60% Syncope, resolved Elevated D-dimer - CTA negative for PE. likely from underlying condition conditions, including ESRD Symptomatic anemia - H/H improved. Hyperkalemia, resolved s/p HD PCP: [facility] [place] Code: Full Diet: Full IVF: SL VTE: SCDs Lines/Tubes: Intubated 04/11/20, Extubated 04/13 Chest tube placement 04/09, removed 04/16 3 new chest tubes placed during surgery 04/16 1 chest tube removed 04/18 Arterial line to right wrist 04/11 Central line R femoral 04/11 BLAYNE drain 04/16 Disposition/LOS: Stable s/p R VAT and total lung decortication, transferred to floor. Continue to monitor respiratory status and kidney function. Continue to encourage working with PT/OT. Anticipate discharge in >48 hours. Addendum - Attending - Attending Attestation Date/Time: 04/18/20 1420 I personally evaluated the patient and discussed the management with Dr. Salguero I agree with the History, Examination, Assessment and Plan documented above with any addition or exceptions noted below - Patient without complaints. Pain controlled. Afebrile VSS. A/P: 1) Right lung collapse/atelectasis s/p thoractomy and decortication - pleural biopsy pending; continue chest tubes as per CV surgery. 2) ESRD- continue HD. 3) DM- BG stable.
[2020-04-18 06:42] LABS: #Eosinphils 0.6 thou/uL (0.0-0.7); #Lymphocytes 1.3 thou/uL (1.20-3.40); #Monocytes 1.7 thou/uL (0.11-0.59); #Neutrophils 9.5 thou/uL (1.40-6.50); %Basophils 0.1 % (0.0-1.0); %Eosinophils 4.2 % (0.0-10.0); %Lymphocytes 10.1 % (21.0-51.0); %Monocytes 12.7 % (0.0-10.0); %Neutrophils 72.9 % (42.0-75.0); Elliptocytes SLIGHT = 2-5 cells (100X) (0-1/hpf); Hemoglobin 8.3 g/dL (14.0-18.0); Hypochromia SLIGHT = 6-15 cells (100X) (0-5/hpf); MDiff Complete? YES; Mean Corpuscular Hemoglobin 24.3 pg (27.0-31.0); Mean Corpuscular Volume 81.2 fL (78.0-98.0); Platelet Count 289 thou/uL (130-400); RBC Distribution Width 16.8 % (11.5-14.5); Target Cells SLIGHT = 2-5 cells (100X) (0-1/hpf); White Blood Cell (WBC) Count 13.1 thou/uL (4.8-10.8)
--- NOTE | 2020-04-18 07:39 | RAD ---
PORTABLE CHEST: DATE: 04/18/2020. PROVIDED CLINICAL HISTORY: Status post thoracotomy. FINDINGS: Comparison 04/17/2020. Significant interval change with respect to the prior examination is not apparent. IMPRESSION: As above. POS: AMALIA
[2020-04-18] MEDS: Calcium Acetate 667 MG CAP PO SCH ×3 (08:57→18:10)
[2020-04-18] MEDS: Polyethylene Glycol 3350 17 GM Packet PO SCH ×2 (08:57→08:58)
[2020-04-18] MEDS: HumuLIN 70/30 (300 UNITS/3 ML VIAL) SC SCH (08:58)
[2020-04-18] MEDS: prednisoLONE 1% Ophth Susp 5 ml Bottle EA EYE SCH (08:58)
--- NOTE | 2020-04-18 10:35 | PRG ---
DATE OF SERVICE: 04/18/2020 SUBJECTIVE: This morning, he is doing better. He is less short of breath, less cough, less pain. OBJECTIVE: VITAL SIGNS: O2 saturation 97% on room air, pulse 80, blood pressure respiratory rate 18. CHEST: Decreased breath sounds, right lung. Left lung unremarkable. CARDIAC: Normal S1, S2. No gallops. ABDOMEN: No masses. DIAGNOSTIC STUDIES: X-ray shows residual pleural thickening. IMPRESSION: Status post decortication, renal failure continue present treatment. Job ID: [id number]
--- NOTE | 2020-04-18 11:57 | PRG ---
DATE OF SERVICE: 04/18/2020 SUBJECTIVE: A 59-year-old gentleman being seen for end-stage renal disease. The patient denied nausea, vomiting, or chest pain. OBJECTIVE: GENERAL: The patient is awake and alert. VITAL SIGNS: Afebrile, pulse 62, breathing at 16, blood pressure 121/65. HEENT: Head normocephalic and atraumatic. Eyes intact, no ulcers. Nose intact, no ulcers. Ears intact, no ulcers. NECK: Supple. No JVD. CHEST: Symmetrical and clear. CARDIOVASCULAR: Shows S1 and S2, no rub, no murmur. GASTROINTESTINAL: Abdomen is soft, bowel sounds positive. EXTREMITIES: Show no edema or ulcers. SKIN: Shows no rash or petechiae. MUSCULOSKELETAL: Shows no joint swelling or stiffness. GENITOURINARY: Shows no Mckenzie or CVA tenderness. NEUROLOGIC: Motor intact. Cranial nerves intact. LABORATORY DATA: Reviewed. ASSESSMENT AND PLAN: 1. Stage 3 chronic kidney disease. Continue hemodialysis. 2. Hypertension, stable. 3. Anemia, stable. 4. Medication based on GFR, appropriate. Job ID: [id number]
[2020-04-18] MEDS: Acetaminophen 325 MG TAB PO PRN (18:29)
[2020-04-18] MEDS: Atorvastatin Calcium 20 MG TAB PO SCH (20:42)
[2020-04-19] MEDS: hydrALAZINE 20 MG/ML VIAL SLOW IVP PRN ×2 (00:16→04:22)
[2020-04-19] MEDS ORDERED: Carvedilol 25 MG TAB PO SCH (05:15)
[2020-04-19] MEDS: HumaLOG 300 UNITS/3 ML VIAL SC PRN (06:03)
--- NOTE | 2020-04-19 07:09 | PDOC.FM ---
- Subjective Subjective: Patient endorses midsternal, nonradiating, pressure-like pain. Otherwise he ahs no acute concerns. He denies difficulty breathing. - Objective MAR Reviewed: Yes Vital Signs & Weight: Vital Signs (12 hours) Temp Pulse Resp BP BP BP Pulse Ox 04/19/20 05:10 85 151/84 H 04/19/20 04:22 85 181/84 H 04/19/20 04:05 98.7 F 85 16 181/84 H 95 04/19/20 00:16 84 204/98 H 04/18/20 23:53 98.6 F 84 17 204/98 H 100 04/18/20 23:51 80 16 96 04/18/20 19:11 98.4 F 84 16 170/85 H 97 Weight Admit Weight 83.461 kg Weight 84.051 kg Most Recent Monitor Data Heart Rate from ECG 68 NIBP 96/59 NIBP BP-Mean 71 Respiration from ECG 23 SpO2 94 I&O: 04/18/20 04/19/20 04/20/20 06:59 06:59 06:59 Intake Total 1020 Output Total 210 250 Balance 810 -250 Result Diagrams: 04/18/20 04:53 04/18/20 04:53 Phys Exam - Physical Examination Constitutional: NAD HEENT: moist MMs, sclera anicteric Neck: no JVD Respiratory: no wheezing, clear to auscultation bilateral Cardiovascular: RRR, no significant murmur, no rub Gastrointestinal: soft, non-tender, no distention, positive bowel sounds Musculoskeletal: no edema, pulses present Neurological: moves all 4 limbs Psychiatric: normal affect Skin: no rash, normal turgor Dx/Plan - Plan Plan: Patient is a 59 yo male with massive right pleural effusion and right lung collapse s/p decortication: Acute hypoxic respiratory failure 2/2 R pleural effusion - CXR and CTA with R massive pleural effusion with complete R lung collapse and L midline shift - s/p tube thoracostomy 04/09. - 2.5L dark fluid drained - Pulm consulted - suspect lung collapse may not improve and may require decortication. Suspect Sarcoid process - CV surg consulted, appreciate recs - Bronch performed 04/11/20. - During bronchoscopy patient experienced significant bronchospasm with subsequent hypoxia and bradycardia and required intubation (04/11). - Extubation performed at 11:00 on 04/13. Patient currently stable on room air with O2 sats in 90s - Effusion Cxs negative x5 days (04/14) - Biopsies and brushings were taken during bronchoscopy - both negative for malignancy, and biopsy negative for fungal organisms as well (04/14) - Sigtenhorst performed thoracoscopy that was converted to R VAT, muscle- sparing thoracotomy, total lung decortication with successful re-expansion, fiberoptic bronchoscopy (04/16) - Prior chest tube removed - 3 chest tubes placed - Pneumovac A drained 250mL (04/17), B removed (04/18) - BLAYNE drain was placed New onset chest pain - EKG ordered ESRD on HD - T//Tue Dialysis - Nephro consulted and rec dialysis - Monitor electrolytes, BUN, Cr, fluid status, BPs IDDMII - Hyperglycemic protocol, ACHS - Restarted home meds. HTN - Restart home Cozaar 50 mg Possible history of CHF - Strict I's and O's, cont to monitor - ECHO showed EF 55-60% Syncope, resolved Elevated D-dimer - CTA negative for PE. likely from underlying condition conditions, including ESRD Symptomatic anemia - H/H improved. Hyperkalemia, resolved s/p HD PCP: [facility] [place] Code: Full Diet: Full IVF: SL VTE: SCDs Lines/Tubes: Intubated 04/11/20, Extubated 04/13 Chest tube placement 04/09, removed 04/16 3 new chest tubes placed during surgery 04/16 1 chest tube removed 04/18 Arterial line to right wrist 04/11 Central line R femoral 04/11 BLAYNE drain 04/16 Disposition/LOS: Stable s/p R VAT and total lung decortication, transferred to floor. Continue to monitor respiratory status and kidney function. Continue to encourage working with PT/OT. Anticipate discharge in >48 hours. Addendum - Attending - Attending Attestation Date/Time: 04/19/20 2007 I personally evaluated the patient and discussed the management with Dr. Salguero I agree with the History, Examination, Assessment and Plan documented above with any addition or exceptions noted below. Patient doing well still with chest tube need to work on conditioning and looking into rehab placement. Work up still ongoing lung appears re-expanded
[2020-04-19] MEDS: Calcium Acetate 667 MG CAP PO SCH ×3 (08:05→17:21)
[2020-04-19] MEDS: Polyethylene Glycol 3350 17 GM Packet PO SCH (09:33)
[2020-04-19] MEDS: HumuLIN 70/30 (300 UNITS/3 ML VIAL) SC SCH (09:33)
[2020-04-19] MEDS: prednisoLONE 1% Ophth Susp 5 ml Bottle EA EYE SCH (09:50)
--- NOTE | 2020-04-19 10:26 | RAD ---
PORTABLE CHEST: DATE: 04/19/2020. PROVIDED CLINICAL HISTORY: Status post thoracotomy. FINDINGS: Comparison 04/18/2020. Significant interval change with respect to the prior examination is not appare nt. IMPRESSION: As above. POS: AMALIA
--- NOTE | 2020-04-19 12:35 | PRG ---
DATE OF SERVICE: 04/19/2020 SUBJECTIVE: A 59-year-old gentleman being seen for end-stage renal disease. The patient denied nausea, vomiting, or chest pain. OBJECTIVE: GENERAL: The patient is awake and alert. VITAL SIGNS: Afebrile, pulse 82, breathing 16, blood pressure 154/88. HEENT: Head is normocephalic and atraumatic. Eyes intact, no ulcers. Nose intact, no ulcers. Ears intact, no ulcers. Neck: Supple. No JVD. Chest: Symmetrical and clear. Cardiovascular: Shows S1 and S2, no rub, no murmur. Gastrointestinal: Abdomen is soft, bowel sounds positive. Extremities: Show no edema or ulcers. Skin: Shows no rash or petechiae. Musculoskeletal: Shows no joint swelling or stiffness. Genitourinary: Shows no Mckenzie or CVA tenderness. Neurologic: Motor intact. Cranial nerves intact. LABORATORY DATA: Reviewed. ASSESSMENT AND PLAN: 1. Stage 3 chronic kidney disease. Continue hemodialysis. 2. Hypertension, stable. 3. Anemia, stable. 4. Medication based on GFR, appropriate. Job ID: [id number]
[2020-04-19] MEDS: Atorvastatin Calcium 20 MG TAB PO SCH (21:34)
[2020-04-19] MEDS: Carvedilol 25 MG TAB PO SCH (21:34)
[2020-04-19] MEDS: Acetaminophen 325 MG TAB PO PRN (21:36)
--- NOTE | 2020-04-20 06:11 | PDOC.FM ---
- Subjective Subjective: Patient doing well, reports that he is fatigued and is hard to get comfortable with his chest tube. - Objective Vital Signs & Weight: Vital Signs (12 hours) Temp Pulse Resp BP Pulse Ox 04/20/20 04:34 98.9 F 80 16 104/55 L 96 04/19/20 23:57 98.9 F 90 16 153/72 H 94 L 04/19/20 20:02 98.8 F 88 16 163/81 H 96 04/19/20 18:54 97 18 98 Weight Admit Weight 83.461 kg Weight 77.5 kg Most Recent Monitor Data Heart Rate from ECG 68 NIBP 96/59 NIBP BP-Mean 71 Respiration from ECG 23 SpO2 94 I&O: 04/18/20 04/19/20 04/20/20 06:59 06:59 06:59 Intake Total 1020 474 Output Total 210 250 50 Balance 810 -250 424 Result Diagrams: 04/20/20 06:16 04/20/20 06:16 Phys Exam - Physical Examination Constitutional: NAD HEENT: moist MMs, sclera anicteric Neck: no JVD Respiratory: no wheezing, no rales, no rhonchi, clear to auscultation bilateral Breath sounds greater on L than R Cardiovascular: RRR, no significant murmur, no rub Gastrointestinal: soft, non-tender, no distention, positive bowel sounds Musculoskeletal: no edema, pulses present Neurological: moves all 4 limbs Psychiatric: normal affect Skin: no rash, normal turgor Dx/Plan - Plan Plan: Patient is a 59 yo male with massive right pleural effusion and right lung collapse s/p decortication: Acute hypoxic respiratory failure 2/2 R pleural effusion - CXR and CTA with R massive pleural effusion with complete R lung collapse and L midline shift - s/p tube thoracostomy 04/09. - 2.5L dark fluid drained - Pulm consulted - CV surg consulted, appreciate recs - Bronch performed 04/11/20. - During bronchoscopy patient experienced significant bronchospasm with subsequent hypoxia and bradycardia and required intubation (04/11). - Extubation performed at 11:00 on 04/13. Patient currently stable on room air with O2 sats in 90s - Effusion Cxs negative x5 days (04/14) - Biopsies and brushings were taken during bronchoscopy - negative for malignancy and fungal organisms (04/14) - Sigtenhorst performed thoracoscopy that was converted to R VAT, muscle- sparing thoracotomy, total lung decortication with successful re-expansion, fiberoptic bronchoscopy (04/16) - Prior chest tube removed - 3 chest tubes placed - Pneumovac A (R lung), B removed (04/18) - BLAYNE drain was removed 04/18 - SPEP ordered ESRD on HD - T//Sat Dialysis - Nephro consulted and rec dialysis - Monitor electrolytes, BUN, Cr, fluid status, BPs IDDMII - Hyperglycemic protocol, ACHS - Restarted home meds. HTN - Restart home Cozaar 50 mg and nifedipine 60 mg Possible history of CHF - Strict I's and O's, cont to monitor - ECHO showed EF 55-60% Syncope, resolved Elevated D-dimer - CTA negative for PE. likely from underlying condition conditions, including ESRD Symptomatic anemia - H/H improved. Hyperkalemia, resolved s/p HD PCP: [facility] [place] Code: Full Diet: Full IVF: SL VTE: SCDs Lines/Tubes: Intubated 04/11/20, Extubated 04/13 Chest tube placement 04/09, removed 04/16 3 new chest tubes placed during surgery 04/16 1 chest tube removed 04/18 Disposition/LOS: Stable s/p R VAT and total lung decortication, transferred to floor. Continue to monitor respiratory status and kidney function. Continue to encourage working with PT/OT. Anticipate discharge in >48 hours. Addendum - Attending - Attending Attestation Date/Time: 04/20/20 [id number] I personally evaluated the patient and discussed the management with Dr. Salguero I agree with the History, Examination, Assessment and Plan documented above with any addition or exceptions noted below.
[2020-04-20 06:44] LABS: #Eosinphils 0.4 thou/uL (0.0-0.7); #Lymphocytes 1.5 thou/uL (1.20-3.40); #Monocytes 1.5 thou/uL (0.11-0.59); #Neutrophils 10.7 thou/uL (1.40-6.50); %Basophils 0.2 % (0.0-1.0); %Eosinophils 2.9 % (0.0-10.0); %Lymphocytes 10.7 % (21.0-51.0); %Monocytes 10.5 % (0.0-10.0); %Neutrophils 75.8 % (42.0-75.0); Hemoglobin 7.7 g/dL (14.0-18.0); Mean Corpuscular HGB CONC 29.4 g/dL (32.0-36.0); Mean Corpuscular Hemoglobin 24.2 pg (27.0-31.0); Mean Corpuscular Volume 82.3 fL (78.0-98.0); Mean Platelet Volume 9.1 fL (7.4-10.4); Platelet Count 388 thou/uL (130-400); RBC Distribution Width 17.3 % (11.5-14.5); Red Blood Cell (RBC) Count 3.17 mill/uL (4.70-6.10); White Blood Cell (WBC) Count 14.1 thou/uL (4.8-10.8)
[2020-04-20 07:03] LABS: Anion Gap 12 mmol/L (10-20); BUN (Urea Nitrogen) 24 mg/dL (8.4-25.7); Calc. Creatinine Clearance 21 mL/min (70-130); Calcium 8.9 mg/dL (7.8-10.44); Carbon Dioxide 31 mmol/L (22-29); Chloride 101 mmol/L (98-107); Estimated GFR-MDRD 18; Glucose 83 mg/dL (70-105); Potassium 4.8 mmol/L (3.5-5.1); Sodium 139 mmol/L (136-145)
--- NOTE | 2020-04-20 07:49 | RAD ---
PORTABLE CHEST: DATE: 04/20/2020. PROVIDED CLINICAL HISTORY: Status post thoracostomy. FINDINGS: Partial opacification of the lateral aspects of the right hemithorax is redemonstrated. Two right-si ded chest tubes are again seen. The more laterally and inferiorly positions of the 2 chest tubes are incompletely visualized, though the proximal sidehole lucency is potentially superficial to the righ t chest wall based on the location of the tip. Left lung remains clear. Heart and mediastinal silho uette appears unremarkable. No evidence for pneumothorax. IMPRESSION: Chest tube positioning as described. POS: AMALIA
[2020-04-20] MEDS: Carvedilol 25 MG TAB PO SCH ×2 (09:46→21:31)
[2020-04-20] MEDS: Calcium Acetate 667 MG CAP PO SCH ×3 (09:46→17:59)
[2020-04-20] MEDS: HumuLIN 70/30 (300 UNITS/3 ML VIAL) SC SCH (09:47)
[2020-04-20] MEDS: Polyethylene Glycol 3350 17 GM Packet PO SCH (09:47)
[2020-04-20] MEDS: prednisoLONE 1% Ophth Susp 5 ml Bottle EA EYE SCH ×2 (09:49→10:15)
--- NOTE | 2020-04-20 11:19 | PRG ---
DATE OF SERVICE: 04/20/2020 SUBJECTIVE: A 59-year-old gentleman being seen for end-stage renal disease. The patient denies nausea, vomiting, or chest pain. PHYSICAL EXAMINATION: GENERAL: The patient is awake and alert. VITAL SIGNS: Afebrile, pulse 77, breathing at 16, blood pressure 132/83. HEENT: Head normocephalic and atraumatic. Eyes intact, no ulcers. Nose intact, no ulcers. Ears intact, no ulcers. NECK: Supple. No JVD. CHEST: Symmetrical and clear. CARDIOVASCULAR: Shows S1 and S2, no rub, no murmur. GASTROINTESTINAL: Abdomen is soft, bowel sounds positive. EXTREMITIES: Show no edema or ulcers. SKIN: Shows no rash or petechiae. MUSCULOSKELETAL: Shows no joint swelling or stiffness. GENITOURINARY: Shows no Mckenzie or CVA tenderness. NEUROLOGIC: Motor intact. Cranial nerves intact. LABORATORY DATA: Labs show hemoglobin 7.7. ASSESSMENT AND PLAN: 1. Stage 3 chronic kidney disease, plan dialysis tomorrow. 2. Hypertension, stable. 3. Anemia, plan transfusion with dialysis. 4. Medication based on GFR appropriate. Job ID: [id number]
[2020-04-20] MEDS: Acetaminophen 325 MG TAB PO PRN (21:30)
[2020-04-20] MEDS: Atorvastatin Calcium 20 MG TAB PO SCH (21:31)
[2020-04-21] MEDS: hydrALAZINE 20 MG/ML VIAL SLOW IVP PRN (04:00)
[2020-04-21] MEDS: Acetaminophen 325 MG TAB PO PRN (06:10)
[2020-04-21 07:08] LABS: #Eosinphils 0.4 thou/uL (0.0-0.7); #Lymphocytes 1.6 thou/uL (1.20-3.40); #Monocytes 1.6 thou/uL (0.11-0.59); #Neutrophils 11.5 thou/uL (1.40-6.50); %Basophils 0.3 % (0.0-1.0); %Eosinophils 2.7 % (0.0-10.0); %Lymphocytes 10.6 % (21.0-51.0); %Monocytes 10.4 % (0.0-10.0); Hemoglobin 9.8 g/dL (14.0-18.0); Mean Corpuscular HGB CONC 31.9 g/dL (32.0-36.0); Mean Corpuscular Hemoglobin 26.8 pg (27.0-31.0); Mean Corpuscular Volume 84.1 fL (78.0-98.0); Mean Platelet Volume 8.4 fL (7.4-10.4); Platelet Count 393 thou/uL (130-400); RBC Distribution Width 17.2 % (11.5-14.5); Red Blood Cell (RBC) Count 3.66 mill/uL (4.70-6.10); White Blood Cell (WBC) Count 15.1 thou/uL (4.8-10.8)
[2020-04-21 07:21] LABS: Anion Gap 14 mmol/L (10-20); BUN (Urea Nitrogen) 36 mg/dL (8.4-25.7); Calc. Creatinine Clearance 15 mL/min (70-130); Calcium 8.7 mg/dL (7.8-10.44); Carbon Dioxide 27 mmol/L (22-29); Chloride 101 mmol/L (98-107); Estimated GFR-MDRD 12; Glucose 116 mg/dL (70-105); Potassium 5.3 mmol/L (3.5-5.1); Sodium 137 mmol/L (136-145)
[2020-04-21] MEDS ORDERED: Polyethylene Glycol 3350 17 GM Packet PO PRN (08:11)
--- NOTE | 2020-04-21 08:14 | PDOC.FM ---
- Subjective Subjective: Patient doing okay this morning. Had remaining 2 chest tubes pulled yesterday, pressure dressing placed. Patient complains of some heartburn and diarrhea this morning. Was noted to have 6 BMs yesterday, says he does not want to keep taking stool softeners as it has caused him diarrhea in the past. Denies any abdominal pain. - Objective MAR Reviewed: Yes Vital Signs & Weight: Vital Signs (12 hours) Temp Pulse Resp BP BP BP BP 04/21/20 07:52 99.0 F 85 16 172/76 H 04/21/20 07:46 85 18 04/21/20 04:44 81 152/84 H 04/21/20 04:00 79 190/89 H 04/21/20 03:39 98.5 F 79 16 190/89 H 04/21/20 01:13 81 16 04/21/20 00:21 99.2 F 77 18 174/82 H 04/20/20 21:30 Pulse Ox 04/21/20 07:52 95 04/21/20 07:46 100 04/21/20 04:44 04/21/20 04:00 04/21/20 03:39 98 04/21/20 01:13 96 04/21/20 00:21 96 04/20/20 21:30 96 Weight Admit Weight 83.461 kg Weight 77.111 kg Most Recent Monitor Data Heart Rate from ECG 68 NIBP 96/59 NIBP BP-Mean 71 Respiration from ECG 23 SpO2 94 I&O: 04/20/20 04/21/20 04/22/20 06:59 06:59 06:59 Intake Total 474 1414 Output Total 50 Balance 424 1414 Result Diagrams: 04/21/20 06:53 04/21/20 06:53 Phys Exam - Physical Examination Constitutional: NAD HEENT: moist MMs blind Neck: supple, full ROM Respiratory: no wheezing decreased breath sounds on right Cardiovascular: RRR, no significant murmur Gastrointestinal: soft, no distention, positive bowel sounds Musculoskeletal: no edema, pulses present Neurological: normal sensation, moves all 4 limbs Psychiatric: normal affect, A&O x 3 Skin: no rash, normal turgor Dx/Plan (1) Acute respiratory failure with hypoxia Code(s): J96.01 - ACUTE RESPIRATORY FAILURE WITH HYPOXIA Status: Acute (2) Pleural effusion Code(s): J90 - PLEURAL EFFUSION, NOT ELSEWHERE CLASSIFIED Status: Acute (3) Type II diabetes mellitus Status: Chronic Qualifiers: Diabetes mellitus intermediate project manager insulin use: with mcfp use Diabetes mellitus complication status: with kidney complications Diabetes mellitus complication detail: with chronic kidney disease Chronic kidney disease stage : on chronic dialysis Qualified Code(s): E11.22 - Type 2 diabetes mellitus with diabetic chronic kidney disease; N18.6 - End stage renal disease; Z79.4 - intermediate project manager (current) use of insulin; Z99.2 - Dependence on renal dialysis (4) ESRD (end stage renal disease) on dialysis Code(s): N18.6 - END STAGE RENAL DISEASE; Z99.2 - DEPENDENCE ON RENAL DIALYSIS Status: Chronic (5) Hypertension Code(s): I10 - ESSENTIAL (PRIMARY) HYPERTENSION Status: Chronic Qualifiers: Hypertension type: secondary to other renal disorders Qualified Code(s): I15.1 - Hypertension secondary to other renal disorders; N28.89 - Other specified disorders of kidney and ureter - Plan Plan: Patient is a 59 yo male with massive right pleural effusion and right lung collapse s/p decortication: Acute hypoxic respiratory failure 2/2 R pleural effusion - CXR and CTA with R massive pleural effusion with complete R lung collapse and L midline shift - s/p tube thoracostomy 04/09. - 2.5L dark fluid drained - Pulm consulted, appreciate recs - CV surg consulted, appreciate recs - Bronch performed 04/11/20. - During bronchoscopy patient experienced significant bronchospasm with subsequent hypoxia and bradycardia and required intubation (04/11). - Extubation performed at 11:00 on 04/13. Patient currently stable on room air with O2 sats in 90s - Effusion Cxs negative x5 days (04/14) - Biopsies and brushings were taken during bronchoscopy - negative for malignancy and fungal organisms (04/14) - Sigtenhorst performed thoracoscopy that was converted to R VAT, muscle- sparing thoracotomy, total lung decortication with successful re-expansion, fiberoptic bronchoscopy (04/16) - Prior chest tube removed - 3 chest tubes placed - Pneumovac A (R lung), B removed (04/18), remaining chest tubes removed 04/20 - BLAYNE drain was removed 04/18 - SPEP ordered ESRD on HD - T//Tue Dialysis - Nephro consulted and rec dialysis - Monitor electrolytes, BUN, Cr, fluid status, BPs IDDMII - Hyperglycemic protocol, ACHS - Restarted home meds. HTN - Restart home Cozaar 50 mg and nifedipine 60 mg today Possible history of CHF - Strict I's and O's, cont to monitor - ECHO showed EF 55-60% Syncope, resolved Elevated D-dimer - CTA negative for PE. likely from underlying condition conditions, including ESRD Symptomatic anemia - H/H improved. Hyperkalemia, resolved s/p HD Social: CM consulted for rehab placement. Post-acute screening placed. PT/OT placed. PCP: [facility] [place] Code: Full Diet: Renal IVF: SL VTE: SCDs Lines/Tubes: Intubated 04/11/20, Extubated 04/13 Chest tube placement 04/09, removed 04/16 3 new chest tubes placed during surgery 04/16 1 chest tube removed 04/18 2 chest tube removed 04/20 Disposition/LOS: Stable, s/p R VAT and total lung decortication. Continue to monitor respiratory status and kidney function. Continue to encourage working with PT/OT. CM consulted for placement. Anticipate discharge in >48 hours. Addendum - Attending - Attending Attestation Date/Time: 04/21/20 [id number] I personally evaluated the patient and discussed the management with Dr. Dupont. I agree with the History, Examination, Assessment and Plan documented above with any addition or exceptions noted below. Patient doing well this morning. Awaiting rehab approval. He is off O2 and reports having no complaints. He is having some labile BP that I am hoping that resuming home meds will fix but will need to monitor for hypotension. Workup for cause of his massive effusion requiring VATS and decortication has so far been negative.
--- NOTE | 2020-04-21 08:21 | RAD ---
PORTABLE CHEST 1 VIEW: Date: 04/21/2020 Time: 0455 hours HISTORY: Status post thoracotomy. COMPARISON: Previous day. FINDINGS/IMPRESSION: Right-sided chest tubes have been removed in the interim. Heart size is stable. Incomplete opacificat ion of the right hemithorax again seen. The left lung is unremarkable. No pneumothoraces are seen. POS: MZA
[2020-04-21] MEDS: Carvedilol 25 MG TAB PO SCH ×2 (10:13→19:59)
[2020-04-21] MEDS: HumuLIN 70/30 (300 UNITS/3 ML VIAL) SC SCH (10:13)
[2020-04-21] MEDS: prednisoLONE 1% Ophth Susp 5 ml Bottle EA EYE SCH ×2 (10:14→10:15)
[2020-04-21] MEDS: Calcium Acetate 667 MG CAP PO SCH ×3 (10:14→18:19)
[2020-04-21] MEDS: NIFEdipine XL 60 MG TAB PO SCH (10:18)
[2020-04-21] MEDS: Losartan 25 MG TAB PO SCH (10:18)
--- NOTE | 2020-04-21 11:44 | PRG ---
DATE OF SERVICE: 04/21/2020 SUBJECTIVE: Patient was seen and examined at bedside and overnight events noted. Patient denies any shortness of breath or chest pain or palpitation. No history of nausea or vomiting or diarrhea or fever or chills or cramps. OBJECTIVE: GENERAL: This is a well-built male, in no apparent distress. VITAL SIGNS: Temperature 99.0. Heart rate 85. Respiratory rate 16. Blood pressure 172/76. HEENT: Atraumatic, normocephalic. Oral mucosa is moist. NECK: Supple. CARDIOVASCULAR: S1, S2 heard. Rate and rhythm regular. RESPIRATORY: Clear to auscultation. GASTROINTESTINAL: Abdomen is soft. MUSCULOSKELETAL: No tenderness. No edema. DERMATOLOGIC: No skin rash. NEUROLOGIC: Alert and awake and oriented x3. No focal neurologic deficits. Moving all the extremities. PSYCHIATRIC: Mood and affect normal. LABORATORY DATA: Potassium 5.3, BUN is 36, and creatinine is 5.7. ASSESSMENT AND PLAN: 1. End-stage renal disease. Continue on dialysis. 2. History of hypertension. 3. Anemia of chronic disease. 4. Edema, controlled. 5. Pleural effusion. 6. Acute hypoxic respiratory failure, extubated. Continue dialysis as tolerated on Tuesday, , and Tuesday. Limit potassium intake. Job ID: [id number]
--- NOTE | 2020-04-21 14:27 | EKG ---
Test Reason : URGENT Blood Pressure : / mmHG Vent. Rate : 085 BPM Atrial Rate : 085 BPM P-R Int : 130 ms QRS Dur : 088 ms QT Int : 364 ms P-R-T Axes : 055 015 078 degrees QTc Int : 433 ms Normal sinus rhythm Cannot rule out Anterior infarct , age undetermined Abnormal ECG When compared with ECG of 03-AUG-2018 22:15, No significant change was found Confirmed by KYLEE BONNER (2) on 04/21/2020 2:26:50 PM Referred By: DWAYNE Confirmed By:KYLEE BONNER
[2020-04-21] MEDS: Atorvastatin Calcium 20 MG TAB PO SCH (19:59)
--- NOTE | 2020-04-22 06:26 | PDOC.FM ---
- Subjective Subjective: Patient doing okay this morning, awaiting placement at rehab facility. No complaints or overnight events. Due to receive dialysis this morning. - Objective MAR Reviewed: Yes Vital Signs & Weight: Vital Signs (12 hours) Temp Pulse Resp BP BP Pulse Ox 04/22/20 04:15 98.0 F 85 16 153/79 H 97 04/22/20 00:26 89 20 98 04/22/20 00:07 99.5 F 86 18 157/80 H 97 04/21/20 19:58 98.3 F 88 16 133/73 98 04/21/20 18:38 86 18 96 Weight Admit Weight 83.461 kg Weight 77.111 kg Most Recent Monitor Data Heart Rate from ECG 68 NIBP 96/59 NIBP BP-Mean 71 Respiration from ECG 23 SpO2 94 I&O: 04/20/20 04/21/20 04/22/20 06:59 06:59 06:59 Intake Total 474 1414 500 Output Total 50 200 Balance 424 1414 300 Result Diagrams: 04/21/20 06:53 04/22/20 06:37 Phys Exam - Physical Examination Constitutional: NAD HEENT: moist MMs, sclera anicteric blind Neck: no JVD, supple Respiratory: no wheezing decreased breath sounds on right side Cardiovascular: RRR, no significant murmur Gastrointestinal: soft, positive bowel sounds Musculoskeletal: no edema, pulses present Neurological: moves all 4 limbs Psychiatric: normal affect Skin: no rash, normal turgor Dx/Plan (1) Acute respiratory failure with hypoxia Code(s): J96.01 - ACUTE RESPIRATORY FAILURE WITH HYPOXIA Status: Acute (2) Pleural effusion Code(s): J90 - PLEURAL EFFUSION, NOT ELSEWHERE CLASSIFIED Status: Acute (3) Type II diabetes mellitus Status: Chronic Qualifiers: Diabetes mellitus senior living insulin use: with intermodal customer service use Diabetes mellitus complication status: with kidney complications Diabetes mellitus complication detail: with chronic kidney disease Chronic kidney disease stage : on chronic dialysis Qualified Code(s): E11.22 - Type 2 diabetes mellitus with diabetic chronic kidney disease; N18.6 - End stage renal disease; Z79.4 - intermediate accountant (current) use of insulin; Z99.2 - Dependence on renal dialysis (4) ESRD (end stage renal disease) on dialysis Code(s): N18.6 - END STAGE RENAL DISEASE; Z99.2 - DEPENDENCE ON RENAL DIALYSIS Status: Chronic (5) Hypertension Code(s): I10 - ESSENTIAL (PRIMARY) HYPERTENSION Status: Chronic Qualifiers: Hypertension type: secondary to other renal disorders Qualified Code(s): I15.1 - Hypertension secondary to other renal disorders; N28.89 - Other specified disorders of kidney and ureter - Plan Plan: Patient is a 59 yo male with massive right pleural effusion and right lung collapse s/p decortication: Acute hypoxic respiratory failure 2/2 R pleural effusion - CXR and CTA with R massive pleural effusion with complete R lung collapse and L midline shift - s/p tube thoracostomy 04/09. - 2.5L dark fluid drained - Pulm consulted, appreciate recs - CV surg consulted, appreciate recs - Bronch performed 04/11/20. - During bronchoscopy patient experienced significant bronchospasm with subsequent hypoxia and bradycardia and required intubation (04/11). - Extubation performed at 11:00 on 04/13. Patient currently stable on room air with O2 sats in 90s - Effusion Cxs negative x5 days (04/14) - Biopsies and brushings were taken during bronchoscopy - negative for malignancy and fungal organisms (04/14) - Sigtenhorst performed thoracoscopy that was converted to R VAT, muscle- sparing thoracotomy, total lung decortication with successful re-expansion, fiberoptic bronchoscopy (04/16) - Prior chest tube removed - 3 chest tubes placed - Pneumovac A (R lung), B removed (04/18), remaining chest tubes removed 04/20 - BLAYNE drain was removed 04/18 - SPEP ordered ESRD on HD - T//Sat Dialysis - Nephro consulted and rec dialysis - Monitor electrolytes, BUN, Cr, fluid status, BPs IDDMII - Hyperglycemic protocol, ACHS - Restarted home meds. HTN - Restart home Cozaar 50 mg and nifedipine 60 mg on 04/21 Possible history of CHF - Strict I's and O's, cont to monitor - ECHO showed EF 55-60% Syncope, resolved Elevated D-dimer - CTA negative for PE. likely from underlying condition conditions, including ESRD Symptomatic anemia - H/H improved. Hyperkalemia, resolved s/p HD Social: CM consulted for rehab placement. Post-acute screening placed. PT/OT placed. PCP: [facility] [place] Code: Full Diet: Renal IVF: SL VTE: SCDs Lines/Tubes: Intubated 04/11/20, Extubated 04/13 Chest tube placement 04/09, removed 04/16 3 new chest tubes placed during surgery 04/16 1 chest tube removed 04/18 2 chest tube removed 04/20 Disposition/LOS: Stable, s/p R VAT and total lung decortication. Continue to monitor respiratory status and kidney function. Continue to encourage working with PT/OT. CM consulted for rehab placement. Anticipate discharge in <48 hours. Addendum - Attending - Attending Attestation Date/Time: 04/22/20 1665 I personally evaluated the patient and discussed the management with Dr. Dupont. I agree with the History, Examination, Assessment and Plan documented above with any addition or exceptions noted below. Patient doing well. Respiratory status stable. Awaiting placement and then likely stable for discharge once accepted.
[2020-04-22 07:04] LABS: Anion Gap 16 mmol/L (10-20); BUN (Urea Nitrogen) 44 mg/dL (8.4-25.7); Calc. Creatinine Clearance 13 mL/min (70-130); Calcium 8.5 mg/dL (7.8-10.44); Carbon Dioxide 27 mmol/L (22-29); Chloride 101 mmol/L (98-107); Estimated GFR-MDRD 9; Glucose 121 mg/dL (70-105); Sodium 138 mmol/L (136-145)
--- NOTE | 2020-04-22 08:25 | RAD ---
EXAM: CHEST ONE VIEW HISTORY: Post thoracotomy COMPARISON: 04/21/2020 FINDINGS: The cardiac silhouette and pulmonary vasculature is within normal limits. Pleural-based opacification along the right lateral chest extending from the apex to right lung base is again seen with parenchymal and interstitial opacities again seen throughout the remainder of the right lung. Left carmela ng is clear aside from minimal patchy density lateral left lung base which could be related to mild volume loss. No other interval change. IMPRESSION: Persistent opacification right hemithorax with minimal patchy density lateral left lung base.
[2020-04-22] MEDS: Calcium Acetate 667 MG CAP PO SCH ×2 (11:14→15:53)
[2020-04-22] MEDS ORDERED: diphenhydrAMINE 50 MG/ML VIAL IVP SCH (12:00)
--- NOTE | 2020-04-22 13:50 | PQF ---
[employer] Data [employer] Architect Crystal Reports Winform ViewerBOOKER,BRANDIE RYAN [id number] SURG [id number] CLINICAL DOCUMENTATION IMPROVEMENT CLARIFICATION FORM: ICD-10 Updated PLEASE DO AN ADDENDUM TO THE PROGRESS NOTE WITH ANY DOCUMENTATION UPDATES OR ADDITIONS AND CARRY THROUGH TO DC SUMMARY. THANK YOU. DATE: 04/22/2020 ATTN:DR. Ananda CORONADO Please exercise your independent, professional judgment in responding to the clarification form. Clinical indicators are provided on the bottom of this form for your review. Please check appropriate box(s): [ ] Acute blood loss anemia [ ] Post-op anemia related to acute blood loss [ ] Chronic Anemia: [ ] Blood loss [ ] Hemolytic [ ] Simple [ ] Other [ x ] Anemia of Chronic Disease (please specify) ___ESRD on HD [ ] Other diagnosis [ ] Unable to determine In addition, please specify: Present on Admission (POA): [x ] Yes [ ] No [ ] Unable to determine For continuity of documentation, please document condition throughout progress notes and discharge summary. Thank You. CLINICAL INDICATORS - SIGNS / SYMPTOMS / LABS / RESULTS AND LOCATION IN EMR 04/09 HgB 7.3 04/20 HgB 7.7 04/08 H&P ( IVAN) SYMPTOMATIC ANEMIA, HGB 7.0, SYNCOPAL EPISODE, NO S/S OF ACUTE BLOOD LOSS AT THIS TIME, TYPE AND CROSS WITH TRANSFUSION OF 1U PRBC WILL MONITOR. 04/09 PN (KROFT) HE IS VISIBLY SHORT OF BREATH, DIAGNOSTIC AND THERAPEUTIC THORACENTESIS PERFORMED THIS MORNING. DARK OLD BLOODY FLUID WAS OBTAINED AND WAS DIFFICULT TO ASPIRATE. PT MAY NEED CHEST TUBE. 04/16 OP NOTE (AALIYAH) A YANKAUER SUCTION WAS USED TO ASPIRATE A MODEST AMOUNT OF BLOODY FLUID 04/20 PN (VELAZQUEZ) A/P: 3. ANEMIA, PLAN TRANSFUSION WITH DIALYSIS RISK: DX PLEURAL EFFUSION , SYMPTOMATIC ANEMIA ( IVONNE/PN )04/20, RECENT SX THORACOSCOPY W THORACOTOMY W TOTAL LUNG DECORTICATION (04/16) TREATMENT: SERIAL LABS (04/09-PRESENT) BLOOD TRANSFUSION ( 04/09, 04/20) THANK YOU! NINO (This form is maintained as a part of the permanent medical record) 2014 [employer] All Rights Reserved [email or web address]
--- NOTE | 2020-04-22 14:12 | PRG ---
DATE OF SERVICE: 04/22/2020 SUBJECTIVE: Patient was seen and examined at bedside and overnight events noted. Patient denies any shortness of breath or chest pain or palpitation. No history of nausea or vomiting or diarrhea or fever or chills or cramps. OBJECTIVE: GENERAL: This is a well-built male, in no apparent distress. VITAL SIGNS: Temperature 99.6. Heart rate 82. Respiratory rate 18. Blood pressure 171/79. HEENT: Atraumatic, normocephalic. Oral mucosa is moist. NECK: Supple. CARDIOVASCULAR: S1, S2 heard. Rate and rhythm regular. RESPIRATORY: Clear to auscultation. GASTROINTESTINAL: Abdomen is soft. MUSCULOSKELETAL: No tenderness. No edema. DERMATOLOGIC: No skin rash. NEUROLOGIC: Alert and awake and oriented x3. No focal neurologic deficits. Moving all the extremities. PSYCHIATRIC: Mood and affect normal. LABORATORY DATA: Potassium 6.0, BUN is 44, and creatinine is 7.2. ASSESSMENT AND PLAN: 1. End-stage renal disease. Plan for dialysis. The patient is seen during dialysis, tolerating well. 2. Hyperkalemia. We will have dialysis. 3. Edema, controlled. 4. Hypertension. 5. Anemia of chronic disease. Continue dialysis, seen during dialysis, tolerating well. Job ID: [id number]
[2020-04-22] MEDS: Carvedilol 25 MG TAB PO SCH ×2 (14:52→20:05)
[2020-04-22] MEDS: HumuLIN 70/30 (300 UNITS/3 ML VIAL) SC SCH (15:42)
[2020-04-22] MEDS: NIFEdipine XL 60 MG TAB PO SCH (15:51)
[2020-04-22] MEDS: Losartan 25 MG TAB PO SCH (15:51)
[2020-04-22] MEDS: prednisoLONE 1% Ophth Susp 5 ml Bottle EA EYE SCH ×2 (15:52)
[2020-04-22] MEDS: Atorvastatin Calcium 20 MG TAB PO SCH (20:05)
[2020-04-23] MEDS ORDERED: diphenhydrAMINE 25 MG CAP PO PRN (04:29)
[2020-04-23] MEDS ORDERED: diphenhydrAMINE 50 MG/ML VIAL IVP SCH (04:45)
[2020-04-23 05:20] VITALS: BMI 21.7
--- NOTE | 2020-04-23 06:21 | PDOC.FM ---
- Subjective Subjective: Patient is a 59 yo male with massive right pleural effusion and right lung collapse s/p decortication Overnight, no acute events. Patient was complaining of groin discomfort and nurse states he went to dialysis with a dirty diaper and the skin around the groin was irritated and it looked like the patient had been scratching. Benadryl and Calazime lotion was given and patient noted resolution of symptoms. Today, patient is resting comfortably in bed. No complaints. Denies SOB, CP, abdominal pain, SANTIZO, edema. - Objective MAR Reviewed: Yes Vital Signs & Weight: Vital Signs (12 hours) Temp Pulse Resp BP BP BP Pulse Ox 04/23/20 04:31 99.2 F 91 16 155/90 H 95 04/23/20 01:06 88 18 98 04/23/20 01:00 159/80 H 04/23/20 00:14 99.3 F 95 16 137/101 H 97 04/22/20 21:30 99.4 F 04/22/20 20:30 100.2 F H 95 16 138/77 97 04/22/20 19:30 91 18 97 Weight Admit Weight 83.461 kg Weight 76.7 kg Most Recent Monitor Data Heart Rate from ECG 68 NIBP 96/59 NIBP BP-Mean 71 Respiration from ECG 23 SpO2 94 I&O: 04/21/20 04/22/20 04/23/20 06:59 06:59 06:59 Intake Total 1414 500 360 Output Total 200 Balance 1414 300 360 Result Diagrams: 04/21/20 06:53 04/22/20 06:37 Phys Exam - Physical Examination Constitutional: NAD HEENT: sclera anicteric Neck: full ROM Respiratory: no wheezing, clear to auscultation bilateral Cardiovascular: RRR, no significant murmur Gastrointestinal: soft, no distention, positive bowel sounds Musculoskeletal: no edema, pulses present Neurological: moves all 4 limbs Psychiatric: normal affect, A&O x 3 -: endorses "irriation" in his groin which is improved, exam deffered Dx/Plan - Plan Plan: Acute hypoxic respiratory failure 2/2 R pleural effusion - CXR and CTA with R massive pleural effusion with complete R lung collapse and L midline shift - s/p tube thoracostomy 04/09. - 2.5L dark fluid drained - Pulm consulted, appreciate recs - CV surg consulted, appreciate recs - Bronch performed 04/11/20. - During bronchoscopy patient experienced significant bronchospasm with subsequent hypoxia and bradycardia and required intubation (04/11). - Extubation performed at 11:00 on 04/13. Patient currently stable on room air with O2 sats in 90s - Effusion Cxs negative x5 days (04/14) - Biopsies and brushings were taken during bronchoscopy - negative for malignancy and fungal organisms (04/14) - Sigtenhorst performed thoracoscopy that was converted to R VAT, muscle- sparing thoracotomy, total lung decortication with successful re-expansion, fiberoptic bronchoscopy (04/16) - Prior chest tube removed - 3 chest tubes placed - Pneumovac A (R lung), B removed (04/18), remaining chest tubes removed 04/20 - BLAYNE drain was removed 04/18 - SPEP ordered, results pending ESRD on HD - T//Tue Dialysis - Nephro consulted and rec dialysis - Monitor electrolytes, BUN, Cr, fluid status, BPs IDDMII - Hyperglycemic protocol, ACHS - Restarted home meds. HTN - Restart home Cozaar 50 mg and nifedipine 60 mg on 04/21 Possible history of CHF - Strict I's and O's, cont to monitor - ECHO showed EF 55-60% Syncope, resolved Elevated D-dimer - CTA negative for PE. likely from underlying condition conditions, including ESRD Symptomatic anemia - H/H improved. Hyperkalemia, resolved s/p HD Social: CM consulted for rehab placement. Post-acute screening placed. PT/OT placed. PCP: GIULIANA Foreston Code: Full Diet: Renal IVF: SL VTE: SCDs Lines/Tubes: Intubated 04/11/20, Extubated 04/13 Chest tube placement 04/09, removed 04/16 3 new chest tubes placed during surgery 04/16 1 chest tube removed 04/18 2 chest tube removed 04/20 Disposition/LOS: Stable, s/p R VAT and total lung decortication. Continue to monitor respiratory status and kidney function. Continue to encourage working with PT/OT. CM consulted for rehab placement. Anticipate discharge in <48 hours. Addendum - Attending - Attending Attestation Date/Time: 04/23/20 1205 I personally evaluated the patient and discussed the management with Dr. Garcia. I agree with the History, Examination, Assessment and Plan documented above with any addition or exceptions noted below. Patient doing well, resting comfortably. He is stable for discharge and has been accepted for rehab.
[2020-04-23] MEDS: HumuLIN 70/30 (300 UNITS/3 ML VIAL) SC SCH (08:44)
[2020-04-23] MEDS: prednisoLONE 1% Ophth Susp 5 ml Bottle EA EYE SCH ×2 (08:44)
[2020-04-23] MEDS: Calcium Acetate 667 MG CAP PO SCH ×3 (08:45→16:51)
[2020-04-23] MEDS: Carvedilol 25 MG TAB PO SCH (08:45)
[2020-04-23] MEDS: Losartan 25 MG TAB PO SCH (08:45)
[2020-04-23] MEDS: NIFEdipine XL 60 MG TAB PO SCH (08:45)
--- NOTE | 2020-04-23 12:14 | PRG ---
DATE OF SERVICE: 04/23/2020 SUBJECTIVE: Patient was seen and examined at bedside and overnight events noted. Patient denies any shortness of breath or chest pain or palpitation. No history of nausea or vomiting or diarrhea or fever or chills or cramps. OBJECTIVE: GENERAL: This is well-built male in no apparent distress. VITAL SIGNS: Temperature 99.2. Pulse 89. Respiratory rate 14. Blood pressure 143/80. HEENT: Atraumatic, normocephalic. Oral mucosa is moist. NECK: Supple. CARDIOVASCULAR: S1, S2 heard. Rate and rhythm regular. RESPIRATORY: Clear to auscultation. GASTROINTESTINAL: Abdomen is soft. MUSCULOSKELETAL: No tenderness. No edema. DERMATOLOGIC: No skin rash. NEUROLOGIC: Alert and awake and oriented x3. No focal neurologic deficits. Moving all the extremities. PSYCHIATRIC: Mood and affect normal. LABORATORY DATA: Not done. ASSESSMENT AND PLAN: 1. End-stage renal disease. Continue dialysis on Tuesday, , and Tuesday. 2. Hyperkalemia. 3. Edema. 4. Hypertension. 5. Anemia of chronic disease. 6. Continue dialysis on Tuesday, , and Tuesday. Limit potassium intake. Job ID: [id number]
[2020-04-23] MEDS: Acetaminophen 325 MG TAB PO PRN (12:22)
--- NOTE | 2020-04-23 13:40 | RAD ---
PORTABLE CHEST 1 VIEW: Date: 04/23/2020 Time: 1322 hours HISTORY: Status post thoracotomy. COMPARISON: Previous day. FINDINGS/IMPRESSION: No significant interval change is seen since the previous day's exam. POS: [facility]
[2020-04-23 16:17] VITALS: BP 124/73; TEMP 99
--- NOTE | 2020-04-23 20:13 | DIS ---
DATE OF ADMISSION: 04/09/2020 DATE OF DISCHARGE: 04/23/2020 RESIDENT: Nori Garcia MD ADMITTING ATTENDING: Marianna Harrington MD DISCHARGE ATTENDING: Rey Nieves MD CONSULTS: 1. Cardiovascular Surgery. 2. Nephrology. 3. Pulmonology. 4. PT/OT. 5. Case Management. PROCEDURES: 2 chest tubes, a bronchoscopy, an arterial line, a femoral central line, lung biopsy, brush sample and fluid cultures, VAT procedure, muscle-sparing thoracotomy and total lung decortication. PRIMARY DIAGNOSES: Acute hypoxic respiratory failure secondary to a right pleural effusion. SECONDARY DIAGNOSES: End-stage renal disease on hemodialysis; insulin-dependent diabetes type 2; hypertension; syncope; elevated D-dimer; symptomatic anemia; hyperkalemia which is resolved. DISCHARGE MEDICATIONS: Prednisolone Acetate eyedrops 1 drop each eye daily, Carvedilol, Loperamide 2mg PRN, Simvastatin 40mg QHS, Calcium Acetate 2668mg TID AC, Losartan 50mg daily, Nifedipine 60mg daily, Refresh Optive Advanced drops 1-2 drops each eye, Aspirin 81mg daily, Humulin 70/30 20U subcutaneous daily Discontinued medications: Dulcolax HISTORY OF PRESENT ILLNESS/HOSPITAL COURSE: The patient is a 59-year-old male with a past medical history of type 2 diabetes; hypertension; legal blindness; end-stage renal disease, on hemodialysis; and CVA with left-sided weakness, who presented on 04/09/2020 to dialysis and had a syncopal event and low blood pressure. He was then given a bolus of IV fluids and sent home. At home, he had another syncopal episode and then came to the ED. In the ED, he had a CT of the head done which was negative. Chest x-ray showed a right pleural effusion with a left midline shift. At this time, he was hypoxic on room air and was put on 2 L of oxygen and was saturating 93%. He was diagnosed with acute hypoxic respiratory failure secondary to pleural effusion. He had a diagnostic and therapeutic thoracocentesis on 04/09 which drained 2.5 L of dark blood and a chest tube was put in at that time. On 04/09, he was also found to be anemic and was given a unit of packed red blood cells. On 04/11, he had a bronchoscopy in which there were complications where he had a significant bronchospasm with subsequent hypoxia and bradycardia, which led to him being intubated. On 04/11, his art line and central line was placed. On 04/13, he was extubated. On 04/14, his lung biopsy, brush sample, and fluid cultures from this thoracocentesis came back; all were negative. There was no evidence of malignancy or any organisms. On 04/16, he went to surgery with Cardiothoracic Surgery and had right VAT with muscle-sparing thoracotomy and pleural lung decortication. At that time, his initial chest tube was removed and 3 new chest tubes were placed along with a BLAYNE drain. His BLAYNE drain was pulled on 04/18 along with one of his new chest tubes and the remaining 2 chest tubes were removed on 04/20. The rest of patient's hospitalization had been unremarkable. He has been saturating well on room air and has been working with PT and OT. He is going to a Swing Bed to regain his strength and mobility and plan is to discharge home after that. DISPOSITION: Stable. DISCHARGE INSTRUCTIONS: Location: [facility] Bed. Diet: Renal diet with a 1500 mL fluid restriction. Activity: As tolerated. Followup: Follow up with primary care doctor in 3 to 4 weeks. Job ID: [id number] [facility]
[2020-04-24 16:14] LABS: A/G Ratio 0.8 (0.7-1.7); Albumin 2.4 g/dL (2.9-4.4); Alpha 1 0.4 g/dL (0.0-0.4); Alpha 2 0.8 g/dL (0.4-1.0); Beta 0.9 g/dL (0.7-1.3); M-Spike 0.3 g/dL (Not Observed); Protein Electrophoresis Intrp Note: (.)
== END 2020-04-23 18:04 | disposition swing bed (61) | DRG 163 ==
LOC: 2NO 18:41 → CCU 04-11 09:26 → T4-A 04-14 16:03 → CCU 04-16 17:02 → SURG A 04-17 16:12
PROVIDERS: ADMIT Student in an Organized Health Care Education/Training Program; ATTEND Student in an Organized Health Care Education/Training Program
PROC: 0W993ZZ Drainage of Right Pleural Cavity, Percutaneous Approach (ICD-10-PCS; 2020-04-09)
PROC: 0BBD8ZX Excision of Right Middle Lung Lobe, Via Natural or Artificial Opening Endoscopic, Diagnostic (ICD-10-PCS; 2020-04-09)
PROC: 0W9930Z Drainage of Right Pleural Cavity with Drainage Device, Percutaneous Approach (ICD-10-PCS; 2020-04-09)
PROC: 30233N1 Transfusion of Nonautologous Red Blood Cells into Peripheral Vein, Percutaneous Approach (ICD-10-PCS; 2020-04-09)
PROC: 5A1D70Z Performance of Urinary Filtration, Intermittent, Less than 6 Hours Per Day (ICD-10-PCS; 2020-04-10)
PROC: 0BH18EZ Insertion of Endotracheal Airway into Trachea, Via Natural or Artificial Opening Endoscopic (ICD-10-PCS; 2020-04-11)
PROC: 0BD58ZX Extraction of Right Middle Lobe Bronchus, Via Natural or Artificial Opening Endoscopic, Diagnostic (ICD-10-PCS; 2020-04-11)
PROC: 0BD48ZX Extraction of Right Upper Lobe Bronchus, Via Natural or Artificial Opening Endoscopic, Diagnostic (ICD-10-PCS; 2020-04-11)
PROC: 06HY33Z Insertion of Infusion Device into Lower Vein, Percutaneous Approach (ICD-10-PCS; 2020-04-11)
PROC: 3E033XZ Introduction of Vasopressor into Peripheral Vein, Percutaneous Approach (ICD-10-PCS; 2020-04-11)
PROC: 5A12012 Performance of Cardiac Output, Single, Manual (ICD-10-PCS; 2020-04-11)
PROC: 5A1945Z Respiratory Ventilation, 24-96 Consecutive Hours (ICD-10-PCS; 2020-04-11)
PROC: 0BNC0ZZ Release Right Upper Lung Lobe, Open Approach (ICD-10-PCS; principal; 2020-04-16)
PROC: 0WJC4ZZ Inspection of Mediastinum, Percutaneous Endoscopic Approach (ICD-10-PCS; 2020-04-16)
PROC: 0W9900Z Drainage of Right Pleural Cavity with Drainage Device, Open Approach (ICD-10-PCS; 2020-04-16)
PROC: 0B958ZZ Drainage of Right Middle Lobe Bronchus, Via Natural or Artificial Opening Endoscopic (ICD-10-PCS; 2020-04-16)
PROC: 0B9D8ZZ Drainage of Right Middle Lung Lobe, Via Natural or Artificial Opening Endoscopic (ICD-10-PCS; 2020-04-16)
PROC: 0WH903Z Insertion of Infusion Device into Right Pleural Cavity, Open Approach (ICD-10-PCS; 2020-04-16)
DX: J98.19 Other pulmonary collapse (principal); J96.01 Acute respiratory failure with hypoxia; N18.6 End stage renal disease; I12.0 Hypertensive chronic kidney disease with stage 5 chronic kidney disease or end stage renal disease; I69.354 Hemiplegia and hemiparesis following cerebral infarction affecting left non-dominant side; I13.2 Hypertensive heart and chronic kidney disease with heart failure and with stage 5 chronic kidney disease, or end stage renal disease; G93.40 Encephalopathy, unspecified; I97.88 Other intraoperative complications of the circulatory system, not elsewhere classified; J91.8 Pleural effusion in other conditions classified elsewhere; J94.2 Hemothorax; J98.11 Atelectasis; E11.22 Type 2 diabetes mellitus with diabetic chronic kidney disease; R79.89 Other specified abnormal findings of blood chemistry; E87.5 Hyperkalemia; H54.8 Legal blindness, as defined in USA; I50.9 Heart failure, unspecified; D63.1 Anemia in chronic kidney disease; E88.09 Other disorders of plasma-protein metabolism, not elsewhere classified; J94.1 Fibrothorax; R00.1 Bradycardia, unspecified; Y84.8 Other medical procedures as the cause of abnormal reaction of the patient, or of later complication, without mention of misadventure at the time of the procedure; Z28.21 Immunization not carried out because of patient refusal; Z79.899 Other long term (current) drug therapy; Z79.52 Long term (current) use of systemic steroids; Z79.4 Long term (current) use of insulin; Z99.2 Dependence on renal dialysis; Z87.891 Personal history of nicotine dependence; Z53.32 Thoracoscopic surgical procedure converted to open procedure
CPT/HCPCS: 36415; 36416; 36430; 71045; 71260; 80048; 80053; 82164; 82274; 82805; 82945; 83615; 83735; 83986; 84100; 84145; 84157; 84165; 85025; 85060; 85610; 85730; 86850; 86900; 86901; 87070; 87116; 87205; 87206; 87340; 88112; 88305; 88312; 88313; 89051; 90935; 93005; 93010; 93306; 94002; 94003; 94640; A4306; G0257; J0171; J0360; J0696; J1100; J1200; J1642; J1815; J1885; J2001; J2060; J2270; J2370; J2405; J2704; J2795; J2920; J3010; J3490; J7620; P9016; Q5105; Q9967; S0020

== ENCOUNTER 2020-05-21 10:49 | Outpatient (CLI) | payer MEDICARE ==
--- NOTE | 2020-05-21 11:39 | RAD ---
CHEST PA AND LATERAL: Date: 05/21/2020 HISTORY: Right pleural effusion. Status post thoracotomy. COMPARISON: 04/23/2020. FINDINGS: Persistent right-sided pleural effusions changes, as well as patchy parenchymal changes, particularly in the right mid and lower lung zone, with some improved aeration from the prior study. Left chest i s clear. Heart size is normal. IMPRESSION: Persistent right pleural effusion with some parenchymal changes in the mid and lower lung zone with s ome improved aeration from prior study. POS: AH
== END 2020-05-21 10:50 | disposition home or self-care (01) ==
LOC: RAD 10:49
PROVIDERS: ATTEND Thoracic Surgery (Cardiothoracic Vascular Surgery)
DX: J90 Pleural effusion, not elsewhere classified (principal)
CPT/HCPCS: 71046